=== PATIENT | male | born 1955 | race Caucasian/White ===

== ENCOUNTER → 2019-07-02 07:04 | Outpatient (CLI) | payer MEDICARE, SELFPAY ==
--- NOTE | 2019-07-02 07:07 | CA_ITS ---
APPROVED REPORT Exam: Pharmacologic Technologist: Bobbi Lyles, Ht: 5 ft 6 in Wt: 192 lbs BSA: 1.97 m2 HR: 64 bpm BP: 137/71 mmHg Rhythm: NSR,FIRST DEGREE AV BLOCK Medical History Medical History: HTN, Hyperlipidemia, CAD s/p CABG Medications: Lisinopril,,,,, Asa,,,,, Carvedilol,,,,, Flonase,,,,, Pravachol,,,,, KCL,,,,, Centrum Silver,,,,, LanoPRAZOLE,,,,, Allergies: GENTAMYACIN Cardiac Risk Factors: HTN, Hyperlipidemia, FHX of CAD, Smoking, Previous Cardiac Procedures: CABG Stress Test Details Test: LEXISCAN HR Resting HR: 65 bpm Max Heart Rate (APMHR): 158 bpm Max HR Achieved: 81 bpm Target HR (85% APMHR): 134 bpm % of APMHR: 51 Recovery HR: 70 bpm BP Resting BP: 137.0/71.0 mmHg Max BP: 154.0/80.0 mmHg Recovery BP: 151.0/80.0 mmHg ECG Resting ECG: NSR,FIRST DEGREE AV BLOCK Clinical Exercise duration: 04:04 min Highest Stage Achieved: Exercise capacity: 1.0 METs Stress ECG Conclusion DURING LEXISCAN INFUSION PATIENT HAD SOA BUT NO CHEST PAIN. NO ARRHYTHMIAS/ECTOPY. NO SIGNIFICANT ST-CHANGES. UNREMARKABLE LEXISCAN STRESS. MYOVIEW IMAGES REPORTED SEPARATELY. Test Summary REST . . . . . . . Sitting REST 03:46 . . 65 . 137/ 71 . . Stage 1 01:00 . . 76 . . . . Stage 2 01:00 . . 75 . 128/ 70 . . Stage 3 01:00 . . 74 . 137/ 74 . . Stage 4 01:00 . . 73 . 148/ 86 . . Stage 4 01:04 . . 72 . 148/ 86 . Stop exercise at 04:04 RECOVERY 01:00 . . 70 . 151/ 80 . . RECOVERY 02:00 . . 67 . 151/ 80 . . RECOVERY 03:00 . . 64 . 154/ 80 . . RECOVERY 03:27 . . 71 . 138/ 76 . . Electronically signed by : Hansel Vu, 07/09/2019 12:08:55
--- NOTE | 2019-07-02 07:07 | NM_ITS ---
APPROVED REPORT Exam: Nuclear Stress Test Indication: chest pain..cad..short of breath..fatigue Patient Location: Outpatient Stress Tech: Steffany Lyles IN Tech:Kiley ArriazaMABEL RT(R)(N) Ht: 5 ft 6 in Wt: 192 lbs HR: 64 bpm BP: 137/71 mmHg BSA: 1.97 m2 BMI: 30.9 History: chest pain..cad..short of breath..fatigue Procedure: Patient received a 0.4 mg of intravenous Lexiscan, resting heart rate 64 bpm, resting blood pressure 137/71 mmHg, with Lexiscan maximum heart rate achived was 70 bpm which is % of the maximum predicted heart rate and blood pressure was 151/80 mmHg. With Lexiscan, patient denied any complaint of chest pain. Cardiac Stress and Resting SPECT Images: Cardiac Stress and Resting SPECT images were obtained using technetium 99m Myoview 31.6 mCi stress and 10.61 mCi at rest. EF 57% Small area of redistribution at apex Conclusion: Normal EF Ischemic change at apex Electronically signed by : Timoteo Baird MD 07/03/2019 15:46:39
--- NOTE | 2019-07-02 10:05 | HMH.ITSHM ---
Current Home Medications as stated by this patient Darwin Gonzalez or goodwill representative. [] lisinopril carvedilol asp flonase centrum lansoprazole potassium chloride prarachol
== END ==
PROVIDERS: Visit Provider Physician Assistant
DX: R07.2 Precordial pain (principal); E78.5 Hyperlipidemia, unspecified; I11.9 Hypertensive heart disease without heart failure; I25.10 Atherosclerotic heart disease of native coronary artery without angina pectoris; K21.9 Gastro-esophageal reflux disease without esophagitis; R06.00 Dyspnea, unspecified; R07.9 Chest pain, unspecified; Z95.1 Presence of aortocoronary bypass graft
CPT/HCPCS: 78452; 93017; 93306; A9502; J2785

== ENCOUNTER 2020-03-15 19:56 | Emergency (ER) | payer MEDICARE, SELFPAY ==
[2020-03-15 20:05] VITALS: BP 158/66; PULSE 74; RESP 16; TEMP 36.8; O2SAT 96; BMI 26.6
--- NOTE | 2020-03-15 20:16 | CT_ITS ---
PROCEDURE: CT ABDOMEN PELVIS W CON CLINICAL INDICATION: RLQ pain Right lower quadrant pain COMPARISON: No exams were available for comparison TECHNIQUE: IV Contrast: 75ML Isovue 370 Oral Contrast 10ml Gastroview Axial images obtained with sagittal and coronal reformats. All CT scans at the facility use one or more dose reduction, viz: automated exposure control, ma/kV adjustment per patient size (including targeted exams where dose is matched to indication, i.e. head), or iterative reconstruction technique. FINDINGS: LOWER THORAX: On the most superior image there is a faint ground-glass opacity in the left lower lobe measuring 4 mm. This is incompletely imaged there are post median sternotomy changes ABDOMEN & PELVIS: The liver, spleen, adrenal glands, and kidneys have an unremarkable appearance. There is a small fat density in the junction of the body and tail the pancreas measuring 5 mm and may be due to a lipoma. There is an additional 4 mm fatty density in the head of the pancreas also which may be due to small lipoma. Unremarkable appendix. There is colonic diverticulosis but no evidence of diverticulitis. No pelvic mass or abnormal fluid collection. 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 IMPRESSION: 1. No acute finding. 2. Colonic diverticulosis without diverticulitis. 3. No evidence of appendicitis. 4. 2 small fatty areas in the pancreas which may be due to small lipomas. Follow-up may confirm stability. 5. Advanced avascular necrosis of the left hip Dictated by: Timoteo Baird MD 03/16/2020 05:50 Timoteo Baird MD in [place] 03/16/2020 05:50
--- NOTE | 2020-03-15 20:21 | PC.NURSE ---
Pt completed oral contrast Radiology did not answer
--- NOTE | 2020-03-15 20:34 | HMH.EDNVD ---
ED Disposition Clinical Impression: Abdominal pain in male, Avascular necrosis Disposition: Home, Self-Care Condition on Discharge: Good Instructions: DI for Acute Abdomen Additional Instructions: see pcp for follow up Referrals: Anthony Loyd MD [Primary Care Provider] - - Critical Care Critical Care Time: No Attestation: On 03/15/20, the high probability of a clinically significant, sudden or life threatening deterioration of the following system(s) required my full and direct attention, intervention and personal management. The time I documented below is in addition to time spent performing reported procedures but includes the following listed in this critical care notation. Medical Decision Making - Medical Records Medical records reviewed: Yes: I reviewed the patient's medical records. - [place] Inquiry Pt receiving controlled substance: No Vital Signs: 03/15/20 20:05 Temperature 98.3 F Temperature Source Oral Pulse Rate [Right] 74 Respiratory Rate 16 Blood Pressure [Right Arm] 158/66 H Blood Pressure Mean [Right Arm] 96 Blood Pressure Source [Right Arm] Automatic Cuff Blood Pressure Position [Right Arm] Sitting 02 Sat by Pulse Oximetry 96 Oxygen Delivery Method Room Air - Lab Data Lab results reviewed: Yes: I reviewed the patient's lab results. Lab Results 03/15/20 20:45: WBC 10.9 H, RBC 4.84, Hgb 15.4, Hct 45.2, MCV 93.3, MCH 31.8 H, MCHC 34.1, RDW 14.6, Plt Count 236, MPV 8.2, Neut % (Auto) 63.6, Lymph % (Auto) 22.6, Carlton % (Auto) 5.7, Eos % (Auto) 7.7, Baso % (Auto) 0.3, Neut # (Auto) 6.9, Lymph # (Auto) 2.5, Carlton # (Auto) 0.6, Eos # (Auto) 0.8 H, Baso # (Auto) 0.0, ESR 2 03/15/20 20:45: Sodium 138, Potassium 4.4, Chloride 104, Carbon Dioxide 25, Anion Gap 13.4, BUN 8 L, Creatinine 0.90, Estimated Creat Clear 80, Estimated GFR 85, Est GFR ( Amer) 103, Glucose 113 H, Calcium 9.0, Total Bilirubin 0.3, AST 30, ALT 30, Alkaline Phosphatase 63, C-Reactive Protein 0.7, Total Protein 7.3, Albumin 4.4, Globulin 2.9, Albumin/Globulin Ratio 1.5, Amylase 79, Lipase 171 03/15/20 22:30: Urine Color Yellow, Urine Appearance Clear, Urine pH 6.5, Ur Specific [place] <= 1.005, Urine Protein Negative, Urine Glucose (UA) Negative, Urine Ketones Negative, Urine Blood Negative, Urine Nitrate Negative, Urine Bilirubin Negative, Urine Urobilinogen 0.2, Ur Leukocyte Esterase Negative Result diagrams: 03/15/20 20:45 03/15/20 20:45 Orders (Tests/Meds): ED MEDICATIONS Generic Name Dose Route Start Last Admin Trade Name Freq PRN Reason Stop Dose Admin Sodium Chloride 1,000 mls @ 999 mls/hr 03/15/20 20:30 03/15/20 20:48 Sod Chlor 0.9% 1000ml Bag IV 03/15/20 21:30 999 mls/hr .Q1H1M MARCO Administration Discontinued Medications Generic Name Dose Route Start Last Admin Trade Name Freq PRN Reason Stop Dose Admin Diatrizoate Meglum/Diatrizoate Sod 30 ml 03/15/20 20:20 03/15/20 20:21 Diatrizoate Angy 66% & Diatrizoate Na 10% 30ml Udc PO 03/15/20 20:21 30 ml ONCE ONE Administration Iopamidol 75 ml 03/15/20 22:16 03/15/20 22:17 Iopamidol-370 (76%);100ml Bottle IV 03/15/20 22:17 75 ml ONCE ONE Administration Sodium Chloride 10 ml 03/15/20 22:16 03/15/20 22:17 Sodium Chloride 0.9% 10ml Syr (Rad Only) IV 03/15/20 22:17 10 ml ONCE ONE Administration ORDERS Category Date Time Status CT abdomen pelvis w con Stat Cat Scan 03/15/20 20:16 Taken UA [Urinalysis and Microscopic] Stat Lab 03/15/20 22:30 Results - CT Data CT Scan: Abdomen, Pelvis Time Received: 22:[address] Reviewed: Yes: I have viewed the radiologist's interpretation Preliminary Findings: Abnormal (see report ) Nausea/Vomiting/Diarrhea HPI - General Chief complaint: Abdominal Pain Stated complaint: Abd Pain Time Seen by Provider: 03/15/20 20:10 Mode of Arrival: Ambulatory Source of Information: Patient, Spouse, Medical Record Limitations: No Limitations Description of Symptoms (Recal
[2020-03-15 20:53] LABS: Basophils % 0.3 % (0.1-2.0); Eosinophils # 0.8 K/mm3 (0.0-0.4); Eosinophils % 7.7 % (0.1-12.0); Hematocrit 45.2 % (42.0-52.0); Hemoglobin 15.4 g/dL (14.1-18.0); Lymphocytes # 2.5 K/mm3 (0.7-4.5); Lymphocytes % 22.6 % (10-50); Mean Corpuscular HGB Conc 34.1 g/dL (31.8-35.4); Mean Corpuscular Hemoglobin 31.8 pg (27.0-31.2); Mean Corpuscular Volume 93.3 fl (80-94); Mean Platelet Volume 8.2 fl (7.4-10.4); Monocytes # 0.6 K/mm3 (0.1-1.0); Monocytes % 5.7 % (1.7-9.3); Neutrophils # 6.9 K/mm3 (1.8-7.8); Neutrophils % 63.6 % (37.0-80.0); Platelet Count 236 K/mm3 (142-424); Red Blood Count 4.84 M/mm3 (4.60-6.20); Red Cell Distribution Width 14.6 % (11.5-17.5); White Blood Count 10.9 K/mm3 (4.8-10.8)
[2020-03-15 20:57] LABS: Chloride 104 mmol/L (98-107); Sodium 138 mmol/L (136-145)
[2020-03-15 20:58] LABS: Potassium 4.4 mmoL/L (3.5-5.1)
[2020-03-15 21:00] LABS: Alanine Aminotransferase 30 U/L (12-78); Alkaline Phosphatase 63 U/L (38-126); Amylase 79 U/L (30-110); Anion Gap 13.4 mEq/L (5-15); Aspartate Amino Transferase 30 U/L (17-59); Bilirubin,Total 0.3 mg/dl (0.2-1.3); Blood Urea Nitrogen 8 mg/dl (9-20); Carbon Dioxide 25 mmol/L (22.0-30.0); Creatinine Clearance Estimated 80 mL/min (50-200); Estimated Glomerular Filt Rate 85 ml/min (>60); GFR (African American) 103 ML/MIN (>60)
[2020-03-15 21:01] LABS: Albumin Level 4.4 g/dl (3.5-5.0); Albumin/Globulin Ratio 1.5 (1.1-1.8); Globulin 2.9 g/dL (1.3-3.2); Glucose 113 mg/dl (74-100); Lipase 171 U/L (23-300); Total Protein,Serum 7.3 g/dl (6.3-8.2)
[2020-03-15 21:06] LABS: C-Reactive Protein 0.7 mg/L (0-4)
[2020-03-15 22:08] LABS: Erythrocyte Sedimentation Rate 2 mm/hr (0-20)
[2020-03-15 22:46] LABS: Microscopic, Urine URINE MICROSCOPIC (MICROSCOPIC)
[2020-03-15 22:49] LABS: Appearance,Urine CLEAR (Clear); Bilirubin,Urine Negative (Negative); Blood, Urine Negative (Negative); Color,Urine YELLOW (Yellow); Glucose,Urine (UA) Negative (Negative); Ketones,Urine Negative (Negative); Leukocyte Esterase,Urine Negative (Negative); Nitrate,Urine Negative (Negative); PH,Urine 6.5 (5.0-8.5); Protein,Urine Negative (Negative); Specific Gravity, Urine <= 1.005 (1.005-1.030); Urobilinogen,Urine 0.2 EU/dl (0.2)
[2020-03-15 23:03] VITALS: BP 121/61; PULSE 78; RESP 16; TEMP 36.6
[2020-03-15 23:03] LABS: WBC,Urine Occasional #/hpf (0-3)
[2020-03-15 23:04] LABS: Squamous Epithelial Cell,Urine Occasional #/hpf (0-5)
== END 2020-03-15 23:12 | disposition home or self-care (01) ==
PROVIDERS: Emergency Provider Emergency Medicine; PCP Emergency Medicine
DX: R10.31 Right lower quadrant pain (principal); M87.00 Idiopathic aseptic necrosis of unspecified bone; I10 Essential (primary) hypertension; I25.10 Atherosclerotic heart disease of native coronary artery without angina pectoris; K21.9 Gastro-esophageal reflux disease without esophagitis; E78.5 Hyperlipidemia, unspecified; F17.210 Nicotine dependence, cigarettes, uncomplicated; Z79.899 Other long term (current) drug therapy
CPT/HCPCS: 74177; 80053; 81001; 82150; 83690; 85025; 85651; 86140; 96365; 96375; 99283; Q9967

== ENCOUNTER → 2020-04-12 12:30 | Outpatient (CLI) | payer MEDICARE, SELFPAY ==
--- NOTE | 2020-04-12 12:35 | XR_ITS ---
PROCEDURE: XR HIP LT 2-3V W/PELVIS CLINICAL INDICATION: left hip pain COMPARISON: No exams were available for comparison FINDINGS: There is avascular necrosis of the left femoral head with collapse the left femoral cortex superiorly with associated osteoarthritic changes. No acute fracture or dislocation is evident. IMPRESSION: Severe avascular necrosis of the left hip with associated secondary osteoarthritic changes. Dictated by: Timoteo Baird MD 04/12/2020 14:56 Timoteo Baird MD in [place] 04/12/2020 14:56
== END ==
PROVIDERS: PCP Emergency Medicine; Visit Provider Orthopaedic Surgery
DX: M25.552 Pain in left hip (principal)
CPT/HCPCS: 73502

== ENCOUNTER → 2020-05-07 11:31 | Outpatient (CLI) | payer MEDICARE, SELFPAY ==
[2020-05-07 13:19] LABS: Coronavirus 19 IgG Antibody Negative (Negative); Coronavirus 19 IgM Antibody Negative (Negative)
== END ==
PROVIDERS: Visit Provider Internal Medicine Gastroenterology
DX: Z01.812 Encounter for preprocedural laboratory examination (principal); Z11.52 Encounter for screening for COVID-19; Z12.11 Encounter for screening for malignant neoplasm of colon; R10.31 Right lower quadrant pain
CPT/HCPCS: 36415; 86328

== ENCOUNTER 2020-05-09 10:19 | Day surgery (SDC) | payer MEDICARE, SELFPAY ==
[2020-05-03 11:38] VITALS: BMI 30.9
[2020-05-09 10:53] VITALS: BP 156/89; PULSE 75; RESP 18; TEMP 36.2; O2SAT 98
--- NOTE | 2020-05-09 11:34 | P.PN_ITS ---
[facility] Anesthesia Checklist - Patient Identification Patient Identification: Arm Band - Structural Data Admitted From: Home Planned Operative Procedure/s: colonoscopy Consent for Planned Operative Procedure(s) Verified: Yes Verified Documents: Surgical Consent, History and Physical - NPO Status Verified Time NPO: 00:00 - Additional verifications Anesthesia Reactions: No - Airway Assessment C-Spine Mobility Assessed: Yes (mp2) TMJ Mobility Assessed: Yes Dentition: Dentures-good fit - Neurological Assessment Level of Consciousness: Awake, Alert - Anesthesia Plan Anesthesia Risk discussed: Yes Anesthesia Plan: Verified ASA Class: III Anesthesia Type: MAC [facility] History I have reviewed the patient's past medical history: Yes Medical History: Reports:: Coronary Artery Disease, Gastroesophageal Reflux Disease(GERD), Hyperlipidemia, Hypertension Denies:: Cancer, Diabetes Mellitus Type 1, Diabetes Mellitus Type 2, Internal Pacemaker, MRSA, Seizures *Have you ever received a pneumonia vaccine?: Yes *Have you received a flu vaccine this season?: Yes Anesthesia experience/problems:: nac Other Surgeries: Yes: CABG, Cardiac Catheterization, Cardiac Surgery, Colonoscopy, Coronary Stent. No: Pacemaker Amputation: No Fractures: No - *Social History Last grade of school completed: High school graduate Smoking Status: Former smoker Tobacco Type: cigarettes # Packs/Day (cigarettes): 1 Smoking End Date: 06/2019 Alcohol Intake: current Alcohol Intake Frequency:: a few times a week Substance Use Type: marijuana *Occupational Status:: retired Housing: house Household Members: significant other *Travel in the last 8 weeks: None Family Hx:: Coronary Artery Disease
[2020-05-09 11:53] VITALS: BP 92/53; PULSE 66; RESP 16; TEMP 36.3; O2SAT 94
--- NOTE | 2020-05-09 11:54 | P.PCN_ITS ---
[facility] Procedure Note Procedure Note:: Colonoscopy Procedure Report: Colonoscopy Endoscopist: Demetris Salguero II, MD Referring physician: Anthony Loyd MD Date of Procedure: May 09, 2020 Equipment: Olympus 180 variable stiffness pediatric colonoscope Sedation: MAC sedation Indication: Mr. Gonzalez is a 64-year-old gentleman who reports right lower quadrant abdominal pain and discomfort. He has had some straining and hard stools that have improved with stool softeners. The patient also has moderate gassiness. He reports no significant bloating. He reports no rectal bleeding, weight loss or family history of colon cancer. He has had 3 prior colonoscopies and his last was 4 years ago in [facility]. The patient did have a recent CT scan of the abdomen and pelvis that was reportedly normal. Procedure: Prior to the procedure, a history and physical exam was performed, and patient's medications and allergies were reviewed. The risks, benefits and alternatives of the sedation and procedure were discussed with the patient. All questions were answered and informed consent was obtained. The patient was brought to the procedure room. Patient identification and proposed procedure were verified by the physician and the nurse. The patient was placed in a left lateral decubitus position and the scope was passed under direct vision. Throughout the procedure, the patient's blood pressure, pulse, and oxygen saturations were monitored continuously. The colonoscopy was accomplished without difficulty. The patient tolerated the procedure well. Findings: On digital rectal examination there was normal rectal tone. There were no external hemorrhoids. The colonoscope was introduced through the anal canal to the rectum and advanced to the cecum. The ileocecal valve and appendiceal orifice were identified. The scope was advanced a short distance into the ileum which appeared grossly normal. The scope was then withdrawn into the colon. The cecum, ascending and transverse colon and mucosa were grossly normal. There were scattered diverticuli throughout the descending and sigmoid colon (LEFT colon). The rectum itself was normal. Upon retroflexion within the rectum there were grade 1-2 internal hemorrhoids. The preparation was excellent throughout with [place] Preparation Score of 9. The cecal time was 10 minutes. Impression: 1. Left-sided diverticulosis 2. Grade 1-2 Plan: I would strongly encourage dietary measures and a fiber bowel regimen on a long- term daily maintenance basis. I do feel that he has some functional abdominal pain/hepatic flexure syndrome.
[2020-05-09 12:03] VITALS: BP 98/56; PULSE 72; RESP 16; O2SAT 95
[2020-05-09 12:13] VITALS: BP 95/56; PULSE 75; RESP 16; O2SAT 94
[2020-05-09 12:23] VITALS: BP 100/60; PULSE 63; RESP 16; O2SAT 95
[2020-05-09 12:53] VITALS: BP 132/77; PULSE 66; RESP 16; O2SAT 95
== END 2020-05-09 12:53 | disposition home or self-care (01) ==
LOC: OUTP 10:21
PROVIDERS: PCP Emergency Medicine; Visit Provider Internal Medicine Gastroenterology
PROC: 0DJD8ZZ Inspection of Lower Intestinal Tract, Via Natural or Artificial Opening Endoscopic (ICD-10-PCS; CPT 45378; principal; 2020-05-09 11:30)
DX: K57.30 Diverticulosis of large intestine without perforation or abscess without bleeding (principal); K64.0 First degree hemorrhoids; I25.10 Atherosclerotic heart disease of native coronary artery without angina pectoris; J44.9 Chronic obstructive pulmonary disease, unspecified; I11.9 Hypertensive heart disease without heart failure; K21.9 Gastro-esophageal reflux disease without esophagitis; E78.5 Hyperlipidemia, unspecified; F12.90 Cannabis use, unspecified, uncomplicated; Z72.0 Tobacco use; Z72.89 Other problems related to lifestyle; Z95.1 Presence of aortocoronary bypass graft; Z88.1 Allergy status to other antibiotic agents
CPT/HCPCS: 45378

== ENCOUNTER → 2020-06-30 13:05 | Outpatient (CLI) | payer MEDICARE, SELFPAY | PROVIDERS: PCP Emergency Medicine; Visit Provider Urology | DX: I25.10 Atherosclerotic heart disease of native coronary artery without angina pectoris (principal) | CPT/HCPCS: 93306 ==

== ENCOUNTER → 2020-08-09 12:01 | Outpatient (CLI) | payer MEDICARE, SELFPAY ==
[2020-08-09 12:03] LABS: Microscopic, Urine URINE MICROSCOPIC (MICROSCOPIC)
[2020-08-09 12:28] LABS: Appearance,Urine CLEAR (Clear); Bilirubin,Urine Negative (Negative); Blood, Urine Negative (Negative); Color,Urine YELLOW (Yellow); Glucose,Urine (UA) Negative (Negative); Ketones,Urine Negative (Negative); Leukocyte Esterase,Urine Negative (Negative); Nitrate,Urine Negative (Negative); Protein,Urine Negative (Negative); Urobilinogen,Urine 0.2 EU/dl (0.2)
[2020-08-09 12:34] LABS: Basophils % 0.4 % (0.1-2.0); Eosinophils # 0.8 K/mm3 (0.0-0.4); Eosinophils % 8.3 % (0.1-12.0); Hematocrit 44.4 % (42.0-52.0); Hemoglobin 14.4 g/dL (14.1-18.0); Lymphocytes # 2.6 K/mm3 (0.7-4.5); Lymphocytes % 28.7 % (10-50); Mean Corpuscular HGB Conc 32.4 g/dL (31.8-35.4); Mean Corpuscular Hemoglobin 30.3 pg (27.0-31.2); Mean Corpuscular Volume 93.7 fl (80-94); Monocytes # 0.6 K/mm3 (0.1-1.0); Monocytes % 6.1 % (1.7-9.3); Neutrophils # 5.2 K/mm3 (1.8-7.8); Neutrophils % 56.6 % (37.0-80.0); Platelet Count 234 K/mm3 (142-424); Red Blood Count 4.74 M/mm3 (4.60-6.20); Red Cell Distribution Width 15.3 % (11.5-17.5); White Blood Count 9.2 K/mm3 (4.8-10.8)
[2020-08-09 13:09] LABS: Alanine Aminotransferase 28 U/L (12-78); Albumin Level 4.4 g/dl (3.5-5.0); Albumin/Globulin Ratio 1.6 (1.1-1.8); Alkaline Phosphatase 63 U/L (38-126); Anion Gap 12.7 mEq/L (5-15); Aspartate Amino Transferase 29 U/L (17-59); Bilirubin,Total 0.4 mg/dl (0.2-1.3); Blood Urea Nitrogen 15 mg/dl (9-20); Calcium 9.5 mg/dl (8.4-10.2); Carbon Dioxide 24 mmol/L (22.0-30.0); Chloride 108 mmol/L (98-107); Estimated Glomerular Filt Rate 85 ml/min (>60); GFR (African American) 103 ML/MIN (>60); Globulin 2.8 g/dL (1.3-3.2); Glucose 104 mg/dl (74-100); Potassium 4.7 mmoL/L (3.5-5.1); Sodium 140 mmol/L (136-145); Total Protein,Serum 7.2 g/dl (6.3-8.2)
== END ==
PROVIDERS: Visit Provider Orthopaedic Surgery
DX: R10.9 Unspecified abdominal pain (principal); Z01.818 Encounter for other preprocedural examination; I10 Essential (primary) hypertension; M87.00 Idiopathic aseptic necrosis of unspecified bone
CPT/HCPCS: 36415; 80053; 81001; 85025; 86850

== ENCOUNTER → 2020-08-11 06:37 | Outpatient (CLI) | payer MEDICARE, SELFPAY ==
--- NOTE | 2020-08-11 06:48 | CT_ITS ---
PROCEDURE: CT HIP LT WO CON CLINICAL HISTORY: Avascular Necrosis Preop planning COMPARISON: CT CT ABDOMEN PELVIS W CON from 03/15/2020 CR XR HIP LT 2-3V W/PELVIS from 04/12/2020 TECHNIQUE: Axial images obtained with sagittal and coronal reformats. All CT scans at the facility use one or more dose reduction, viz: automated exposure control, ma/kV adjustment per patient size (including targeted exams where dose is matched to indication, i.e. head), or iterative reconstruction technique. FINDINGS: There is fragmentation of the left femoral head with subchondral sclerosis. A geographic zone demarcation is noted in the mid aspect of the left femoral head with mild impaction of the fragments. There are severe osteoarthritic changes of the left hip. Subchondral cystic areas are present in the acetabulum and femoral head. Left hip joint effusion is noted. There is minimal capsular calcification posteriorly. IMPRESSION: Advanced avascular necrosis of the left femoral head with fragmentation and impaction of the fragments. This is associated with severe osteoarthritic changes of the left hip and a moderate-sized hip joint effusion. Dictated by: Timoteo Baird MD 08/12/2020 15:05 Timoteo Baird MD in [place] 08/12/2020 15:05
--- NOTE | 2020-08-11 06:56 | XR_ITS ---
PROCEDURE: XR CHEST 2V CLINICAL HISTORY: Heart disease, former smoker COMPARISON: CR XR CHEST 2V from 06/22/2019 FINDINGS: Prior median sternotomy. Normal heart size. The lungs are clear without infiltrates, suspicious nodules, or pleural effusions. No acute bony abnormalities. IMPRESSION: No acute findings. Dictated by: Timoteo Baird MD 08/11/2020 07:21 Timoteo Baird MD in [place] 08/11/2020 07:21
== END ==
PROVIDERS: PCP Emergency Medicine; Visit Provider Orthopaedic Surgery
DX: M25.552 Pain in left hip (principal); I10 Essential (primary) hypertension; Z87.891 Personal history of nicotine dependence
CPT/HCPCS: 71046; 73700

== ENCOUNTER → 2020-08-13 13:07 | Outpatient (CLI) | payer MEDICARE, SELFPAY | PROVIDERS: PCP Emergency Medicine; Visit Provider Orthopaedic Surgery | DX: M87.00 Idiopathic aseptic necrosis of unspecified bone (principal); Z01.818 Encounter for other preprocedural examination; Z11.52 Encounter for screening for COVID-19 | CPT/HCPCS: U0003 ==

== ENCOUNTER 2020-08-15 10:31 | Observation (INO) | payer MEDICARE, SELFPAY ==
[2020-08-09 15:00] VITALS: BMI 31.1
[2020-08-15] VITALS (23 sets, daily range): BP systolic 91–160; BP diastolic 41–83; PULSE 60–90; RESP 16–22; TEMP 36.4–42.7; O2SAT 96–100; BMI 31.2
--- NOTE | 2020-08-15 10:43 | HMH.ANESCL ---
[facility] Anesthesia Checklist - Patient Identification Patient Identification: Arm Band - Structural Data Admitted From: Home Planned Operative Procedure/s: Left Total Hip Arthroplasty Consent for Planned Operative Procedure(s) Verified: Yes Verified Documents: Surgical Consent, History and Physical - NPO Status Verified Time NPO: 00:00 - Additional verifications Anesthesia Reactions: No Hx Blood Transfusions: No Blood Transfusion Reaction: No - Airway Assessment C-Spine Mobility Assessed: Yes (mp2) TMJ Mobility Assessed: Yes Dentition: Good Dentition (upper dentures. lower dentition intact) - Neurological Assessment Level of Consciousness: Awake, Alert - Anesthesia Plan Anesthesia Risk discussed: Yes Anesthesia Plan: Verified ASA Class: III Anesthesia Type: MAC w/Spinal [facility] History I have reviewed the patient's past medical history: Yes Medical History: Reports:: Chronic Obstructive Pulmonary Disease (COPD), Coronary Artery Disease, Gastroesophageal Reflux Disease(GERD), Hepatitis (Hx Hep C 2006), Hyperlipidemia, Hypertension Denies:: Cancer, Diabetes Mellitus Type 1, Diabetes Mellitus Type 2, Internal Pacemaker, MRSA, Seizures *Have you ever received a pneumonia vaccine?: Yes *Have you received a flu vaccine this season?: No Other Medical History: Denies: Blood Transfusion Reaction Anesthesia experience/problems:: nac Other Surgeries: Yes: CABG, Cardiac Catheterization, Cardiac Surgery, Colonoscopy, Coronary Stent. No: Pacemaker Amputation: No Fractures: No - *Social History Last grade of school completed: High school graduate Smoking Status: Former smoker Tobacco Type: cigarettes # Packs/Day (cigarettes): 1 Smoking End Date: 04/2020 Alcohol Intake: current Alcohol Intake Frequency:: 0-2 drinks per day Substance Use Type: marijuana *Occupational Status:: retired Housing: house Household Members: significant other *Travel in the last 8 weeks: None Family Hx:: Coronary Artery Disease
--- NOTE | 2020-08-15 13:16 | SUR.OPER ---
1230-family updated at this time
--- NOTE | 2020-08-15 13:41 | SUR.OPER ---
1335-surgeon irrigated/soaked wound with betadine mixed in normal saline for 3 minutes 1341- family updated at this time
--- NOTE | 2020-08-15 14:15 | HMH.PHAINT ---
MEDICATION RECONCILIATION COMPLETED ON PATIENT USING EXTERNAL FILL HISTORY FROM PHARMACY. -TANIKA COLBY, MALICKD
--- NOTE | 2020-08-15 14:35 | XR_ITS ---
PROCEDURE: XR HIP LT 2-3V W/PELVIS CLINICAL INDICATION: s/p left total hip arthroplasty COMPARISON: CR XR HIP LT 2-3V W/PELVIS from 04/12/2020 FINDINGS: Status post total left hip arthroplasty. There is good alignment with no evidence of orthopedic complication. Postsurgical gas is present. IMPRESSION: Good alignment status post total left hip arthroplasty Dictated by: Timoteo Baird MD 08/15/2020 15:40 Timoteo Baird MD in [place] 08/15/2020 15:40
--- NOTE | 2020-08-15 14:37 | P.PN_ITS ---
[facility] Anesthesia Record Part I Intake, IV Amount: 1,200 Estimated blood loss (mL): 200 Urine output (mL): 800 Blood Pressure: 91/58 SaO2: 96 Pulse Rate: 63 Respiratory Rate: 16 Temperature: 97.5 F Patient is:: Drowsy, Stable Stable to PACU at:: 14:30
--- NOTE | 2020-08-15 14:51 | PC.NURSE ---
144-radiology at bedside
--- NOTE | 2020-08-15 15:31 | PC.NURSE ---
1501-detailed report called to YANELY Raymond 1506-pt transported to 2nd floor room 200 via hospital bed per YANELY Thompson and ST Roni with isela le sup, vss, pt stable upon discharge from pacu
--- NOTE | 2020-08-15 15:31 | HMH.OPNOTE ---
Date of procedure: 08/15/20 Pre-op Diagnosis:: 1. Avascular necrosis left femoral head 2. Degenerative arthritis, left hip Post-op Diagnosis:: Same Procedure performed:: Uncemented total hip arthroplasty, left Surgeon:: Virgilio Neal MD Director Of Neurology(s):: Kiley Bearden STRATEGIC PARTNER DEVELOPMENT MANAGER:: Bruce Meza Anesthesia: spinal Estimated blood loss (mL): 200 Clinical Note:: Patient is a 64-year-old male with severe avascular necrosis of the femoral head with secondary degenerative arthritis of the LEFT hip unresponsive to conservative management. He is having severe left hip pain and significant disability and has not responded well to conservative management. His mobility, ability to work, and quality of life is severely impacted. The pain is also affecting his lifestyle, activities of daily living and significantly impacting his sleep. Also he is at a high risk of falls from the arthritis. Therefore a total hip arthroplasty is indicated to relieve pain and to reduce the disability and risk of falls. Please refer to my office note for full details. Operative findings:: Preoperative examination and x-ray findings were consistent with the above diagnosis. Intraoperatively, softening on collapse of the femoral head with marked degenerative changes of the hip joint are noted. The femoral head was grossly deformed with softening and destruction of the articular cartilage; osteophytes were noted on both the acetabular and the femoral side. The capsule/soft tissues are contracted and tight. The capsule was thickened and range of motion was decreased. The bone quality is good. Operative note:: On the day of the procedure the patient was met in the preoperative area and the patient was positively identified. A physical examination was performed and documented. The operative site was appropriately marked and initialed by me. I again reviewed the diagnosis, natural history and management options in detail including both nonsurgical and surgical. We discussed the proposed surgery, risks and benefits and alternatives in detail. The complications discussed include but are not limited to infection, bleeding, injury to nerves, blood vessels and tendons, DVT and PE, fracture, limb length inequality, dislocation, implant malpositioning, implant failure, squeaking, loosening, acetabular wear, osteolysis, periprosthetic femur fracture, heterotopic ossification, abductor weakness and limp, incomplete relief of pain, incomplete recovery of function, chronic pain, likely need for further surgery in future including revision, anesthetic complications including heart attack, stroke and even . We also discussed the postoperative recovery and rehabilitation. Patient verbalized a good understanding and wished to proceed with the proposed surgery. Patient understood the risks, agreed to proceed with surgery, signed the consent form and no guarantees or assurances were given or implied. The patient was brought to the operating room and a spinal anesthesia was administered by the general matcher. The patient was then positioned in the RIGHT lateral decubitus position with the LEFT hip facing up. We used [employer] hip positioner for this. All the bony prominences were appropriately padded. The LEFT hip was then prepped with isopropyl alcohol followed by chlorhexidine and draped in the usual sterile fashion. The entire operative team wore isolation suits and the Operating Room traffic was controlled. The skin incision was marked for a posterior approach to the hip joint. The perineum and the operative site were sealed off with Ioban drape. A preprocedure timeout was performed as per hospital protocol identifying the patient, correct surgery and correct site. Administration of prophylactic antibiotics (IV Ancef and vancomycin) was confirmed with the general matcher. Before completion of the procedure 1 more gram of IV Ancef was administered as the operating time was over 2 hours. We have also administered IV tranex
--- NOTE | 2020-08-15 16:21 | P.PN_ITS ---
[facility] Anesthesia Record Part II Discharge Time: 15:00 Destination: Medical Surgical Department PACU nurse assessment reviewed?: Yes Patient Condition:: Good Anesthesia Complications:: None Swallowing reflex intact?: Yes Cyanosis?: No Blood Pressure: 118/70 Pulse Rate: 61 Temperature: 97.7 F Mental Status: Alert & Oriented Pain level:: 0 Nausea and/or vomitting:: None Intake, IV Amount: 0
--- NOTE | 2020-08-15 16:45 | HMH.ORTHHP ---
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 He is admitted to hospital following an uncomplicated primary left total hip arthroplasty today. He has been having worsening pain in his left hip for several years and the condition has gradually gotten worse. He states the problem started after he fell 6 years ago dislocating his left hip. He states he was treated non operatively with physical therapy. He states that over the last few years, his pain has gradually gotten worse. He localizes the pain to left groin and posterior aspect of the left hip. He also reports radiation of the pain into the left thigh. He says he has constant pain and rates that a 7 out of 10 at rest and 10 out of 10 at its worse. He states standing, sitting and walking aggravates his pain. He has tried over the counter arthritis medication, NSAIDs, heat and rest with no relief. He says his walking distance is severely limited secondary to the hip pain. He also reports significant difficulty with activities of daily living and reports sleep disturbance on a nightly basis. He also reports that the left hip gives out and he is at risk of falls. No history of any right hip pain. He has history of chronic back pain without radicular symptoms. No history of any distal tingling or numbness. No history of any systemic symptoms like fevers, chills or rigors. 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 His medical history includes hypertension, hyperlipidemia, GERD, coronary artery disease, COPD and hypertensive heart disease. He reports that he stopped smoking couple of months ago and is using nicotine patch. Clinical exam and imaging is consistent with advanced avascular necrosis of the left femoral head with collapse and secondary degenerative arthritis of the hip joint. Hip movements are markedly limited and painful. A left total hip arthroplasty is indicated to reduce the risk of falls, improve the pain, mobility and quality of life. The surgical and nonsurgical alternatives were discussed in detail with the patient as well as the risks and benefits of the surgery. Please refer to my office note for full details. [facility] History I have reviewed the patient's past medical history: Yes Medical History: Reports:: Chronic Obstructive Pulmonary Disease (COPD), Coronary Artery Disease, Gastroesophageal Reflux Disease(GERD), Hepatitis (Hx Hep C 2006), Hyperlipidemia, Hypertension Denies:: Cancer, Diabetes Mellitus Type 1, Diabetes Mellitus Type 2, Internal Pacemaker, MRSA, Seizures *Have you ever received a pneumonia vaccine?: Yes *Have you received a flu vaccine this season?: No Other Medical History: Denies: Blood Transfusion Reaction Anesthesia experience/problems:: nac Other Surgeries: Yes: CABG, Cardiac Catheterization, Cardiac Surgery, Colonoscopy, Coronary Stent. No: Pacemaker Amputation: No Fractures: No - *Social History Last grade of school completed: High school graduate Smoking Status: Former smoker Tobacco Type: cigarettes # Packs/Day (cigarettes): 1 Smoking End Date: 04/2020 Alcohol Intake: current Alcohol Intake Frequency:: 0-2 drinks per day Substance Use Type: marijuana *Occupational Status:: retired Housing: house Household Members: significant other *Travel in the last 8 weeks: None Family Hx:: Coronary Artery Disease Review of Systems - Review of Systems Review of systems:: pertinent systems reviewed and negative unless documented below - Constitutional Denies body ache(s), Denies chills, Denies fever(s) - Eyes Denies change in vision - ENT Denies abnormal hearing - *Cardiovascular Denies chest pain, Denies shortness of breath - *Respiratory Denies chest congestion, Denies cough - *Gastrointestinal Denies abdo
[2020-08-15 17:07] LABS: Microscopic,Cath URINE MICROSCOPIC (MICROSCOPIC)
[2020-08-15 17:22] LABS: Appearance,Urine/Cath CLEAR (Clear); Bilirubin,Cath Negative (Negative); Blood, Urine/Cath Negative (Negative); Color,Urine/Cath YELLOW (Yellow); Glucose,Urine/Cath (UA) Negative (Negative); Ketones,Urine/Cath TRACE (Negative); Leukocyte Esterase,Cath Negative (Negative); Nitrate,Cath Negative (Negative); Protein,Urine/Cath Negative (Negative); Urobilinogen,Cath 0.2 EU/dl (0.2)
--- NOTE | 2020-08-15 18:38 | HMH.ACPN2 ---
Internal Medicine - PN: Subj *Date: 08/15/20 *Time: 18:38 Interval history: Patient is a 64-year-old white male, status post left total hip earlier today. We are asked to follow him medically. He has a history of coronary artery disease, status post 5 vessel bypass in 2013. He has done well following the surgery. He is actively followed by the cardiology service, Dr. Vu. He was cleared preoperatively via GXT. Patient is awake, alert and clear. He is having some pain in the left hip and discomfort at the site of the catheter insertion. Draining clear yellow urine. Distal extremities are well perfused, calves are nontender. His heart has a regular S1-S2 his lungs are clear. Exam Vital signs and Labs for Last 24 Hours: Temp Pulse Resp BP Pulse Ox 97.7 F 61 18 118/70 99 08/15/20 16:22 08/15/20 16:22 08/15/20 15:00 08/15/20 16:22 08/15/20 15:31 Laboratory Results - last 24 hr 08/15/20 10:15: Blood Type A Positive, Antibody Screen Negative 08/15/20 14:44: Urine Color Yellow, Urine Appearance Clear, Urine pH 6.0, Ur Specific [place] 1.010, Urine Protein Negative, Urine Glucose (UA) Negative, Urine Ketones Trace, Urine Blood Negative, Urine Nitrate Negative, Urine Bilirubin Negative, Urine Urobilinogen 0.2, Ur Leukocyte Esterase Negative I & O for Last 24 hours: Intake & Output 08/12/20 08/13/20 08/14/20 08/15/20 23:59 23:59 23:59 23:59 Intake Total 1560 / 1560 Output Total 400 / 400 Balance 1160 / 1160 Weight 193 lb 7 oz - Constitutional no acute distress - *Routine HEENT Exam Head: Present: normocephalic Eye: Present: EOMI, PERRL ENT: Present: mucous membranes moist - *Routine Neck Exam Present: supple. Absent: lymphadenopathy - *Routine Respiratory Exam Present: CTA bilaterally - *Routine Cardiovascular Exam Present: RRR - *Routine Abdominal Exam Present: soft, normoactive bowel sounds. Absent: tenderness - *Routine Extremities Exam Present: tenderness. Absent: cyanosis, clubbing, edema, full ROM, calf tenderness - *Routine Skin Exam Present: warm. Absent: rash - *Routine Neurological Exam Present: alert, oriented X3, vision grossly intact, hearing grossly intact. Absent: moving all extremities, facial asymmetry Assessment and Plan (1) Osteoarthritis of left hip Status: Acute Category: Medical Code(s): M16.12 - Unilateral primary osteoarthritis, left hip (2) S/P total hip arthroplasty Status: Acute Category: Surgical Code(s): Z96.649 - Presence of unspecified artificial hip joint (3) Avascular necrosis Status: Acute Category: Medical Code(s): M87.00 - Idiopathic aseptic necrosis of unspecified bone (4) CAD (coronary artery disease) Status: Chronic Qualifiers: Coronary Disease-Associated Artery/Lesion type: unspecified vessel or lesion type [place] vs. transplanted heart: [place] heart Associated angina: with unstable angina Qualified Code(s): I25.110 - Atherosclerotic heart disease of [place] coronary artery with unstable angina pectoris Category: Medical Code(s): I25.10 - Atherosclerotic heart disease of [place] coronary artery without angina pectoris (5) Gastroesophageal reflux disease Status: Chronic Qualifiers: Esophagitis presence: esophagitis presence not specified Qualified Code(s): K21.9 - Gastro-esophageal reflux disease without esophagitis Category: Medical Code(s): K21.9 - Gastro-esophageal reflux disease without esophagitis (6) H/O five vessel coronary artery bypass Status: Chronic Category: Surgical Code(s): Z95.1 - Presence of aortocoronary bypass graft (7) HHD (hypertensive heart disease) Status: Chronic Qualifiers: Heart failure presence: without heart failure Qualified Code(s): I11.9 - Hypertensive heart disease without heart failure Category: Medical Code(s): I11.9 - Hypertensive heart disease without heart failure (8) HLD (hyperlipidemia) Status
[2020-08-16] VITALS (11 sets, daily range): BP systolic 111–136; BP diastolic 43–71; PULSE 76–91; RESP 16–20; TEMP 36.6–36.9; O2SAT 96–100; BMI 30.9
--- NOTE | 2020-08-16 04:06 | PC.NURSE ---
pt alert and oriented. iv patent and infusing per order. dressing to left hip is C/D/I. ice pack applied. abductor pillow in place. scuds on. pt has reported pain throughout the night but has decreased on pain scale since beginning of shift. prn meds given with relief. mojica in place and draining clear yellow urine. call light in reach. vss. will continue to monitor pt condition.
[2020-08-16 06:28] LABS: Basophils % 0.3 % (0.1-2.0); Eosinophils # 0.2 K/mm3 (0.0-0.4); Eosinophils % 2.2 % (0.1-12.0); Hematocrit 36.7 % (42.0-52.0); Lymphocytes # 1.7 K/mm3 (0.7-4.5); Lymphocytes % 19.7 % (10-50); Mean Corpuscular HGB Conc 32.7 g/dL (31.8-35.4); Mean Corpuscular Hemoglobin 30.6 pg (27.0-31.2); Mean Corpuscular Volume 93.4 fl (80-94); Mean Platelet Volume 8.7 fl (7.4-10.4); Monocytes # 0.7 K/mm3 (0.1-1.0); Monocytes % 8.7 % (1.7-9.3); Neutrophils # 5.8 K/mm3 (1.8-7.8); Neutrophils % 69.2 % (37.0-80.0); Platelet Count 193 K/mm3 (142-424); Red Blood Count 3.93 M/mm3 (4.60-6.20); Red Cell Distribution Width 14.9 % (11.5-17.5); White Blood Count 8.4 K/mm3 (4.8-10.8)
[2020-08-16 06:31] LABS: Chloride 107 mmol/L (98-107); Potassium 4.1 mmoL/L (3.5-5.1); Sodium 135 mmol/L (136-145)
[2020-08-16 06:34] LABS: Blood Urea Nitrogen 11 mg/dl (9-20); Creatinine Clearance Estimated 93 mL/min (50-200); Estimated Glomerular Filt Rate 98 ml/min (>60); GFR (African American) 118 ML/MIN (>60)
[2020-08-16 06:35] LABS: Anion Gap 9.1 mEq/L (5-15); Carbon Dioxide 23 mmol/L (22.0-30.0)
[2020-08-16 06:41] LABS: Calcium 8.5 mg/dl (8.4-10.2); Glucose 109 mg/dl (74-100)
--- NOTE | 2020-08-16 07:19 | HMH.PHAVTE ---
[facility] Pharmacy VTE Monitoring - Patient Demographics Admission date: 08/15/20 Report Date: 08/16/20 Time: 07:19 Allergies/Adverse Reactions: Patient Allergies gentamicin Allergy (Mild, Verified 08/09/20 15:04) Height: 1.68 m Weight: 87.345 kg Patient Problems: Current Active Problems Avascular necrosis (Acute) Osteoarthritis of left hip (Acute) S/P total hip arthroplasty (Acute) HLD (hyperlipidemia) (Chronic) HHD (hypertensive heart disease) (Chronic) Gastroesophageal reflux disease (Chronic) H/O five vessel coronary artery bypass (Chronic) CAD (coronary artery disease) (Chronic) - VTE Risk Labs: VTE Related Lab Results Hgb 12.0 g/dL (14.1-18.0) L 08/16/20 06:23 Hct 36.7 % (42.0-52.0) L 08/16/20 06:23 Plt Count 193 K/mm3 (142-424) 08/16/20 06:23 BUN 11 mg/dl (9-20) 08/16/20 06:23 Creatinine 0.80 mg/dl (0.66-1.25) 08/16/20 06:23 Estimated Creat Clear 93 mL/min (50-200) 08/16/20 06:23 Was VTE Risk Assessment Performed: Yes VTE Score: 4 VTE Risk Level: Low Risk - Prophylaxis VTE Prophylaxis Ordered?: Yes Types of VTE Prophylaxis: TEDS Knee High, Pharmacological Location of Applied Device: Bilateral Lower Extremeties Pharmacologic Type: Other (XARELTO)
--- NOTE | 2020-08-16 09:07 | HMH.OTEV ---
OT Inpatient Evaluation Rehab OT IP Evaluation Start: 08/15/20 15:24 Freq: ONCE Status: Complete Protocol: Document 08/16/20 09:02 RUTHY (Rec: 08/16/20 09:07 [facility] [id number]) Rehab OT IP Assessment Subjective History Pt oriented x 3 on arrival. Pt agreeable to engage in therapy evaluation. Pt is s/p total hip arthroplasty to left hip on 08/15/20. Pt had avascular necrosis of L femoral head with degenerative arthritis. Pt has a past medical history of HTN, hyperlipidemia, GERD, CAD, COPD, and hypertensive heart disease. Pt reports prior to surgery he lived at home with his girlfriend. Pt claimed he was completely independent with all ADLs and IADLs. Subjective I could do what I needed, my hip just hurt. Objective Patient Orientation Person,Place,Birthday Upper Extremity Gross ROM WFL Bed Mobility bed mobility-scooting,bed mobility - supine/sit,bed mobility - rolling Assist Level Minimal x 1 (25% assist) Transfer Training Sit/Stand Transfer Assist Level Contact Guard/Hand Hold Chair Transfer Ability Contact Guard/Hand Hold Chair Transfer Technique Sit to/from Ambulatory Chair Transfer Assistive Devices Rolling Walker Rehab OT IP prob,goals,plan Problems Date of Evaluation: 08/16/20 OT IP Problems Bed Mobility,Transfers,Gait, Balance,Self care,Safety Rehab Potential Rehab Potential Good Equipment Needs Assistive Devices Rolling / Wheeled Walker Plan OT intervention Plan Bed Mobility,Transfers,Gait, Balance,Self care,Safety, Therapeutic Exercise OT Plan Frequency BID Duration LOS Discharge Goals Bed Mobility Ability Standby Assistance Sit to Stand Chair Transfer Ability Supervision/Stand by Chair Transfer Ability Supervision/Stand by Chair Transfer Technique Sit to/from Ambulatory Chair Transfer Assistive Devices Rolling Walker Self care skills fully toilet trained,uses utensils to feed self Feeding Ability Independent Lower Body Dressing Ability Ass
--- NOTE | 2020-08-16 09:30 | HMH.PTEV ---
Physical Therapy Evaluation Rehab PT IP Evaluation Start: 08/15/20 15:23 Freq: ONCE Status: Active Protocol: Document 08/16/20 08:40 PHORNIKKIE (Rec: 08/16/20 09:30 PHORNE [id number]) Subjective/History History History 64 yowm adm to [facility] with L hip OA and now S/P L LOGAN. He reports he lives with SO and is independent with all mobility at baseline. Subjective Subjective Pt reports increased pain in the L LE and My bottom hurts from laying in this bed. Rehab PT IP Eval Objective Appearance Patient Behavior Appropriate Patient Orientation Person,Place,Time Difficulty following instructions none Speech Pattern Clear Ambulation Patient Able to Ambulate Yes Ambulation Observation IP General Gait Pattern Observation Antalgic Gait,Decrease Stride Lngth (L) Ambulation Distance (feet) 40 Ambulation Assistive Device Rolling Walker Ambulation Ability Contact Guard/Hand Hold Balance Ability to Arise Able, uses arms to help Sitting Balance Steady, safe Standing Balance Steady, wide stance Dynamic Sitting Balance Ability Good Dynamic Standing Balance Ability Good Transfers Bed Transfer Ability Contact Guard/Hand Hold Chair Transfer Ability Contact Guard/Hand Hold Sit to Stand Bed Transfer Ability Contact Guard/Hand Hold Sit to Stand Chair Transfer Ability Contact Guard/Hand Hold ROM All Extremities PT ROM Status WFL MMT All Extremities PT MMT WFL Abnormal MMT Grade L LE grossly 3/5 throughout Rehab PT IP prob,goals,plan Problems Date of Evaluation: 08/16/20 PT IP Problems Bed Mobility,Transfers,Gait Rehab Potential Rehab Potential Good Equipment Needs Assistive Devices Rolling / Wheeled Walker Plan PT Intervention Plan Bed Mobility,Transfers,Gait, Therapeutic Exercise PT Plan Frequency BID Duration LOS Discharge Goals Bed Transfer Ability Supervision/Stand by Sit to Stand Chair Transfer Ability Supervision/Stand by Ambulation Assistive Device Rolling Walker Ambulation Distance (feet) 75 Discharge Plan PT Discharge Plan Pt is appropriate to return home once medically stable. G -code Required No Eval Complexity Eval Charge Codes 33524 - Moderate Complexity PHYSICIAN CERTIFICATION: I certify t
--- NOTE | 2020-08-16 10:00 | SW/DCPLANNER ---
Addendum entered by Maria Isabel Reeves 08/17/20 10:08: SET UP HOME HEALTH SERVICES WITH [facility] IN [place] WHOM SERVICES THE AREA THAT PATIENT RESIDES IN...PATIENT STATED HE FEELS IT SHOULDN'T TAKE LONG FOR THERAPY BECAUSE HE FEELS HE IS MOTIVATED TO GET BETTER ON HIS OWN... DISCHARGE TODAY WITH SIGNIFICANT OTHER... Original Note: SPOKE WITH PATIENT THIS MORNING REGARDING HIS DISCHARGE PLANNING: PATIENT PRESENTED INTO THE HOSPITAL AND HAD A TOTAL HIP REPLACEMENT UNABLE TO DO CONSERVATIVE MANAGEMENT.... HE IS DOING WELL AND STATED HE IS NOT INTERESTED IN SKILLED REHAB PLACEMENT, HIS BIGGEST CONCERNS ARE HIS PAIN... HE HAS REQUESTED A ROLLING WALKER AND I HAVE ORDERED THIS FOR HIM.. HE ALSO STATED HE WOULD USE HOME HEALTH FOR PT SERVICES, THIS WILL BE SET UP AT TIME OF DISCHARGE...
--- NOTE | 2020-08-16 10:03 | PC.NURSE ---
Pt would benefit having a rolling walker at home due to impaired mobility from left hip surgery.
--- NOTE | 2020-08-16 10:52 | HMH.ACPN2 ---
Internal Medicine - PN: Subj *Date: 08/16/20 *Time: 10:52 Interval history: Postop day 1 left total hip. Patient is complaining of perioperative pain, pain from the [place]. He denies chest pain or shortness of breath. His hemoglobin today is 12. Exam Vital signs and Labs for Last 24 Hours: Temp Pulse Resp BP Pulse Ox 97.9 F 89 20 136/70 97 08/16/20 08:00 08/16/20 08:00 08/16/20 08:00 08/16/20 08:00 08/16/20 08:00 Laboratory Results - last 24 hr 08/15/20 10:15: Blood Type A Positive, Antibody Screen Negative 08/15/20 14:44: Urine Color Yellow, Urine Appearance Clear, Urine pH 6.0, Ur Specific [place] 1.010, Urine Protein Negative, Urine Glucose (UA) Negative, Urine Ketones Trace, Urine Blood Negative, Urine Nitrate Negative, Urine Bilirubin Negative, Urine Urobilinogen 0.2, Ur Leukocyte Esterase Negative 08/16/20 06:23: WBC 8.4, RBC 3.93 L, Hgb 12.0 L, Hct 36.7 L, MCV 93.4, MCH 30.6, MCHC 32.7, RDW 14.9, Plt Count 193, MPV 8.7, Neut % (Auto) 69.2, Lymph % (Auto) 19.7, [place] % (Auto) 8.7, Eos % (Auto) 2.2, Baso % (Auto) 0.3, Neut # (Auto) 5.8, Lymph # (Auto) 1.7, [place] # (Auto) 0.7, Eos # (Auto) 0.2, Baso # (Auto) 0.0 08/16/20 06:23: Sodium 135 L, Potassium 4.1, Chloride 107, Carbon Dioxide 23, Anion Gap 9.1, BUN 11, Creatinine 0.80, Estimated Creat Clear 93, Estimated GFR 98, Est GFR ( Amer) 118, Glucose 109 H, Calcium 8.5 I & O for Last 24 hours: Intake & Output 08/13/20 08/14/20 08/15/20 08/16/20 23:59 23:59 23:59 23:59 Intake Total 1560 / 1560 961 / 961 Output Total 400 / 400 500 / 500 Balance 1160 / 1160 461 / 461 Weight 193 lb 7 oz 192 lb 9 oz - Constitutional no acute distress - *Routine HEENT Exam Head: Present: normocephalic Eye: Present: EOMI, PERRL ENT: Present: mucous membranes moist - *Routine Neck Exam Present: supple. Absent: lymphadenopathy - *Routine Respiratory Exam Present: CTA bilaterally - *Routine Cardiovascular Exam Present: RRR - *Routine Abdominal Exam Present: soft, normoactive bowel sounds. Absent: tenderness - *Routine Extremities Exam Present: tenderness. Absent: calf tenderness - *Routine Skin Exam Present: warm. Absent: rash - *Routine Neurological Exam Present: alert, oriented X3 Assessment and Plan (1) Osteoarthritis of left hip Status: Acute Category: Medical Code(s): M16.12 - Unilateral primary osteoarthritis, left hip (2) S/P total hip arthroplasty Status: Acute Category: Surgical Code(s): Z96.649 - Presence of unspecified artificial hip joint (3) Avascular necrosis Status: Acute Category: Medical Code(s): M87.00 - Idiopathic aseptic necrosis of unspecified bone (4) CAD (coronary artery disease) Status: Chronic Qualifiers: Coronary Disease-Associated Artery/Lesion type: unspecified vessel or lesion type [place] vs. transplanted heart: [place] heart Associated angina: with unstable angina Qualified Code(s): I25.110 - Atherosclerotic heart disease of [place] coronary artery with unstable angina pectoris Category: Medical Code(s): I25.10 - Atherosclerotic heart disease of [place] coronary artery without angina pectoris (5) Gastroesophageal reflux disease Status: Chronic Qualifiers: Esophagitis presence: esophagitis presence not specified Qualified Code(s): K21.9 - Gastro-esophageal reflux disease without esophagitis Category: Medical Code(s): K21.9 - Gastro-esophageal reflux disease without esophagitis (6) H/O five vessel coronary artery bypass Status: Chronic Category: Surgical Code(s): Z95.1 - Presence of aortocoronary bypass graft (7) HHD (hypertensive heart disease) Status: Chronic Qualifiers: Heart failure presence: without heart failure Qualified Code(s): I11.9 - Hypertensive heart disease without heart failure Category: Medical Code(s): I11.9 - Hypertensive heart disease without heart failure (8) HLD (hyperlipidemia) Status: Chronic
--- NOTE | 2020-08-16 13:21 | HMH.ORTHPN ---
Subjective Date: 08/16/20 Time: 12:00 Principal diagnosis: S/p total hip arthroplasty, left Interval history: Patient is status post LEFT total hip arthroplasty post op day #1. Patient is sitting out in the chair; says he is doing well and reports no problems. He reports some left hip pain and says it's well-controlled with medication. No history of any nausea or vomiting. No history of any cough, chest pain, shortness of breath or palpitations. Patient says he is eating and drinking well. No history of any distal tingling or numbness. PN: Obj Ex Vital signs: Temp Pulse Resp BP Pulse Ox 97.9 F 89 20 136/70 97 08/16/20 08:00 08/16/20 08:00 08/16/20 08:00 08/16/20 08:00 08/16/20 08:00 Narrative: Laboratory Results - last 24 hr 08/15/20 14:44: Urine Color Yellow, Urine Appearance Clear, Urine pH 6.0, Ur Specific [place] 1.010, Urine Protein Negative, Urine Glucose (UA) Negative, Urine Ketones Trace, Urine Blood Negative, Urine Nitrate Negative, Urine Bilirubin Negative, Urine Urobilinogen 0.2, Ur Leukocyte Esterase Negative 08/16/20 06:23: WBC 8.4, RBC 3.93 L, Hgb 12.0 L, Hct 36.7 L, MCV 93.4, MCH 30.6, MCHC 32.7, RDW 14.9, Plt Count 193, MPV 8.7, Neut % (Auto) 69.2, Lymph % (Auto) 19.7, Story % (Auto) 8.7, Eos % (Auto) 2.2, Baso % (Auto) 0.3, Neut # (Auto) 5.8, Lymph # (Auto) 1.7, Story # (Auto) 0.7, Eos # (Auto) 0.2, Baso # (Auto) 0.0 08/16/20 06:23: Sodium 135 L, Potassium 4.1, Chloride 107, Carbon Dioxide 23, Anion Gap 9.1, BUN 11, Creatinine 0.80, Estimated Creat Clear 93, Estimated GFR 98, Est GFR ( Amer) 118, Glucose 109 H, Calcium 8.5 Intake & Output 08/14/20 08/15/20 08/16/2021/21 11:59 11:59 11:59 11:59 Intake Total 2521 / 2521 Output Total 900 / 900 Balance 1621 / 1621 Weight 192 lb 9 oz Exam General appearance: alert, active, awake, no acute distress Cardiovascular: regular rate & rhythm, normal peripheral pulses Respiratory: No respiratory distress noted, speaks in full sentences ABD: soft and non tender Neuro: alert, awake, oriented x 3 Psych: normal mood and affect On examination of the lower extremities the limb lengths are equal. Thigh and calf are soft and nontender. On examination of the LEFT hip the dressings are clean, dry and intact. Distal pulses are 2+. Distal sensation is intact to light touch throughout. No motor deficits noted distally. - Urinary Catheter Management Coude Cath placed during this visit: no Progress Note: A&P (1) Osteoarthritis of left hip Status: Acute (2) S/P total hip arthroplasty Status: Acute (3) Avascular necrosis Status: Acute (4) CAD (coronary artery disease) Status: Chronic (5) Gastroesophageal reflux disease Status: Chronic (6) H/O five vessel coronary artery bypass Status: Chronic (7) HHD (hypertensive heart disease) Status: Chronic (8) HLD (hyperlipidemia) Status: Chronic Assessment and Plan for All Diagnoses:: I have reviewed the clinical findings and progress with the patient. Patient is doing very well and reports no problems. Patient is mobilizing well weightbearing as tolerated on the LEFT side with the walker and to continue the same. Continue DVT prophylaxis. Continue abduction pillow when in bed and continue standard precautions for the posterior approach hip replacement. Discontinue IV fluids. Case management looking into discharge planning-likely discharge home tomorrow with home health. Recommend DVT prophylaxis for 6 weeks postop. Continue medical management as per Dr. Asencio.
--- NOTE | 2020-08-16 16:21 | PC.NURSE ---
Pt has c/o left hip pain multiple times this shift. Pt states relief from PO pain medication vs IV pain medication. Pt has ambulated today w/ the help of staff and a standard walker. Rolling walker was brought to pt's room this shift from [facility]. Lung sounds CTA. Active bowel sounds in all 4 quads, no BM reported this shift. Pt is urinating clear, dark yellow urine per urinal. No other acute changes or complaints at this time.
[2020-08-17 01:07] VITALS: RESP 18
[2020-08-17 03:40] VITALS: BP 101/51; PULSE 75; RESP 17; TEMP 36.6; O2SAT 98
[2020-08-17 05:00] VITALS: BMI 30.9
[2020-08-17 05:53] VITALS: RESP 18
--- NOTE | 2020-08-17 06:34 | PC.NURSE ---
pt reports pain intermittently throughout shift. ice pack was applied and prn meds given with relief. pt received no iv pain medication. ambulated with walker. currently sitting up to chair. abductor pillow used while in bed. no acute changes. vss. will continue to monitor
[2020-08-17 07:32] LABS: Chloride 104 mmol/L (98-107); Potassium 3.8 mmoL/L (3.5-5.1); Sodium 136 mmol/L (136-145)
[2020-08-17 07:34] VITALS: BP 105/61; PULSE 85; RESP 18; TEMP 37; O2SAT 97
[2020-08-17 07:35] LABS: Anion Gap 13.8 mEq/L (5-15); Blood Urea Nitrogen 11 mg/dl (9-20); Calcium 8.9 mg/dl (8.4-10.2); Carbon Dioxide 22 mmol/L (22.0-30.0); Creatinine Clearance Estimated 93 mL/min (50-200); Estimated Glomerular Filt Rate 98 ml/min (>60); GFR (African American) 118 ML/MIN (>60); Glucose 114 mg/dl (74-100)
[2020-08-17 07:36] LABS: Basophils % 0.1 % (0.1-2.0); Eosinophils # 0.1 K/mm3 (0.0-0.4); Eosinophils % 0.9 % (0.1-12.0); Hematocrit 34.1 % (42.0-52.0); Hemoglobin 11.3 g/dL (14.1-18.0); Lymphocytes # 1.8 K/mm3 (0.7-4.5); Lymphocytes % 19.3 % (10-50); Mean Corpuscular HGB Conc 33.3 g/dL (31.8-35.4); Mean Corpuscular Volume 93.1 fl (80-94); Mean Platelet Volume 8.8 fl (7.4-10.4); Monocytes # 0.8 K/mm3 (0.1-1.0); Monocytes % 8.5 % (1.7-9.3); Neutrophils # 6.5 K/mm3 (1.8-7.8); Neutrophils % 71.3 % (37.0-80.0); Platelet Count 178 K/mm3 (142-424); Red Blood Count 3.66 M/mm3 (4.60-6.20); Red Cell Distribution Width 14.8 % (11.5-17.5); White Blood Count 9.2 K/mm3 (4.8-10.8)
[2020-08-17 08:00] VITALS: O2SAT 97
--- NOTE | 2020-08-17 08:55 | HMH.ACPN2 ---
Internal Medicine - PN: Subj *Date: 08/17/20 *Time: 08:55 Interval history: pt feels much better today - has been up - carol diet and stable labs and vital signs Exam Vital signs and Labs for Last 24 Hours: Temp Pulse Resp BP Pulse Ox 98.6 F 85 18 105/61 L 97 08/17/20 07:34 08/17/20 07:34 08/17/20 07:34 08/17/20 07:34 08/17/20 07:34 Laboratory Results - last 24 hr 08/17/20 07:07: WBC 9.2, RBC 3.66 L, Hgb 11.3 L, Hct 34.1 L, MCV 93.1, MCH 31.0, MCHC 33.3, RDW 14.8, Plt Count 178, MPV 8.8, Neut % (Auto) 71.3, Lymph % (Auto) 19.3, [place] % (Auto) 8.5, Eos % (Auto) 0.9, Baso % (Auto) 0.1, Neut # (Auto) 6.5, Lymph # (Auto) 1.8, [place] # (Auto) 0.8, Eos # (Auto) 0.1, Baso # (Auto) 0.0 08/17/20 07:07: Sodium 136, Potassium 3.8, Chloride 104, Carbon Dioxide 22, Anion Gap 13.8, BUN 11, Creatinine 0.80, Estimated Creat Clear 93, Estimated GFR 98, Est GFR ( Amer) 118, Glucose 114 H, Calcium 8.9 I & O for Last 24 hours: Intake & Output 08/14/20 08/15/20 08/16/20 08/17/20 11:59 11:59 11:59 11:59 Intake Total 2521 / 2521 1070 / 1070 Output Total 900 / 900 Balance 1621 / 1621 1070 / 1070 Weight 192 lb 9 oz 192 lb 8 oz - Constitutional no acute distress - *Routine HEENT Exam Head: Present: normocephalic Eye: Present: EOMI, PERRL ENT: Present: mucous membranes dry - *Routine Neck Exam Present: supple - *Routine Respiratory Exam Present: CTA bilaterally - *Routine Cardiovascular Exam Present: RRR - *Routine Abdominal Exam Present: soft - *Routine Extremities Exam Comments: has bracing present - *Routine Skin Exam Present: intact - *Routine Neurological Exam Present: alert, oriented X3, CN II-XII intact - Routine Psychiatric Exam Present: normal affect Assessment and Plan (1) Osteoarthritis of left hip Status: Acute Category: Medical Code(s): M16.12 - Unilateral primary osteoarthritis, left hip (2) S/P total hip arthroplasty Status: Acute Category: Surgical Code(s): Z96.649 - Presence of unspecified artificial hip joint (3) Avascular necrosis Status: Acute Category: Medical Code(s): M87.00 - Idiopathic aseptic necrosis of unspecified bone (4) CAD (coronary artery disease) Status: Chronic Qualifiers: Coronary Disease-Associated Artery/Lesion type: unspecified vessel or lesion type [place] vs. transplanted heart: [place] heart Associated angina: with unstable angina Qualified Code(s): I25.110 - Atherosclerotic heart disease of [place] coronary artery with unstable angina pectoris Category: Medical Code(s): I25.10 - Atherosclerotic heart disease of [place] coronary artery without angina pectoris (5) Gastroesophageal reflux disease Status: Chronic Qualifiers: Esophagitis presence: esophagitis presence not specified Qualified Code(s): K21.9 - Gastro-esophageal reflux disease without esophagitis Category: Medical Code(s): K21.9 - Gastro-esophageal reflux disease without esophagitis (6) H/O five vessel coronary artery bypass Status: Chronic Category: Surgical Code(s): Z95.1 - Presence of aortocoronary bypass graft (7) HHD (hypertensive heart disease) Status: Chronic Qualifiers: Heart failure presence: without heart failure Qualified Code(s): I11.9 - Hypertensive heart disease without heart failure Category: Medical Code(s): I11.9 - Hypertensive heart disease without heart failure (8) HLD (hyperlipidemia) Status: Chronic Qualifiers: Hyperlipidemia type: mixed hyperlipidemia Qualified Code(s): E78.2 - Mixed hyperlipidemia Category: Medical Code(s): E78.5 - Hyperlipidemia, unspecified
[2020-08-17 11:38] VITALS: BP 106/51; PULSE 73; RESP 18; TEMP 36.4; O2SAT 100
--- NOTE | 2020-08-17 12:15 | HMH.DCSUM ---
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 He was admitted to hospital following an uncomplicated primary left total hip arthroplasty on 08/15/2020. He has been having worsening pain in his left hip for several years and the condition has gradually gotten worse. He states he fell down 6 years ago dislocating his left hip. He states he was treated non operatively with physical therapy. He states that over the last few years, his pain has gradually gotten worse. He localizes the pain to left groin and posterior aspect of the left hip. He also reports radiation of the pain into the left thigh. He says he has constant pain and rates it a 7 out of 10 at rest and 10 out of 10 at its worse. He states standing, sitting and walking aggravates his pain. He has tried over the counter arthritis medication, NSAIDs, heat and rest with no relief. He says his walking distance is severely limited secondary to the hip pain. He also reports significant difficulty with activities of daily living and reports sleep disturbance on a nightly basis. He also reports that the left hip gives out and he is at risk of falls. No history of any right hip pain. He has history of chronic back pain without radicular symptoms. No history of any distal tingling or numbness. No history of any systemic symptoms like fevers, chills or rigors. 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 His medical history includes hypertension, hyperlipidemia, GERD, coronary artery disease, COPD and hypertensive heart disease. He reports that he stopped smoking couple of months ago and is using nicotine patch. Clinical examination and x-ray findings are consistent with avascular necrosis of the femoral head with secondary degenerative changes of the left hip. Hospital Course Hospital Course: Following uncomplicated primary total hip arthroplasty, patient was admitted to the inpatient service and has progressed well. The postoperative check x-ray was satisfactory with good alignment and fixation of the components. Patient was advised to ambulate weightbearing as tolerated on the LEFT side. Patient managed this very well using the walker. His pain is well controlled with oral analgesics. The surgical incision is clean and dry without any active discharge or signs of infection. Distal neurovascular status is intact. No clinical evidence of DVT. Patient is eating and drinking well without any problems. Patient is medically stable at the time of discharge and was medically cleared for discharge by Dr. Loyd. Patient was also cleared for discharge by physical therapy. The dressings were changed on the second postoperative day and the wound is healthy and healing well. No signs of any erythema, induration or discharge. Patient was started on Xarelto 10 mg daily for DVT prophylaxis after surgery. On the day of discharge, the wound is clean and dry. The patient's vital signs have been stable throughout and patient is afebrile at the time of discharge. He is being discharged home with home health/physical therapy for postoperative rehab. Condition at discharge: improved and stable. Treatments and Procedures: Total hip arthroplasty, left hip; date of surgery 08/15/2020. Objective Vital signs: Temp Pulse Resp BP Pulse Ox 97.6 F 73 18 106/51 L 100 08/17/20 11:38 08/17/20 11:38 08/17/20 11:38 08/17/20 11:38 08/17/20 11:38 no acute distress - *Routine HEENT Exam Head: Present: normocephalic Eye: Present: EOMI, PERRL ENT: Present: mucous membranes moist - *Routine Neck Exam Present: supple - *Routine Respiratory Exam Present: CTA bilaterally - *Routine Cardiovascular Exam Present: RRR - *Routine Abdominal Exam Present: soft, normoactive bowel sounds. Absent
== END 2020-08-17 14:01 | disposition home health service (06) ==
LOC: 2ND 10:31
PROVIDERS: Admitting Provider Orthopaedic Surgery; PCP Emergency Medicine; Visit Provider Orthopaedic Surgery
PROC: (CPT 27130; principal; 2020-08-15 11:00)
DX: M16.12 Unilateral primary osteoarthritis, left hip (principal); M87.852 Other osteonecrosis, left femur; I10 Essential (primary) hypertension; I25.10 Atherosclerotic heart disease of native coronary artery without angina pectoris; J44.9 Chronic obstructive pulmonary disease, unspecified; Z95.5 Presence of coronary angioplasty implant and graft; K21.9 Gastro-esophageal reflux disease without esophagitis; Z88.1 Allergy status to other antibiotic agents; Z79.82 Long term (current) use of aspirin; Z79.899 Other long term (current) drug therapy; M89.752 Major osseous defect, left pelvic region and thigh
CPT/HCPCS: 27130; 36415; 73502; 80048; 81001; 85025; 86850; 88304; 88311; 96374; 97116; 97162; 97166; 97530; C1713; C1776; G0378; J2405; J3370

== ENCOUNTER → 2020-09-07 13:18 | Outpatient (CLI) | payer MEDICARE, SELFPAY ==
--- NOTE | 2020-09-07 13:23 | XR_ITS ---
PROCEDURE: XR HIP LT 2-3V W/PELVIS CLINICAL INDICATION: s/p LT LOGAN COMPARISON: CR XR HIP LT 2-3V W/PELVIS from 08/15/2020 FINDINGS: Total left hip arthroplasty is noted. No evidence of periprosthetic fractures. No periprosthetic lucency to suggest loosening or infection. Bone density is normal. No significant soft tissue abnormality. IMPRESSION: Total left hip arthroplasty. No interval change. Dictated by: Melanie Neal 09/07/2020 15:56 Melanie Neal in [facility] 09/07/2020 15:56
== END ==
PROVIDERS: PCP Emergency Medicine; Visit Provider Orthopaedic Surgery
DX: Z96.642 Presence of left artificial hip joint (principal); M87.9 Osteonecrosis, unspecified
CPT/HCPCS: 73502

== ENCOUNTER → 2020-11-09 14:21 | Outpatient (CLI) | payer MEDICARE, SELFPAY ==
--- NOTE | 2020-11-09 14:25 | XR_ITS ---
PROCEDURE: XR HIP LT 2-3V W/PELVIS CLINICAL INDICATION: sp LT LOGAN, sx 08/15/20 COMPARISON: No exams were available for comparison FINDINGS: There has been a prior total left hip replacement. There is good alignment of the prosthesis without obvious orthopedic complications with no significant change from 09/07/2020. IMPRESSION: Good alignment status post total left hip replacement Dictated by: Timoteo Baird MD 11/09/2020 14:59 Timoteo Baird MD in [facility] 11/09/2020 14:59
== END ==
PROVIDERS: PCP Emergency Medicine; Visit Provider Orthopaedic Surgery
DX: Z09 Encounter for follow-up examination after completed treatment for conditions other than malignant neoplasm (principal); Z96.642 Presence of left artificial hip joint
CPT/HCPCS: 73502

== ENCOUNTER → 2020-12-27 08:33 | Outpatient (CLI) | payer MEDICARE, SELFPAY ==
--- NOTE | 2020-12-27 08:36 | US_ITS ---
PROCEDURE: US ABDOMEN LIMITED CLINICAL INDICATION: CONSTIPATION,BLOATING,HEPATIC FLEXURE SYNDROME,HEPATITIS C COMPARISON: No exams were available for comparison FINDINGS: PANCREAS: Unremarkable. No obvious mass or abnormal fluid collection. No ductal dilatation LIVER: No focal liver lesions demonstrated. Homogeneous echogenicity. No intrahepatic biliary ductal dilatation evident. There is appropriate direction of blood flow within a non dilated portal vein RIGHT KIDNEY: Unremarkable. Normal size and echogenicity. No hydronephrosis GALLBLADDER: No gallstones, gallbladder wall thickening, pericholecystic fluid, or biliary dilatation. IMPRESSION: Unremarkable limited abdominal ultrasound as detailed above Dictated by: Timoteo Baird MD 12/27/2020 17:27 Timoteo Baird MD in [facility] 12/27/2020 17:27
[2020-12-27 09:59] LABS: Basophils # 0.1 K/mm3 (0-0.2); Basophils % 0.8 % (0.1-2.0); Eosinophils # 0.2 K/mm3 (0.0-0.4); Eosinophils % 3.4 % (0.1-12.0); Hematocrit 46.4 % (42.0-52.0); Lymphocytes # 1.6 K/mm3 (0.7-4.5); Lymphocytes % 22.9 % (10-50); Mean Corpuscular HGB Conc 32.3 g/dL (31.8-35.4); Mean Corpuscular Hemoglobin 29.4 pg (27.0-31.2); Mean Corpuscular Volume 91.1 fl (80-94); Mean Platelet Volume 8.9 fl (7.4-10.4); Monocytes # 0.6 K/mm3 (0.1-1.0); Monocytes % 8.5 % (1.7-9.3); Neutrophils # 4.6 K/mm3 (1.8-7.8); Neutrophils % 64.4 % (37.0-80.0); Platelet Count 224 K/mm3 (142-424); Red Blood Count 5.09 M/mm3 (4.60-6.20); Red Cell Distribution Width 14.9 % (11.5-17.5); White Blood Count 7.1 K/mm3 (4.8-10.8)
[2020-12-27 11:08] LABS: Alanine Aminotransferase 26 U/L (12-78); Albumin Level 4.3 g/dl (3.5-5.0); Albumin/Globulin Ratio 1.5 (1.1-1.8); Alkaline Phosphatase 57 U/L (38-126); Anion Gap 15.8 mEq/L (5-15); Aspartate Amino Transferase 26 U/L (17-59); Bilirubin,Total 0.4 mg/dl (0.2-1.3); Blood Urea Nitrogen 15 mg/dl (9-20); Calcium 9.2 mg/dl (8.4-10.2); Carbon Dioxide 23 mmol/L (22.0-30.0); Chloride 105 mmol/L (98-107); Estimated Glomerular Filt Rate 85 ml/min (>60); GFR (African American) 103 ML/MIN (>60); Globulin 2.8 g/dL (1.3-3.2); Glucose 102 mg/dl (74-100); Potassium 4.8 mmoL/L (3.5-5.1); Sodium 139 mmol/L (136-145); Total Protein,Serum 7.1 g/dl (6.3-8.2)
[2020-12-28 13:26] LABS: Hep B Core Ab, Total Negative (Negative); Hepatitis B Surface Antigen Negative (Negative)
[2020-12-29 19:50] LABS: HCV Genotype Charge YES; Hepatitis C Genotype 1a (.)
[2020-12-30 01:08] LABS: ALT (SGPT) P5P 28 IU/L (0-55); Alpha 2-Macroglobulins, Qn 330 mg/dL (110-276); Apolipoprotein A-1 137 mg/dL (101-178); Bilirubin, Total 0.2 mg/dL (0.0-1.2); Fibrosis Score 0.45 (0.00-0.21); Fibrosis Stage F1-F2 (.); GGT 45 IU/L (0-65); Haptoglobin 111 mg/dL (32-363); Necroinflammat Activity Grade A0-No activity (.); Necroinflammat Activity Score 0.16 (0.00-0.17)
== END ==
PROVIDERS: PCP Emergency Medicine; Visit Provider Nurse Practitioner Family
DX: B18.2 Chronic viral hepatitis C (principal); F10.10 Alcohol abuse, uncomplicated; K59.89 Other specified functional intestinal disorders; K59.00 Constipation, unspecified; R14.0 Abdominal distension (gaseous)
CPT/HCPCS: 36415; 76705; 80053; 81596; 85025; 86704; 87340; 87522; 87902

== ENCOUNTER 2020-12-30 16:35 | Emergency (ER) | payer MEDICARE, SELFPAY ==
[2020-12-30 16:36] VITALS: BP 129/73; PULSE 107; RESP 18; TEMP 38.5; O2SAT 98; BMI 29.2
--- NOTE | 2020-12-30 17:09 | CT_ITS ---
PROCEDURE INFORMATION: Exam: CT Abdomen And Pelvis Without Contrast Exam date and time: 12/30/2020 5:09 PM Age: 65 years old Clinical indication: Abdominal pain; Flank; Right lower quadrant (rlq); Additional info: Kidney stone eval, RT / left flank pain TECHNIQUE: Imaging protocol: Computed tomography of the abdomen and pelvis without contrast. Radiation optimization: All CT scans at this facility use at least one of these dose optimization techniques: automated exposure control; mA and/or kV adjustment per patient size (includes targeted exams where dose is matched to clinical indication); or iterative reconstruction. COMPARISON: CT ABDOMEN PELVIS W CON 03/15/2020 10:01 PM FINDINGS: Limitations: Absence of IV contrast decreases soft tissue differentiation and sensitivity for detecting soft tissue and vascular pathology. Lungs: There is a 1.1 x 1.3 cm pleural based nodule in the right lower lobe with internal foci of cavitation and irregular margins on series 3, image 7. There are 3 mm nodules in the right upper and lower lobes images 1 and 14, respectively. There is a 7 mm nodule in the left lower lobe on series three, image 4. Liver: The unenhanced liver is unremarkable. Gallbladder and bile ducts: No ductal dilation. No radiopaque gallstones. Pancreas: Unchanged 0.7 cm fat containing lesion in the pancreas likely represents a small lipoma. No pancreatic ductal dilatation. Spleen: The spleen is mildly enlarged measuring 12.6 cm. An accessory spleen is present. Adrenal glands: No adrenal nodule. Kidneys and ureters: No hydronephrosis or calculi. Stomach and bowel: There are scattered colonic diverticula. Appendix: The appendix is normal. Intraperitoneal space: No free air or fluid. No focal fluid collection. Vasculature: The abdominal aorta is normal in caliber with mild atherosclerosis. Lymph nodes: There are enlarged and prominent lymph nodes in the brandt hepatis. Urinary bladder: Unremarkable as visualized. Reproductive: Unremarkable as visualized. Bones/joints: No acute fracture. Note is made of a left hip replacement and sternal closure devices. There are degenerative changes of the spine. Soft tissues: Unremarkable. IMPRESSION: 1. No acute inflammatory process in the abdomen or pelvis. 2. Nodules scattered throughout the lung bases measuring up to 1.3 cm in the right lower lobe with irregular margins and foci of internal cavitation. These nodules could be secondary to an infectious or inflammatory process however neoplasm cannot be excluded.For patients at low risk (minimal or absent history of smoking and of other known risk factors), recommend CT Chest at 3-6 months, then consider CT Chest at 18-24 months. For patients at high risk (history of smoking or of other known risk factors), recommend CT Chest at 3-6 months, then CT Chest at 18-24 months. (Reference: Cindy) REFERENCES: Cindy Saeed, et al. Guidelines for Management of Incidental Pulmonary Nodules Detected on CT Images: From the Fleischner Society 2017. Radiology. 2017;284(1):228-243.
[2020-12-30 17:14] LABS: Appearance,Urine CLEAR (Clear); Bilirubin,Urine Negative (Negative); Blood, Urine Negative (Negative); Color,Urine YELLOW (Yellow); Glucose,Urine (UA) Negative (Negative); Ketones,Urine Negative (Negative); Leukocyte Esterase,Urine Negative (Negative); Microscopic, Urine URINE MICROSCOPIC (MICROSCOPIC); Nitrate,Urine Negative (Negative); Protein,Urine TRACE (Negative); Specific Gravity, Urine 1.025 (1.005-1.030)
[2020-12-30 17:15] LABS: Basophils % 0.3 % (0.1-2.0); Eosinophils % 0.1 % (0.1-12.0); Hematocrit 44.5 % (42.0-52.0); Hemoglobin 14.8 g/dL (14.1-18.0); Lymphocytes # 0.5 K/mm3 (0.7-4.5); Lymphocytes % 8.2 % (10-50); Mean Corpuscular HGB Conc 33.3 g/dL (31.8-35.4); Mean Corpuscular Hemoglobin 30.2 pg (27.0-31.2); Mean Corpuscular Volume 90.6 fl (80-94); Mean Platelet Volume 9.1 fl (7.4-10.4); Monocytes # 0.3 K/mm3 (0.1-1.0); Monocytes % 4.9 % (1.7-9.3); Neutrophils # 5.2 K/mm3 (1.8-7.8); Neutrophils % 86.5 % (37.0-80.0); Platelet Count 128 K/mm3 (142-424); Red Blood Count 4.92 M/mm3 (4.60-6.20); Red Cell Distribution Width 14.7 % (11.5-17.5)
[2020-12-30 17:18] LABS: MANUAL DIFFERENTIAL MANUAL DIFFERENTIAL (MANUAL DIFF)
[2020-12-30 17:21] LABS: Lactic Acid 1.2 mmol/L (0.7-2.1)
[2020-12-30 17:22] LABS: Alanine Aminotransferase 32 U/L (12-78); Albumin Level 3.9 g/dl (3.5-5.0); Albumin/Globulin Ratio 1.3 (1.1-1.8); Alkaline Phosphatase 69 U/L (38-126); Anion Gap 13.4 mEq/L (5-15); Aspartate Amino Transferase 34 U/L (17-59); Bilirubin,Total 0.4 mg/dl (0.2-1.3); Blood Urea Nitrogen 13 mg/dl (9-20); Calcium 8.5 mg/dl (8.4-10.2); Carbon Dioxide 23 mmol/L (22.0-30.0); Chloride 102 mmol/L (98-107); Creatinine Clearance Estimated 87 mL/min (50-200); Estimated Glomerular Filt Rate 97 ml/min (>60); GFR (African American) 118 ML/MIN (>60); Globulin 3.1 g/dL (1.3-3.2); Glucose 132 mg/dl (74-100); Potassium 4.4 mmoL/L (3.5-5.1); Sodium 134 mmol/L (136-145)
[2020-12-30 17:32] LABS: WBC,Urine Occasional #/hpf (0-3)
[2020-12-30 17:33] LABS: Squamous Epithelial Cell,Urine Occasional #/hpf (0-5)
[2020-12-30 18:02] LABS: Lymphocytes % 5 % (10-50); Monocytes % 4 % (2-9); Neutrophils % 90 % (42-76); Platelet Estimate Slight Decrease; Total Cells Counted 100
[2020-12-30 19:37] LABS: Adenovirus,PCR Not Detected (NotDetected); Bordetella Pertussis Not Detected (NotDetected); Chlamydophila Pneumoniae, PCR Not Detected (NotDetected); Coronavirus 229E Not Detected (NotDetected); Coronavirus NL63 Not Detected (NotDetected); Coronavirus OC43 Not Detected (NotDetected); Coronovirus HKU1,PCR Not Detected (NotDetected); Human Metapneumovirus Not Detected (NotDetected); Influenza A, PCR Not Detected (NotDetected); Influenza AH1, 2009 Not Detected (NotDetected); Influenza AH1, PCR Not Detected (NotDetected); Influenza AH3,PCR Not Detected (NotDetected); Influenza B, PCR Not Detected (NotDetected); Mycoplasma Pneumoniae, PCR Not Detected (NotDetected); Parainfluenza 1, PCR Not Detected (NotDetected); Parainfluenza 2, PCR Not Detected (NotDetected); Parainfluenza 3, PCR Not Detected (NotDetected); Parainfluenza 4, PCR Not Detected (NotDetected); Respiratory Syncytial Virus Not Detected (NotDetected); Rhinovirus/Enterovirus Not Detected (NotDetected)
[2020-12-30 19:53] LABS: Coronavirus 19, PCR Not Detected (NotDetected); Influenza A, PCR Not Detected (NotDetected); Influenza B, PCR Not Detected (NotDetected)
--- NOTE | 2020-12-30 19:56 | HMH.EDGENADL ---
ED Disposition Clinical Impression: Lung nodules, Pneumonia Disposition: Home, Self-Care Condition on Discharge: Good Prescriptions: Azithromycin 250 mg PO DAILY #6 tab Transmission Status: Pending to [facility] Doxycycline Hyclate [Doxycycline 50mg Capsule] 100 mg PO BID #20 cap Transmission Status: Pending to [facility] Referrals: Anthony Loyd MD [Primary Care Provider] - - Critical Care Critical Care Time: No Attestation: On 12/30/20, the high probability of a clinically significant, sudden or life threatening deterioration of the following system(s) required my full and direct attention, intervention and personal management. The time I documented below is in addition to time spent performing reported procedures but includes the following listed in this critical care notation. Medical Decision Making - Medical Records Medical records reviewed: Yes: I reviewed the patient's medical records. - [place] Inquiry Pt receiving controlled substance: No Vital Signs: 12/30/20 16:36 Temperature 101.3 F H Temperature Source Oral Pulse Rate [Right Radial] 107 H Respiratory Rate 18 Blood Pressure [Right Arm] 129/73 Blood Pressure Mean [Right Arm] 91 Blood Pressure Source [Right Arm] Automatic Cuff Blood Pressure Position [Right Arm] Sitting 02 Sat by Pulse Oximetry 98 Oxygen Delivery Method Room Air - Lab Data Lab Results 12/30/20 17:00: Urine Color Yellow, Urine Appearance Clear, Urine pH 6.0, Ur Specific [place] 1.025, Urine Protein Trace, Urine Glucose (UA) Negative, Urine Ketones Negative, Urine Blood Negative, Urine Nitrate Negative, Urine Bilirubin Negative, Urine Urobilinogen 1.0, Ur Leukocyte Esterase Negative, Urine RBC None, Urine WBC Occasional, Ur Squamous Epith Cells Occasional, Urine Bacteria None 12/30/20 17:00: WBC 6.0, RBC 4.92, Hgb 14.8, Hct 44.5, MCV 90.6, MCH 30.2, MCHC 33.3, RDW 14.7, Plt Count 128 L D, MPV 9.1, Neut % (Auto) 86.5 H, Lymph % (Auto) 8.2 L, [place] % (Auto) 4.9, Eos % (Auto) 0.1, Baso % (Auto) 0.3, Neut # (Auto) 5.2, Lymph # (Auto) 0.5 L, [place] # (Auto) 0.3, Eos # (Auto) 0.0, Baso # (Auto) 0.0, Total Counted 100, Neutrophils % (Manual) 90 H, Lymphocytes % (Manual) 5 L, Monocytes % (Manual) 4, Basophils % (Manual) 1.0, Platelet Estimate Slight decrease 12/30/20 17:00: Sodium 134 L, Potassium 4.4, Chloride 102, Carbon Dioxide 23, Anion Gap 13.4, BUN 13, Creatinine 0.80, Estimated Creat Clear 87, Estimated GFR 97, Est GFR ( Amer) 118, Glucose 132 H, Calcium 8.5, Total Bilirubin 0.4, AST 34, ALT 32, Alkaline Phosphatase 69, Total Protein 7.0, Albumin 3.9, Globulin 3.1, Albumin/Globulin Ratio 1.3 12/30/20 17:00: Lactate 1.2 Result diagrams: 12/30/20 17:00 12/30/20 17:00 Orders (Tests/Meds): ED MEDICATIONS Generic Name Dose Route Start Last Admin Trade Name Freq PRN Reason Stop Dose Admin Sodium Chloride 1,000 mls @ 999 mls/hr 12/30/20 17:15 12/30/20 17:12 Sod Chlor 0.9% 1000ml Bag IV 12/30/20 18:15 999 mls/hr .Q1H1M MARCO Administration Oxycodone HCl 5 mg 12/30/20 19:06 12/30/20 19:44 Oxycodone 5mg Immediate Release Tablet PO 01/29/21 19:05 5 mg Q4HP PRN Administration Severe Pain Discontinued Medications Generic Name Dose Route Start Last Admin Trade Name Freq PRN Reason Stop Dose Admin Ketorolac Tromethamine 30 mg 12/30/20 17:04 12/30/20 17:12 Ketorolac 30mg/Ml Vial IV 12/30/20 17:05 30 mg ONCE ONE Administration ORDERS Category Date Time Status Rapid PCR Covid and Flu A/B Stat Lab 12/30/20 19:30 Received Respiratory Virus Panel, PCR [Upper Respiratory Panel, Lab 12/30/20 19:30 Received PCR] Stat Blood Culture Stat Micro 12/30/20 17:00 Received Blood Culture Stat Micro 12/30/20 19:43 Received Medical Decision Narrative: Patient is a 65-year-old male presents the ED today for further evaluation of bilateral posterior flank pain myalgias. Patient is well-appearing on initial e
[2020-12-30 20:08] VITALS: BP 120/71; PULSE 91; RESP 18; TEMP 37.2; O2SAT 98
[2020-12-30 20:51] LABS: Procalcitonin 0.398 ng/mL (0.0-2.0)
[2020-12-30 20:58] LABS: Erythrocyte Sedimentation Rate 21 mm/hr (0-20)
== END 2020-12-30 20:11 | disposition home or self-care (01) ==
PROVIDERS: Emergency Provider Student in an Organized Health Care Education/Training Program; PCP Emergency Medicine
DX: J18.9 Pneumonia, unspecified organism (principal); R91.8 Other nonspecific abnormal finding of lung field; I10 Essential (primary) hypertension; E78.5 Hyperlipidemia, unspecified; I25.10 Atherosclerotic heart disease of native coronary artery without angina pectoris; K21.9 Gastro-esophageal reflux disease without esophagitis; J44.9 Chronic obstructive pulmonary disease, unspecified; F17.210 Nicotine dependence, cigarettes, uncomplicated; Z79.899 Other long term (current) drug therapy; Z20.822 Contact with and (suspected) exposure to COVID-19
CPT/HCPCS: 74176; 80053; 81001; 83605; 84145; 85007; 85025; 85651; 86140; 87040; 87486; 87581; 87633; 87798; 96365; 96375; 99284; U0003

== ENCOUNTER → 2021-02-21 13:58 | Outpatient (CLI) | payer MEDICARE, SELFPAY ==
--- NOTE | 2021-02-21 14:02 | XR_ITS ---
PROCEDURE INFORMATION: Exam: XR Left Hip Exam date and time: 02/21/2021 2:02 PM Age: 65 years old Clinical indication: Hip pain; Left hip; Prior surgery; Patient HX: Followup; Additional info: S/P lt arleen TECHNIQUE: Imaging protocol: XR Left hip. Views: 2 or 3 views hip with pelvis when performed. COMPARISON: CT ABDOMEN PELVIS WO CON 12/30/2020 5:34 PM FINDINGS: Bones/joints: Again noted is the hip prosthesis. The prosthetic components and osseous structures are in anatomic alignment. No evidence of loosening or infection of the hardware. Otherwise, unremarkable. The [place] right hip joint is intact. No fractures or dislocations. Soft tissues: Normal. No swelling or abnormal density. IMPRESSION: 1. Left hip prosthesis without evidence complication. 2. Otherwise, unremarkable bony pelvis.
== END ==
PROVIDERS: PCP Emergency Medicine; Visit Provider Orthopaedic Surgery
DX: Z09 Encounter for follow-up examination after completed treatment for conditions other than malignant neoplasm (principal); M25.552 Pain in left hip; Z96.642 Presence of left artificial hip joint
CPT/HCPCS: 73502

== ENCOUNTER → 2021-05-24 13:53 | Outpatient (CLI) | payer MEDICARE, SELFPAY ==
[2021-05-24 15:38] LABS: Chloride 106 mmol/L (98-107); Potassium 5.1 mmoL/L (3.5-5.1); Sodium 142 mmol/L (136-145)
[2021-05-24 15:40] LABS: Blood Urea Nitrogen 12 mg/dl (9-20)
[2021-05-24 15:41] LABS: Alanine Aminotransferase 27 U/L (12-78); Albumin Level 4.9 g/dl (3.5-5.0); Albumin/Globulin Ratio 1.8 (1.1-1.8); Alkaline Phosphatase 52 U/L (38-126); Anion Gap 14.1 mEq/L (5-15); Aspartate Amino Transferase 29 U/L (17-59); Bilirubin,Total 0.5 mg/dl (0.2-1.3); Calcium 9.7 mg/dl (8.4-10.2); Carbon Dioxide 27 mmol/L (22.0-30.0); Estimated Glomerular Filt Rate 85 ml/min (>60); GFR (African American) 103 ML/MIN (>60); Globulin 2.8 g/dL (1.3-3.2); Glucose 100 mg/dl (74-100); Total Protein,Serum 7.7 g/dl (6.3-8.2)
[2021-05-24 16:46] LABS: Basophils # 0.1 K/mm3 (0-0.2); Basophils % 0.6 % (0.1-2.0); Eosinophils # 0.3 K/mm3 (0.0-0.4); Eosinophils % 2.8 % (0.1-12.0); Hemoglobin 15.2 g/dL (14.1-18.0); Lymphocytes # 2.7 K/mm3 (0.7-4.5); Lymphocytes % 27.7 % (10-50); Mean Corpuscular Hemoglobin 31.6 pg (27.0-31.2); Mean Corpuscular Volume 95.6 fl (80-94); Monocytes # 0.5 K/mm3 (0.1-1.0); Monocytes % 5.1 % (1.7-9.3); Neutrophils # 6.2 K/mm3 (1.8-7.8); Neutrophils % 63.8 % (37.0-80.0); Platelet Count 257 K/mm3 (142-424); Red Blood Count 4.81 M/mm3 (4.60-6.20); Red Cell Distribution Width 14.1 % (11.5-17.5); White Blood Count 9.8 K/mm3 (4.8-10.8)
== END ==
PROVIDERS: PCP Emergency Medicine; Visit Provider Nurse Practitioner Family
DX: B18.2 Chronic viral hepatitis C (principal); F10.11 Alcohol abuse, in remission; Z79.899 Other long term (current) drug therapy
CPT/HCPCS: 36415; 80053; 85025; 87522

== ENCOUNTER → 2021-06-16 12:16 | Outpatient (CLI) | payer MEDICARE, SELFPAY ==
[2021-06-16 13:01] LABS: Basophils % 0.3 % (0.1-2.0); Eosinophils # 0.5 K/mm3 (0.0-0.4); Eosinophils % 4.6 % (0.1-12.0); Hematocrit 42.1 % (42.0-52.0); Hemoglobin 14.2 g/dL (14.1-18.0); Lymphocytes # 2.9 K/mm3 (0.7-4.5); Lymphocytes % 29.8 % (10-50); Mean Corpuscular HGB Conc 33.6 g/dL (31.8-35.4); Mean Corpuscular Hemoglobin 31.1 pg (27.0-31.2); Mean Corpuscular Volume 92.5 fl (80-94); Mean Platelet Volume 7.7 fl (7.4-10.4); Monocytes # 0.6 K/mm3 (0.1-1.0); Monocytes % 6.2 % (1.7-9.3); Neutrophils # 5.8 K/mm3 (1.8-7.8); Neutrophils % 59.1 % (37.0-80.0); Platelet Count 242 K/mm3 (142-424); Red Blood Count 4.56 M/mm3 (4.60-6.20); Red Cell Distribution Width 13.5 % (11.5-17.5); White Blood Count 9.7 K/mm3 (4.8-10.8)
[2021-06-16 13:25] LABS: Chloride 106 mmol/L (98-107)
[2021-06-16 13:26] LABS: Potassium 5.2 mmoL/L (3.5-5.1); Sodium 136 mmol/L (136-145)
[2021-06-16 13:28] LABS: Alanine Aminotransferase 17 U/L (12-78); Aspartate Amino Transferase 23 U/L (17-59); Blood Urea Nitrogen 15 mg/dl (9-20); Estimated Glomerular Filt Rate 67 ml/min (>60); GFR (African American) 82 ML/MIN (>60)
[2021-06-16 13:29] LABS: Albumin Level 4.6 g/dl (3.5-5.0); Albumin/Globulin Ratio 2.1 (1.1-1.8); Alkaline Phosphatase 47 U/L (38-126); Anion Gap 9.2 mEq/L (5-15); Bilirubin,Total 0.4 mg/dl (0.2-1.3); Calcium 8.5 mg/dl (8.4-10.2); Carbon Dioxide 26 mmol/L (22.0-30.0); Globulin 2.2 g/dL (1.3-3.2); Glucose 105 mg/dl (74-100); Total Protein,Serum 6.8 g/dl (6.3-8.2)
== END ==
PROVIDERS: Visit Provider Nurse Practitioner Family
DX: B18.2 Chronic viral hepatitis C (principal); F10.11 Alcohol abuse, in remission; Z79.899 Other long term (current) drug therapy
CPT/HCPCS: 36415; 80053; 85025; 87522

== ENCOUNTER → 2021-07-21 11:37 | Outpatient (CLI) | payer MEDICARE, SELFPAY ==
[2021-07-21 12:24] LABS: Basophils % 0.5 % (0.1-2.0); Eosinophils # 0.5 K/mm3 (0.0-0.4); Eosinophils % 5.5 % (0.1-12.0); Hematocrit 43.4 % (42.0-52.0); Hemoglobin 13.8 g/dL (14.1-18.0); Lymphocytes # 2.2 K/mm3 (0.7-4.5); Lymphocytes % 25.3 % (10-50); Mean Corpuscular HGB Conc 31.7 g/dL (31.8-35.4); Mean Corpuscular Volume 97.6 fl (80-94); Mean Platelet Volume 8.7 fl (7.4-10.4); Monocytes # 0.5 K/mm3 (0.1-1.0); Monocytes % 5.5 % (1.7-9.3); Neutrophils # 5.4 K/mm3 (1.8-7.8); Neutrophils % 63.1 % (37.0-80.0); Platelet Count 221 K/mm3 (142-424); Red Blood Count 4.44 M/mm3 (4.60-6.20); White Blood Count 8.5 K/mm3 (4.8-10.8)
[2021-07-21 14:48] LABS: Chloride 107 mmol/L (98-107); Potassium 4.7 mmoL/L (3.5-5.1); Sodium 140 mmol/L (136-145)
[2021-07-21 14:51] LABS: Alanine Aminotransferase 18 U/L (12-78); Albumin Level 4.1 g/dl (3.5-5.0); Albumin/Globulin Ratio 1.8 (1.1-1.8); Alkaline Phosphatase 55 U/L (38-126); Anion Gap 12.7 mEq/L (5-15); Aspartate Amino Transferase 21 U/L (17-59); Bilirubin,Total 0.4 mg/dl (0.2-1.3); Blood Urea Nitrogen 12 mg/dl (9-20); Calcium 8.4 mg/dl (8.4-10.2); Carbon Dioxide 25 mmol/L (22.0-30.0); Estimated Glomerular Filt Rate 97 ml/min (>60); GFR (African American) 118 ML/MIN (>60); Globulin 2.3 g/dL (1.3-3.2); Glucose 103 mg/dl (74-100); Total Protein,Serum 6.4 g/dl (6.3-8.2)
== END ==
PROVIDERS: PCP Emergency Medicine; Visit Provider Nurse Practitioner Family
DX: B18.2 Chronic viral hepatitis C (principal)
CPT/HCPCS: 36415; 80053; 85025; 87522

== ENCOUNTER → 2021-08-22 13:42 | Outpatient (CLI) | payer MEDICARE, SELFPAY ==
--- NOTE | 2021-08-22 13:45 | XR_ITS ---
FINAL REPORT CLINICAL HISTORY: s/p lt LOGAN on 08/15/2020 COMPARISON: February 21, 2021 FINDINGS: 2 views of the left hip and an AP pelvis were obtained. There is no acute fracture or dislocation. The patient is status post total left hip arthroplasty. There are no soft tissue abnormalities. IMPRESSION: Stable postoperative changes. Reviewed, Interpreted and Dictated by Teddy Marx MD Transcribed by Sb Hinds Authenticated by Teddy Marx MD on 08/22/2021 03:16:29 PM [facility]
== END ==
PROVIDERS: PCP Emergency Medicine; Visit Provider Orthopaedic Surgery
DX: M25.552 Pain in left hip (principal); Z96.642 Presence of left artificial hip joint
CPT/HCPCS: 73502

== ENCOUNTER → 2021-10-27 10:30 | Outpatient (CLI) | payer MEDICARE, SELFPAY ==
[2021-10-27 11:19] LABS: Basophils # 0.1 K/mm3 (0-0.2); Basophils % 0.8 % (0.1-2.0); Eosinophils # 0.4 K/mm3 (0.0-0.4); Eosinophils % 4.1 % (0.1-12.0); Hematocrit 40.6 % (42.0-52.0); Hemoglobin 12.9 g/dL (14.1-18.0); Lymphocytes % 23.4 % (10-50); Mean Corpuscular HGB Conc 31.8 g/dL (31.8-35.4); Mean Corpuscular Hemoglobin 30.8 pg (27.0-31.2); Mean Corpuscular Volume 96.9 fl (80-94); Monocytes # 0.5 K/mm3 (0.1-1.0); Monocytes % 5.9 % (1.7-9.3); Neutrophils # 5.6 K/mm3 (1.8-7.8); Neutrophils % 65.8 % (37.0-80.0); Platelet Count 240 K/mm3 (142-424); White Blood Count 8.4 K/mm3 (4.8-10.8)
[2021-10-27 12:18] LABS: Chloride 107 mmol/L (98-107)
[2021-10-27 12:19] LABS: Sodium 138 mmol/L (136-145)
[2021-10-27 12:20] LABS: Potassium 4.7 mmoL/L (3.5-5.1)
[2021-10-27 12:21] LABS: Alanine Aminotransferase 15 U/L (12-78); Aspartate Amino Transferase 22 U/L (17-59); Blood Urea Nitrogen 13 mg/dl (9-20); Estimated Glomerular Filt Rate 97 ml/min (>60); GFR (African American) 118 ML/MIN (>60)
[2021-10-27 12:22] LABS: Albumin Level 4.1 g/dl (3.5-5.0); Albumin/Globulin Ratio 1.7 (1.1-1.8); Alkaline Phosphatase 58 U/L (38-126); Anion Gap 9.7 mEq/L (5-15); Bilirubin,Total 0.3 mg/dl (0.2-1.3); Calcium 9.1 mg/dl (8.4-10.2); Carbon Dioxide 26 mmol/L (22.0-30.0); Globulin 2.4 g/dL (1.3-3.2); Glucose 129 mg/dl (74-100); Total Protein,Serum 6.5 g/dl (6.3-8.2)
== END ==
PROVIDERS: PCP Emergency Medicine; Visit Provider Nurse Practitioner Family
DX: B18.2 Chronic viral hepatitis C (principal); F10.11 Alcohol abuse, in remission; Z79.899 Other long term (current) drug therapy
CPT/HCPCS: 36415; 80053; 85025; 87522

== ENCOUNTER 2022-01-16 09:51 | Emergency (ER) | payer MEDICARE, SELFPAY ==
[2022-01-16] VITALS (8 sets, daily range): BP systolic 143–207; BP diastolic 72–94; PULSE 55–71; RESP 16–18; TEMP 36.6–36.9; O2SAT 98–99; BMI 26.3
--- NOTE | 2022-01-16 09:49 | ECG_ITS ---
APPROVED REPORT Exam: Resting ECG HR:65 bpm ECG Measurements Heart Rate 65 AXES MT 183 P 78 QRSd 112 QRS 37 QT 405 T 66 QTc 416 Conclusion SINUS RHYTHM INCOMPLETE RIGHT BUNDLE BRANCH BLOCK [90+ ms QRS DURATION, TERMINAL R IN V1/V2, 40+ ms S IN I/aVL/V4/V5/V6] BORDERLINE ECG UNCONFIRMED REPORT Electronically signed by : Pawan Peña MD 01/16/2022 21:07:26
--- NOTE | 2022-01-16 09:57 | XR_ITS ---
FINAL REPORT CLINICAL HISTORY: CP w tightness x 2-3 days COMPARISON: August 11, 2020 FINDINGS: The heart size is normal. The mediastinum is normal. There is a rounded density in the right lung base measuring 3.5 x 3.1 cm was not present on the prior exam. There are no pleural effusions. There is no pneumothorax. There is no osseous abnormality. IMPRESSION: New rounded density in the right lung base. Recommend infused chest CT for further evaluation. Reviewed, Interpreted and Dictated by Teddy Marx MD Transcribed by Sb Hinds Authenticated and [facility]
--- NOTE | 2022-01-16 10:03 | PC.NURSE ---
Miguel @ BS for CXR
[2022-01-16 10:14] LABS: Basophils # 0.1 K/mm3 (0-0.2); Basophils % 0.4 % (0.1-2.0); Eosinophils # 0.4 K/mm3 (0.0-0.4); Eosinophils % 2.8 % (0.1-12.0); Hematocrit 42.4 % (42.0-52.0); Hemoglobin 13.5 g/dL (14.1-18.0); Lymphocytes # 1.9 K/mm3 (0.7-4.5); Lymphocytes % 14.4 % (10-50); Mean Corpuscular HGB Conc 31.8 g/dL (31.8-35.4); Mean Corpuscular Hemoglobin 29.6 pg (27.0-31.2); Mean Corpuscular Volume 93.3 fl (80-94); Mean Platelet Volume 8.2 fl (7.4-10.4); Monocytes # 0.7 K/mm3 (0.1-1.0); Monocytes % 5.6 % (1.7-9.3); Neutrophils % 76.8 % (37.0-80.0); Platelet Count 282 K/mm3 (142-424); Red Blood Count 4.55 M/mm3 (4.60-6.20); Red Cell Distribution Width 14.4 % (11.5-17.5)
[2022-01-16 10:16] LABS: Chloride 106 mmol/L (98-107); Potassium 4.7 mmoL/L (3.5-5.1); Sodium 141 mmol/L (136-145)
[2022-01-16 10:19] LABS: Anion Gap 14.7 mEq/L (5-15); Blood Urea Nitrogen 15 mg/dl (9-20); Calcium 8.7 mg/dl (8.4-10.2); Carbon Dioxide 25 mmol/L (22.0-30.0); Creatinine Clearance Estimated 79 mL/min (50-200); Estimated Glomerular Filt Rate 113 ml/min (>60); GFR (African American) 137 ML/MIN (>60); Glucose 112 mg/dl (74-100)
[2022-01-16 10:38] LABS: Troponin I < 0.01 ng/ml (0.00-0.034)
--- NOTE | 2022-01-16 11:10 | HMH.EDGENADL ---
Discharge Plan Disposition Patient Disposition: Home, Self-Care Condition: Good Prescriptions Prescriptions: New amoxicillin-pot clavulanate [Augmentin] 500-125 mg tablet 1 tab PO Q8H Qty: 30 0RF No Action rosuvastatin [Crestor] 40 mg tablet 40 mg PO DAILY Qty: 30 2RF ranolazine [Ranexa] 500 mg tablet extended release 12 hr 500 mg PO BID Qty: 60 2RF omeprazole 40 mg capsule,delayed release(DR/EC) 40 mg PO DAILY tamsulosin 0.4 mg capsule See Rx Instructions .ROUTE .COMPLEX Qty: 90 3RF Dose Instruction: TAKE 1 CAPSULE BY MOUTH AT BEDTIME FOR URINARY FLOW Rx Instructions: TAKE 1 CAPSULE BY MOUTH AT BEDTIME FOR URINARY FLOW carvedilol 12.5 mg tablet 12.5 mg PO BID Qty: 180 3RF lisinopril 10 mg tablet 10 mg PO BID Qty: 180 3RF valsartan 160 mg tablet 160 mg PO DAILY Qty: 30 2RF aspirin 81 MG tablet,chewable 81 mg PO DAILY Hold Instructions: Resume on 09/27/20. Hold aspirin while taking Xarelto for DVT prophylaxis [id number] acid-lutein 1 EACH tablet,chewable 1 each PO DAILY Referrals Follow up/Referrals: Anthony Loyd MD [Primary Care Provider] - See instructions Hansel Pollock MD [Staff Physician] - See instructions Aurleio Luna MD [Physician] - See instructions Activity Restrictions/Add. Instructions Additional Instructions/Restrictions: Follow-up with cardiology for outpatient echocardiogram and stress test as previously scheduled. See Dr. Luna in his office here tomorrow morning at 10 AM. Take Augmentin as prescribed. Additional instructions for CHEST PAIN: See your physician as soon as possible for further evaluation. Return immediately if worsening chest pain, vomiting, shortness of breath, fever, coughing of blood. Clinical Impressions Clinical Impression: Atypical chest pain, Cavitating mass in right lower lung lobe Discharge ED Provider: Josh Brock Adult HPI General Chief complaint: Chest Pain Stated complaint: Chest Pain Time Seen by Provider: 01/16/22 11:10 Mode of Arrival: Ambulatory Source of Information: Patient Limitations: No Limitations Description of Symptoms (Recalled from ER Triage Doc. by RN): to ed per pvt car with c/o intermittent episodes of chest pain x 2 days. c/o sob with episodes. pt states he is scheduled for a cath saturday by dr pollock. History of Present Illness HPI narrative: States that for the past 4 days he has been having intermittent episodes of chest pain. Describes a sensation in his left anterior chest that feels like somebody is grabbing him. It lasts about 5 seconds. This morning also associated with shortness of breath. States that last night and this morning his blood pressure was also elevated, up to 156 systolic this morning. States that he has coronary artery disease, had 5 vessel bypass surgery in 2013 and subsequently had another surgery to place titanium plates on his sternum because of broken sternal wires. He says he is scheduled for a stress test and an echocardiogram this Saturday with Dr. Pollock. He states his current pain does not feel anything like he has had from his heart in the past. States he has been losing weight for the past 2 years, has lost about 50 pounds. States that he was formerly a smoker up to 5 packs of cigarettes per day at one time. Related Data Home Medications Medication Instructions Recorded Confirmed aspirin 81 mg chewable tablet 81 mg PO DAILY HEART HEALTH 06/22/19 01/11/22 multivit with min-folic 1 each PO DAILY Supplement 06/22/19 01/11/22 acid-lutein 400 mcg-250 mcg chewable tablet omeprazole 40 mg capsule,delayed 40 mg PO DAILY 01/11/22 01/11/22 release Previous Rx's Medication Instructions Recorded tamsulosin 0.4 mg capsule See Rx Instructions .Route 12/11/21 .COMPLEX #90 caps carvedilol 12.5 mg tablet 12.5 mg PO BID #180 tabs 01/04/22 lisinopril 10 mg tablet 10 mg PO BID #180
--- NOTE | 2022-01-16 11:23 | CT_ITS ---
FINAL REPORT TECHNIQUE: Thin section axial CT images were obtained from the lung apices to the upper abdomen. IV contrast was administered. MIP 3-D reformats were obtained. This study was performed with techniques to keep radiation doses as low as reasonably achievable (ALARA). Individualized dose reduction techniques using automated exposure control or adjustment of mA and/or kV according to the patient's size were employed. CLINICAL HISTORY: F/U mass in Rt lung, c/o CP w SOA. Former smoker FINDINGS: The heart size is normal. There is no adenopathy. There is no filling defect to suggest PE. There is no aortic dissection. There is no pericardial effusion. There is a cavitary mass in the periphery of the right lower lobe corresponding to the abnormality on plain films. The mass measures 3.4 x 3.2 cm and has irregular margins. No other mass is identified. No pleural effusion. Limited images of the upper abdomen demonstrate no acute abnormality. IMPRESSION: 3.4 cm cavitary mass in the right lower lobe. This could represent necrotic neoplasm or localized abscess. Favor this to be related to neoplasm. This should be amenable to needle sampling. Reviewed, Interpreted and Dictated by Teddy Marx MD Transcribed by Sb Hinds Authenticated and [facility]
--- NOTE | 2022-01-16 11:46 | PC.NURSE ---
Called for Cardiology for consult on patient.
--- NOTE | 2022-01-16 12:10 | PC.NURSE ---
Cardiology in room
--- NOTE | 2022-01-16 12:17 | EXP.CARD.CON ---
History of Present Illness History of Present Illness Consult date: 01/16/22 Requesting physician: Josh Brock Consult reason: chest pain Chief complaint: chest pain Additional Medical History:: Significant past medical hx HTN stable angina CAD medical managment cath 2019 s/o 5 vessel cabg HTN History of present illness: Patient is poor historian: 66 year old white male presented to ED with complaint of left sided chest pressure intermittently. Patient is currently awaiting outpatient stress and echo testing this saturday. Patient reports he thinks pain is related to bad lungs. Denies pain currently. Initial trop negative. EKG negative for ischemic changes. BP elevated 167/86, patient reports running this high at home. Also states has been out of sublingual nitro which he uses occasionally for exertional chest pain. [facility] Social History Smoking Status: Former smoker alcohol intake: former substance use type: other current occupational status: retired Travel in the last 8 weeks: Inside the [place] household members: spouse housing: house current occupational exposures/hazards: No caffeine: Yes Review of Systems Constitutional Constitutional: Denies headache(s) and Denies weakness ENT Ears, Nose, Mouth, and Throat: Denies headache(s) *Cardiovascular Cardiovascular: Reports chest pain *Musculoskeletal Musculoskeletal: Denies numbness *Neurologic Neurologic: Denies headache(s), Denies numbness and Denies weakness Exam Data for Last 24 hours Vital signs and Labs for Last 24 Hours: Temp Pulse Resp BP Pulse Ox 98.4 F 61 18 167/86 H 99 01/16/22 09:51 01/16/22 12:00 01/16/22 12:00 01/16/22 12:00 01/16/22 12:00 Laboratory Results - last 24 hr 01/16/22 10:00: WBC 13.0 H, RBC 4.55 L, Hgb 13.5 L, Hct 42.4, MCV 93.3, MCH 29.6, MCHC 31.8, RDW 14.4, Plt Count 282, MPV 8.2, Neut % (Auto) 76.8, Lymph % (Auto) 14.4, [place] % (Auto) 5.6, Eos % (Auto) 2.8, Baso % (Auto) 0.4, Neut # (Auto) 10.0 H, Lymph # (Auto) 1.9, [place] # (Auto) 0.7, Eos # (Auto) 0.4, Baso # (Auto) 0.1 01/16/22 10:00: Sodium 141, Potassium 4.7, Chloride 106, Carbon Dioxide 25, Anion Gap 14.7, BUN 15, Creatinine 0.70, Estimated Creat Clear 79, Estimated GFR 113, Est GFR ( Amer) 137, Glucose 112 H, Calcium 8.7, Troponin I < 0.01 I & O for Last 24 hours: Intake & Output 01/13/22 01/14/22 01/15/22 01/16/22 23:59 23:59 23:59 23:59 Weight 168 lb Constitutional Constitutional: no acute distress *Routine Respiratory Exam Respiratory: Present CTA bilaterally and symmetric chest movement *Routine Cardiovascular Exam Cardiovascular: Present RRR, Normal S1 and Normal S2 *Routine Abdominal Exam Abdominal: Present soft and normoactive bowel sounds; Absent tenderness *Routine Extremities Exam Extremities: Present full ROM and normal capillary refill; Absent edema *Routine Skin Exam Skin: Present intact, dry and warm Detailed Neck Exam: Thyroids Thyroid: Absent bruit Meds Home Medications and Allergies New Prescriptions to Start Prescriptions: Allergies Allergy/AdvReac Type Severity Reaction Status Date / Time gentamicin Allergy Mild Verified 01/11/22 13:05 Assessment and Plan Assessment and plan all Dx Assessment and Plan All Dx:: Stable angina ccs 3 - Please have scheduled outpatient stress test and echo - Please start ranexa 500mg BID and crestor 40mg QD - Continue BB, aspirin HTN -not well controlled -change lisinopril to valsartan 160mg QD. CV stable for dc home: please have patient start renexa 500mg BID, crestor 40mg QD and change lisinopril to valsartan. Patient needs to have scheduled outpatient echo and stress test this saturday. I sent new rx to [facility] in [facility] emergency department.
[2022-01-16 13:23] LABS: Troponin I < 0.01 ng/ml (0.00-0.034)
== END 2022-01-16 15:14 | disposition home or self-care (01) ==
PROVIDERS: Emergency Provider Emergency Medicine; PCP Emergency Medicine
DX: A15.0 Tuberculosis of lung (principal); Z79.82 Long term (current) use of aspirin; Z79.899 Other long term (current) drug therapy; Z88.1 Allergy status to other antibiotic agents
CPT/HCPCS: 71045; 71275; 80048; 84484; 85025; 93005; 99285; Q9967

== ENCOUNTER → 2022-01-19 11:38 | Outpatient (CLI) | payer MEDICARE, SELFPAY ==
--- NOTE | 2022-01-19 11:38 | NM_ITS ---
APPROVED REPORT Exam: Nuclear Stress Test Indication: CAD, CABG, HTN, HYPERLIPIDEMIA, FM HX, ANGINA, SYNCOPE Patient Location: Outpatient Stress Tech: Luzma GARCIA Tech:MABEL Cortez RT (R)(N)(M) Ht: 5 ft 6 in Wt: 168 lbs HR: 75 bpm BP: 167/76 mmHg BSA: 1.86 m2 TID: 0.83 BMI: 27.1 History: CAD, CABG, HTN, HYPERLIPIDEMIA, FM HX, ANGINA, SYNCOPE Procedure: Patient received a 0.4 mg of intravenous Lexiscan, resting heart rate 75 bpm, resting blood pressure 167/76 mmHg, with Lexiscan maximum heart rate achived was 90 bpm which is Less than 85 % of the maximum predicted heart rate and blood pressure was 219/99 mmHg. With Lexiscan, patient denied any complaint of chest pain. Electrocardiogram Resting electrocardiogram shows sinus rhythm, with Lexiscan there is less than 1.[address] segment depression noted from the baseline EKG. The EKG portion of the Lexiscan is nondiagnostic. Cardiac Stress and Resting SPECT Images: Cardiac Stress and Resting SPECT images were obtained using technetium 99m Myoview 31.5 mCi stress and 10.57 mCi at rest. Gated SPECT analysis of segmental wall motion and calculation of the ejection fraction also done. Prone images were also obtained. Cardiac stress and rest SPECT images show uniform myocardial activity without segmental perfusion abnormality, computer derived ejection fraction is 65% with no regional wall motion abnormality, right ventricle is normal size and contractility. Conclusion: 1. The EKG portion of the Lexiscan is nondiagnostic. 2. No scintigraphic evidence of reversible ischemia seen, computer derived ejection fraction is 65% with no regional wall motion abnormality, right ventricle is normal size and contractility. 3. Normal Lexiscan Myoview study. Electronically signed by : August Miller MD 01/19/2022 15:34:07
--- NOTE | 2022-01-19 13:00 | CA_ITS ---
APPROVED REPORT EXAM: Comprehensive 2D, Doppler, and color-flow Echocardiogram Adult Education Manager: Radha Torres RT(R) Ht: 5 ft 6 in Wt: 168lbs BSA: 1.86 BP: 167/86 mmHg Indications: CP, HTN, CABG 2D Dimensions LVOT 2.09 cm (M/F) 1.5-2.5 LA Volume 36.20 mL LA Volume Index 19.56 mL/m2 (M/F) 16-34 M-Mode Dimensions RVDd 3.14 cm (0.9-2.6) LA Diam 4.22 cm (1.9-4.0) LVDd 4.80 cm (3.5-5.7) Ao Diam 3.83 cm (2.0-3.7) LVDs 3.82 cm (3.5-5.7) IVSd 0.81 cm (0.6-1.1) PWd 0.93 cm (0.6-1.1) EF (Teich) 41.70% FS 20.40% EDV (Teich) 107.50 mL ESV (Teich) 62.70 mL LV Diastology E Decel Time 177.00 (160-240 msec) E/A Ratio 0.8 MED E' 7.60 (< 7 cm/sec) E'/MED E' Ratio 9.42 (>14) LAT E' 12.20 (<10 cm/sec) E/LAT E' Ratio 5.87 (>14) Mitral Valve MV E Max Warren. 72.00 (40-130 cm/s) MV A Velocity 95.00 (40-130 cm/s) E/A Ratio 0.75 MV Decel. Time 177.00 (160-240 ms) MV PHT 52.00 ms Left Ventricle Left atrium is mildly enlarged, left ventricle is normal size mild concentric left ventricular hypertrophy, estimated ejection fraction 55% with no regional wall motion abnormality, grade 1 diastolic dysfunction seen without tissue Doppler evidence of raise left atrial pressure. Right Ventricle Right atrium and right ventricle are mildly enlarged with normal contractility. Aortic Valve Aortic valve is thickened and calcified without Doppler evidence of aortic stenosis, there is mild aortic insufficiency. Mitral Valve Mitral valve is grossly normal, there is mild mitral regurgitation. Tricuspid Valve Tricuspid valve grossly normal, there is mild tricuspid regurgitation, tricuspid regurgitation jet velocity is inadequate for calculation of the right ventricular systolic pressure. Pulmonic Valve Pulmonic valve is poorly visualized. Great Vessels Aortic root is normal size. Inferior vena cava is poorly visualized. Pericardium No significant pericardial effusion noted. Conclusion 1. Mild biatrial enlargement, normal left ventricular size, estimated ejection fraction 55% with no regional wall motion abnormality, grade 1 diastolic dysfunction seen without tissue Doppler evidence of raise left atrial pressure. 2. Mildly enlarged right ventricle with normal contractility. 3. Mild aortic, mild mitral and tricuspid regurgitation. 4. No significant pericardial effusion noted. 5. Inferior vena cava is poorly visualized. Electronically signed by : August Miller MD 01/19/2022 14:51:55
--- NOTE | 2022-01-19 13:46 | CA_ITS ---
APPROVED REPORT Exam: Pharmacologic Technologist: Damaris Garcia, Ht: 5 ft 6 in Wt: 168 lbs BSA: 1.86 m2 HR: 75 bpm BP: 167/76 mmHg Medical History Medications: Lisinopril,,,,, Omeprazole,,,,, Aspirin,,,,, Carvedilol,,,,, Crestor,,,,, TAMSULOSIN,,,,, Valsartan,,,,, Ranexa,,,,, Augmentin,,,,, Stress Test Details Test: LEXISCAN HR Resting HR: 86 bpm Max Heart Rate (APMHR): 155.271722 bpm Max HR Achieved: 104 bpm Target HR (85% APMHR): 131.815680 bpm % of APMHR: 67.10 Recovery HR: 82 bpm BP Resting BP: 167.0/76.0 mmHg Max BP: 219.0/99.0 mmHg Recovery BP: 195.0/90.0 mmHg ECG Clinical Exercise duration: 04:00 min Highest Stage Achieved: Exercise capacity: 1.0 METs Stress ECG Conclusion Symptoms: SOA No CP ST-T Changes: <1.5mm ST Changes Test Summary REST . . . . . . . Resting REST 16:00 . . 86 . 167/ 76 . . Stage 1 01:00 . . 103 . . . . Stage 2 01:00 . . 96 . . . . Stage 3 01:00 . . 90 . 219/ 99 . . Stage 4 01:00 . . 81 . 197/ 91 . Stop exercise at 04:00 RECOVERY 01:00 . . 82 . 195/ 90 . . RECOVERY 01:05 . . 83 . 195/ 90 . . Electronically signed by : August Miller MD 01/19/2022 15:31:50
== END ==
PROVIDERS: PCP Emergency Medicine; Visit Provider Nurse Practitioner
DX: E78.2 Mixed hyperlipidemia (principal); I11.9 Hypertensive heart disease without heart failure; I25.110 Atherosclerotic heart disease of native coronary artery with unstable angina pectoris; I95.9 Hypotension, unspecified; R42 Dizziness and giddiness; Z95.1 Presence of aortocoronary bypass graft
CPT/HCPCS: 78452; 93017; 93306; A9502; J2785

== ENCOUNTER → 2022-01-23 14:00 | Outpatient (CLI) | payer MEDICARE, SELFPAY ==
[2022-01-23 14:37] LABS: Basophils % 0.3 % (0.1-2.0); Eosinophils # 0.3 K/mm3 (0.0-0.4); Eosinophils % 1.7 % (0.1-12.0); Hematocrit 41.3 % (42.0-52.0); Hemoglobin 13.3 g/dL (14.1-18.0); Lymphocytes # 1.8 K/mm3 (0.7-4.5); Lymphocytes % 11.5 % (10-50); Mean Corpuscular HGB Conc 32.2 g/dL (31.8-35.4); Mean Corpuscular Hemoglobin 29.7 pg (27.0-31.2); Mean Corpuscular Volume 92.3 fl (80-94); Mean Platelet Volume 8.4 fl (7.4-10.4); Monocytes # 0.7 K/mm3 (0.1-1.0); Monocytes % 4.3 % (1.7-9.3); Neutrophils # 12.9 K/mm3 (1.8-7.8); Neutrophils % 82.2 % (37.0-80.0); Platelet Count 279 K/mm3 (142-424); Red Blood Count 4.48 M/mm3 (4.60-6.20); Red Cell Distribution Width 14.4 % (11.5-17.5); White Blood Count 15.7 K/mm3 (4.8-10.8)
[2022-01-23 14:39] LABS: MANUAL DIFFERENTIAL MANUAL DIFFERENTIAL (MANUAL DIFF)
[2022-01-23 14:46] LABS: INR 1.01 (0.9-1.1); Prothrombin Time 10.9 seconds (10.1-12.5)
[2022-01-23 14:58] LABS: Blood Urea Nitrogen 15 mg/dl (9-20); Estimated Glomerular Filt Rate 97 ml/min (>60); GFR (African American) 117 ML/MIN (>60)
[2022-01-23 15:04] LABS: C-Reactive Protein 14.3 mg/L (0-4)
[2022-01-23 15:13] LABS: Eosinophils % 1 % (0-3); Lymphocytes % 15 % (10-50); Monocytes % 6 % (2-9); Neutrophils % 78 % (42-76); Platelet Estimate Normal; RBC Morphology Normal; Total Cells Counted 100
[2022-01-27 20:09] LABS: Fungitell(Beta D-Glucan) Serum <31 pg/mL (<80)
[2022-01-28 17:27] LABS: Aspergillus flavus Negative (Neg:<1:1); Aspergillus fumigatus Negative (Neg:<1:1); Aspergillus niger Negative (Neg:<1:1); Blastomyces Antibody Negative (Neg:<1:1)
== END ==
PROVIDERS: PCP Emergency Medicine; Visit Provider Internal Medicine Pulmonary Disease
DX: R07.2 Precordial pain (principal); R06.09 Other forms of dyspnea; J84.10 Pulmonary fibrosis, unspecified; J98.4 Other disorders of lung; Z87.891 Personal history of nicotine dependence
CPT/HCPCS: 36415; 82565; 84520; 85007; 85025; 85610; 86140; 86606; 86612; 87449

== ENCOUNTER → 2022-01-24 08:24 | Outpatient (CLI) | payer MEDICARE, SELFPAY ==
[2022-01-24] VITALS (10 sets, daily range): BP systolic 92–131; BP diastolic 46–88; PULSE 52–68; RESP 16–18; TEMP 36.3–36.7; O2SAT 96–100
--- NOTE | 2022-01-24 08:29 | CT_ITS ---
FINAL REPORT CLINICAL HISTORY: . RIGHT LUNG BIOPSY FINDINGS: CT GUIDEDLUNG BIOPSY. HISTORY: Right lung mass. ATTENDING PHYSICIAN: Dr. Gandhi PHYSICIAN FINANCIAL DIRECTOR: Gulshan Steele PA-C PROCEDURE: After informed consent was obtained and a timeout was performed, the patient was prepped and draped in usual sterile fashion over the right lateral chest. Utilizing local anesthesia and sterile technique with a coaxial system, access to lesion was obtained. A total of 5 separate 20-gauge core biopsies were obtained. In addition, FNA was performed for cultures. Post biopsy films demonstrate no evidence of acute complication. Procedural sedation was provided by the anesthesia department. The patient tolerated the procedure well and left the department in good condition. IMPRESSION: Status post CT guided biopsy of a lung nodule without immediate complication. Films reviewed , interpreted and dictated by Dr. Gandhi. Transcribed by Gulshan Steele PA-C. Reviewed, Interpreted and Dictated by Keaton Gandhi MD Transcribed by TJ Bean Authenticated and [facility]
--- NOTE | 2022-01-24 09:56 | XR_ITS ---
FINAL REPORT CLINICAL HISTORY: POST RIGHT LUNG BIOPSY COMPARISON: January 16, 2022 FINDINGS: Two views of the chest were obtained. The heart size is normal. The mediastinum is normal. Right lower lobe opacity with vague density surrounding the known lesion consistent with post biopsy change. There is no pneumothorax. The bony thorax is intact. IMPRESSION: Post biopsy change without pneumothorax. Reviewed, Interpreted and Dictated by Keaton Gandhi MD Transcribed by Sb Hinds Authenticated and [facility]
--- NOTE | 2022-01-24 10:14 | P.PN_ITS ---
PFSH PFSH Medical History Avascular necrosis CAD (coronary artery disease) Cavitating mass in right lower lung lobe Dyspnea on exertion Gastroesophageal reflux disease HHD (hypertensive heart disease) HLD (hyperlipidemia) Hypertension Hypertension Hypotension Lung nodules Osteoarthritis of left hip Stopped smoking with greater than 30 pack year history Surgical History H/O five vessel coronary artery bypass History of coronary artery bypass graft History of hip replacement History of open heart surgery S/P total hip arthroplasty Family History Father Arteriosclerosis of bypass graft of coronary artery Mother Arteriosclerosis of bypass graft of coronary artery Social History (Updated 01/24/22 @ 08:40 by Maria Isabel Aguilar RN) Smoking Status: Former smoker alcohol intake: former substance use type: other current occupational status: retired Travel in the last 8 weeks: None household members: spouse housing: house current occupational exposures/hazards: No caffeine: Yes [facility] Anesthesia Checklist Patient Identification Patient Identification: Arm Band Structural Data Admitted From: Home Planned Operative Procedure/s: CT Guided Right Lung Biopsy Consent for Planned Operative Procedure(s) Verified: Yes Verified Documents: Surgical Consent and History and Physical NPO Status Verified Time NPO: 00:00 Additional verifications Anesthesia Reactions: No Hx Blood Transfusions: No Blood Transfusion Reaction: No Airway Assessment C-Spine Mobility Assessed: Yes TMJ Mobility Assessed: Yes Dentition: Poor Dentition Neurological Assessment Level of Consciousness: Awake and Alert Anesthesia Plan Anesthesia Risk discussed: Yes Anesthesia Plan: Verified ASA Class: III Anesthesia Type: MAC
--- NOTE | 2022-01-24 12:00 | XR_ITS ---
FINAL REPORT CLINICAL HISTORY: POST RIGHT LUNG BIOPSY COMPARISON: 01/24/2022 FINDINGS: TWO-VIEW CHEST The heart size is normal. The mediastinum is normal. There is a questionable tiny right apical pneumothorax measuring 2% or less. Right basilar lung lesion corresponds to known recently biopsied lesion. Left lung is clear. IMPRESSION: Questionable tiny right apical pneumothorax. Follow-up chest radiographs is recommended if patient develops respiratory related symptoms. Reviewed, Interpreted and Dictated by Keaton Gandhi MD Transcribed by Brigette Bernard Authenticated and [facility]
== END | disposition home or self-care (01) ==
PROVIDERS: PCP Emergency Medicine; Visit Provider Internal Medicine Pulmonary Disease
DX: J98.4 Other disorders of lung (principal); R91.1 Solitary pulmonary nodule
CPT/HCPCS: 10009; 32408; 71046; 77012; 87070; 87075; 87102; 87116; 87205; 87206; 88305; 88333; 88342; 88360

== ENCOUNTER → 2022-02-12 07:56 | Outpatient (CLI) | payer MEDICARE, SELFPAY ==
--- NOTE | 2022-02-12 07:56 | CA_ITS ---
FINAL REPORT TECHNIQUE: Grayscale, color Doppler and duplex Doppler ultrasound of the kidneys, aorta and renal arteries was performed. Multiple velocities were measured. CLINICAL HISTORY: HTN FINDINGS: Aorta velocity: 69.3 cm/sec Right kidney: 9.9 cm. No evidence of hydronephrosis or mass. Right intrarenal RI: 0.67 Right renal artery velocity: 226 cm/sec. Right RAR (Renal artery-Aortic Ratio): 3.3 which is abnormally elevated and consistent with greater than 60% stenosis. Left Kidney: 10.1 cm. No evidence of hydronephrosis or mass. Left intrarenal RI: 0.7 Left renal artery velocity: 148 cm/sec. Left RAR (Renal Artery-Aortic Ratio): 2.14 IMPRESSION: No evidence of significant left renal artery stenosis. Greater than 60% right renal artery stenosis. Recommend correlation with CTA or catheter angiogram. CT angiogram or postcontrast MR angiogram would be more sensitive for evaluation of possible renal artery stenosis. Reviewed, Interpreted and Dictated by Rishi Booker III, MD Transcribed by Khushbu Mckenzie Authenticated and [facility]
== END ==
PROVIDERS: PCP Emergency Medicine; Visit Provider Nurse Practitioner Family
DX: I10 Essential (primary) hypertension (principal)
CPT/HCPCS: 93976

== ENCOUNTER → 2022-02-15 09:19 | Outpatient (CLI) | payer MEDICARE, SELFPAY ==
--- NOTE | 2022-02-15 09:22 | MR_ITS ---
FINAL REPORT CLINICAL HISTORY: STAGE 4 LUNG CANCER. 16ML PROHANCE GIVEN. FINDINGS: Multiplanar MR imaging of the brain was performed without and with contrast. Scattered foci of increased T2 signal are seen in the cerebral white matter that have a nonspecific appearance but likely represent mild chronic ischemic/gliotic changes. There is a chronic left periventricular infarct. There is a chronic infarct in the right inferior cerebellar hemisphere. There is no evidence of intracranial hemorrhage or mass. No abnormal ventricular dilatation is identified. There is no evidence of shift of the midline structures. No abnormal extra-axial fluid collection is seen. No area of abnormal restricted diffusion is identified. No abnormal contrast enhancement is seen. Normal major vessel vascular flow voids are seen. IMPRESSION: Chronic ischemic changes and several chronic infarcts. No evidence of intracranial metastatic disease. Reviewed, Interpreted and Dictated by Rishi Booker III, MD Transcribed by Brigette Bernard Authenticated and [facility]
== END ==
PROVIDERS: PCP Emergency Medicine; Visit Provider Internal Medicine Medical Oncology
DX: C34.31 Malignant neoplasm of lower lobe, right bronchus or lung (principal)
CPT/HCPCS: 70553; A9576

== ENCOUNTER → 2022-03-08 09:19 | Outpatient (CLI) | payer MEDICARE, SELFPAY ==
[2022-03-08 10:17] LABS: Chloride 102 mmol/L (98-107); Potassium 5.2 mmoL/L (3.5-5.1); Sodium 141 mmol/L (136-145)
[2022-03-08 10:20] LABS: Anion Gap 18.2 mEq/L (5-15); Blood Urea Nitrogen 14 mg/dl (9-20); Carbon Dioxide 26 mmol/L (22.0-30.0); Estimated Glomerular Filt Rate 85 ml/min (>60); GFR (African American) 102 ML/MIN (>60)
[2022-03-08 10:21] LABS: Calcium 10.1 mg/dl (8.4-10.2); Glucose 109 mg/dl (74-100)
[2022-03-08 12:06] LABS: Basophils # 0.1 K/mm3 (0-0.2); Basophils % 0.3 % (0.1-2.0); Eosinophils # 0.4 K/mm3 (0.0-0.4); Hematocrit 40.9 % (42.0-52.0); Hemoglobin 12.8 g/dL (14.1-18.0); Lymphocytes # 1.6 K/mm3 (0.7-4.5); Lymphocytes % 8.9 % (10-50); Mean Corpuscular HGB Conc 31.3 g/dL (31.8-35.4); Mean Corpuscular Hemoglobin 29.1 pg (27.0-31.2); Mean Platelet Volume 8.7 fl (7.4-10.4); Monocytes # 0.9 K/mm3 (0.1-1.0); Monocytes % 4.7 % (1.7-9.3); Neutrophils # 15.5 K/mm3 (1.8-7.8); Neutrophils % 84.1 % (37.0-80.0); Platelet Count 355 K/mm3 (142-424); Red Cell Distribution Width 14.1 % (11.5-17.5); White Blood Count 18.4 K/mm3 (4.8-10.8)
[2022-03-08 12:15] LABS: MANUAL DIFFERENTIAL MANUAL DIFFERENTIAL (MANUAL DIFF)
[2022-03-08 13:40] LABS: Eosinophils % 1 % (0-3); Lymphocytes % 14 % (10-50); Monocytes % 3 % (2-9); Neutrophils % 82 % (42-76); Platelet Estimate Normal; RBC Morphology Normal; Total Cells Counted 100
== END ==
PROVIDERS: PCP Emergency Medicine; Visit Provider Surgery
DX: C34.30 Malignant neoplasm of lower lobe, unspecified bronchus or lung (principal)
CPT/HCPCS: 36415; 80048; 85007; 85025

== ENCOUNTER 2022-03-13 06:03 | Day surgery (SDC) | payer MEDICARE, SELFPAY ==
[2022-03-12 10:56] VITALS: BMI 27.4
[2022-03-13] VITALS (10 sets, daily range): BP systolic 98–134; BP diastolic 59–77; PULSE 60–74; RESP 17–20; TEMP 36.1–43; O2SAT 96–99
--- NOTE | 2022-03-13 06:13 | XR_ITS ---
PROCEDURE INFORMATION: Exam: XR Chest Exam date and time: 03/13/2022 6:16 AM Age: 66 years old Clinical indication: Pre-operative exam; Cardiovascular screening and respiratory screening exam; Patient HX: Preop port placement; Additional info: Preop order TECHNIQUE: Imaging protocol: Radiologic exam of the chest. Views: 2 views. COMPARISON: CR XR CHEST 2V 01/24/2022 11:54 AM and 01/16/2022. FINDINGS: Lungs: There is a 4 cm right lower lung field mass which appears to have enlarged since the 01/18 exam. Pleural spaces: There is no pneumothorax. Heart/Mediastinum: No cardiomegaly. Status post CABG. Bones/joints: There is sternal closure hardware in place. IMPRESSION: Right lower lobe mass.
--- NOTE | 2022-03-13 07:00 | XR_ITS ---
FINAL REPORT CLINICAL HISTORY: NAVEEN CATH PLACEMENT 15 SECONDS FLUORO TIME FINDINGS: Fluoroscopic guidance was provided for the operating services. A single spot film was provided. 15 seconds of fluoroscopy time was utilized. IMPRESSION: 15 seconds of fluoroscopy time. Reviewed, Interpreted and Dictated by Teddy Marx MD Transcribed by Sb Hinds Authenticated and [facility]
--- NOTE | 2022-03-13 08:04 | P.PNANES_ITS ---
[facility] Anesthesia Record Part I Anesthesia Record I Intake, IV Amount: 300 Estimated blood loss (mL): 10 Urine output (mL): 0 Blood Pressure: 126/64 SaO2: 97 Pulse Rate: 74 Respiratory Rate: 20 Temperature: 97.1 F Patient is:: Awake Stable to PACU at:: 08:00
--- NOTE | 2022-03-13 08:04 | EXP.OP.NOTE ---
Date of procedure: 03/13/22 Pre-op Diagnosis:: Metastatic lung cancer Post-op Diagnosis:: Same Procedure performed:: Placement of single-lumen open-ended venous access device with implantable port in right subclavian vein using fluoroscopy (PowerPort) Surgeon:: Rishi French MD CORPORATE STRATEGY ANALYST:: Domingo Winters Anesthesia: GETA Estimated blood loss (mL): 10 Operative findings:: Seemingly normal venous anatomy Operative note:: Patient was taken to the operating room. He was positioned in supine position. General anesthesia was induced. Upper chest and neck were prepped and draped in the standard surgical fashion bilaterally. Patient was positioned in Trendelenburg position local anesthetic was infiltrated inferior to the right clavicle. Needle was inserted manipulating it posterior to the clavicle and the right subclavian vein was cannulated with good return of venous flow. Guidewire was inserted. Needle was removed. Fluoroscopy was used to confirm appropriate positioning of the wire. Small incision was made at the wire insertion site. Subcutaneous tissues were dilated with the dilator and breakaway sheath. Dilator and guidewire were removed. Single-lumen open-ended catheter was inserted through the breakaway sheath. Sheath was then removed. Once again fluoroscopy was used to confirm appropriate position of the catheter and it was manipulated such that the tip was near the atriocaval junction. Skin was marked with skin marker for planned subcutaneous tunneling and pocket. Local anesthetic was infiltrated. Incision was made for subcutaneous pocket. Electrocautery was used to create inferior subcutaneous pocket. Catheter was then tunneled subcutaneously to the pocket. Once again fluoroscopy was used to confirm appropriate positioning of the catheter. Catheter was then cut to the appropriate length and secured to the reservoir port. Port was secured with 2-0 PDS within the subcutaneous pocket. It aspirated and flushed without difficulty with saline. There was good hemostasis. Subdermal tissues were closed with running 2-0 Vicryl. Skin was closed with 4-0 Monocryl in a subcuticular fashion. Clean dry sterile dressings were applied. The port was then accessed with the Melgar needle infusion tubing. Once again it aspirated and flushed with out difficulty. With flushed with heparinized saline. Dressing was applied to the access IV tubing. Condition: stable Disposition: PACU Complications:: None immediately apparent.
--- NOTE | 2022-03-13 08:11 | SUR.OPER ---
0757- port remains accessed on the right side of chest. Heparin locked.
--- NOTE | 2022-03-13 08:22 | XR_ITS ---
FINAL REPORT CLINICAL HISTORY: PORT PLACEMENT FINDINGS: SINGLE-VIEW CHEST There is mild cardiomegaly. Right chest port tip terminates in the SVC. The mediastinum is normal. There is are rounded density at the right base measuring 3.8 cm concerning for a mass. There is no pneumothorax. IMPRESSION: Right chest port tip terminates at the SVC. Reviewed, Interpreted and Dictated by Teddy Marx MD Transcribed by Brigette Bernard Authenticated and [facility]
--- NOTE | 2022-03-13 08:31 | SUR.PHASEI ---
0828- radiology at bedside for chest xray 0829- detailed report called to fazal nagy in post op. 0830- pt left in stable condition with fazal nagy in post op. Pt hooked up to monitors, and bed left in lowest position with side rails up.
--- NOTE | 2022-03-17 14:46 | EXP.ANES.II ---
[facility] Anesthesia Record Part II Anesthesia Record Part II Discharge Time: 08:30 Destination: Surgical Day Care (OP Surgery) PACU nurse assessment reviewed?: Yes Patient Condition:: Good Anesthesia Complications:: None Swallowing reflex intact?: Yes Cyanosis?: No Blood Pressure: 134/70 Pulse Rate: 60 Temperature: 97.3 F Mental Status: Alert & Oriented Pain level:: 0 Nausea and/or vomitting:: None Intake, IV Amount: 0
[2022-03-17 14:47] VITALS: BP 134/70; PULSE 60; TEMP 36.3
== END 2022-03-13 09:03 | disposition home or self-care (01) ==
PROVIDERS: PCP Emergency Medicine; Visit Provider Surgery
DX: C34.91 Malignant neoplasm of unspecified part of right bronchus or lung (principal)
CPT/HCPCS: 36561 ×2; 77001; 71045; 71046; 76000; 96374; C1788; J1642

== ENCOUNTER 2022-03-15 08:40 | Outpatient (CLI) | payer MEDICARE, SELFPAY ==
[2022-03-15] VITALS (19 sets, daily range): BP systolic 130–152; BP diastolic 68–84; PULSE 59–74; RESP 18; TEMP 36–36.1; O2SAT 97–99; BMI 28.4
[2022-03-15 10:15] LABS: Thyroid Stimulating Hormone 3.39 uIU/mL (0.465-4.68)
[2022-03-16 14:48] LABS: Adrenocorticotropic Hormone 5.8 pg/mL (7.2-63.3)
== END 2022-03-15 14:50 | disposition home or self-care (01) ==
LOC: INF 08:42
PROVIDERS: PCP Emergency Medicine; Visit Provider Internal Medicine Medical Oncology
DX: C34.31 Malignant neoplasm of lower lobe, right bronchus or lung (principal); Z51.11 Encounter for antineoplastic chemotherapy; Z79.899 Other long term (current) drug therapy
CPT/HCPCS: 82024; 82533; 84443; 96413; 96415; 96417; J1642; J2469; J7060; J9045; J9267; J9271

== ENCOUNTER 2022-04-05 08:32 | Outpatient (CLI) | payer MEDICARE, SELFPAY ==
[2022-04-05] VITALS (19 sets, daily range): BP systolic 118–172; BP diastolic 53–98; PULSE 56–83; RESP 16–18; TEMP 36; O2SAT 99; BMI 28.4
[2022-04-05 08:55] LABS: Basophils % 0.3 % (0.1-2.0); Eosinophils # 0.2 K/mm3 (0.0-0.4); Eosinophils % 2.1 % (0.1-12.0); Hematocrit 33.2 % (42.0-52.0); Hemoglobin 10.6 g/dL (14.1-18.0); Lymphocytes # 1.6 K/mm3 (0.7-4.5); Lymphocytes % 14.3 % (10-50); Mean Corpuscular HGB Conc 31.9 g/dL (31.8-35.4); Mean Corpuscular Hemoglobin 29.1 pg (27.0-31.2); Mean Corpuscular Volume 91.1 fl (80-94); Mean Platelet Volume 9.9 fl (7.4-10.4); Monocytes # 0.6 K/mm3 (0.1-1.0); Monocytes % 5.6 % (1.7-9.3); Neutrophils # 8.7 K/mm3 (1.8-7.8); Neutrophils % 77.7 % (37.0-80.0); Platelet Count 232 K/mm3 (142-424); Red Blood Count 3.65 M/mm3 (4.60-6.20); Red Cell Distribution Width 15.2 % (11.5-17.5); White Blood Count 11.1 K/mm3 (4.8-10.8)
[2022-04-05 08:59] LABS: Chloride 107 mmol/L (98-107); Potassium 4.8 mmoL/L (3.5-5.1); Sodium 137 mmol/L (136-145)
[2022-04-05 09:01] LABS: Blood Urea Nitrogen 17 mg/dl (9-20); Creatinine Clearance Estimated 69 mL/min (50-200); Estimated Glomerular Filt Rate 61 ml/min (>60); GFR (African American) 74 ML/MIN (>60)
[2022-04-05 09:02] LABS: Alanine Aminotransferase 16 U/L (12-78); Albumin Level 3.8 g/dl (3.5-5.0); Albumin/Globulin Ratio 1.4 (1.1-1.8); Alkaline Phosphatase 78 U/L (38-126); Anion Gap 13.8 mEq/L (5-15); Aspartate Amino Transferase 21 U/L (17-59); Calcium 8.9 mg/dl (8.4-10.2); Carbon Dioxide 21 mmol/L (22.0-30.0); Globulin 2.7 g/dL (1.3-3.2); Glucose 90 mg/dl (74-100); Total Protein,Serum 6.5 g/dl (6.3-8.2)
[2022-04-05 09:03] LABS: Bilirubin,Total < 0.1 mg/dl (0.2-1.3)
[2022-04-05 09:47] LABS: Thyroid Stimulating Hormone 3.98 uIU/mL (0.465-4.68)
[2022-04-06 15:03] LABS: Adrenocorticotropic Hormone 21.6 pg/mL (7.2-63.3)
== END 2022-04-05 16:10 | disposition home or self-care (01) ==
LOC: INF 08:33
PROVIDERS: PCP Emergency Medicine; Visit Provider Internal Medicine Medical Oncology
DX: Z51.11 Encounter for antineoplastic chemotherapy (principal); C34.31 Malignant neoplasm of lower lobe, right bronchus or lung; Z79.899 Other long term (current) drug therapy
CPT/HCPCS: 80053; 82024; 82533; 84443; 85025; 96413; 96415; 96417; J1642; J2469; J7060; J8501; J9045; J9267; J9271

== ENCOUNTER 2022-04-26 09:11 | Outpatient (CLI) | payer MEDICARE, SELFPAY ==
[2022-04-26] VITALS (20 sets, daily range): BP systolic 123–162; BP diastolic 54–93; PULSE 69–88; RESP 16–18; TEMP 36.3; O2SAT 100; BMI 28.2
[2022-04-26 09:45] LABS: Basophils % 0.4 % (0.1-2.0); Eosinophils % 0.4 % (0.1-12.0); Hematocrit 34.8 % (42.0-52.0); Hemoglobin 11.7 g/dL (14.1-18.0); Lymphocytes # 1.7 K/mm3 (0.7-4.5); Lymphocytes % 23.5 % (10-50); Mean Corpuscular HGB Conc 33.6 g/dL (31.8-35.4); Mean Corpuscular Hemoglobin 30.5 pg (27.0-31.2); Mean Corpuscular Volume 90.6 fl (80-94); Mean Platelet Volume 8.7 fl (7.4-10.4); Monocytes # 0.5 K/mm3 (0.1-1.0); Monocytes % 6.5 % (1.7-9.3); Neutrophils % 69.2 % (37.0-80.0); Platelet Count 206 K/mm3 (142-424); Red Blood Count 3.84 M/mm3 (4.60-6.20); Red Cell Distribution Width 16.5 % (11.5-17.5); White Blood Count 7.2 K/mm3 (4.8-10.8)
[2022-04-26 09:50] LABS: Chloride 105 mmol/L (98-107); Potassium 4.5 mmoL/L (3.5-5.1); Sodium 136 mmol/L (136-145)
[2022-04-26 09:52] LABS: Alanine Aminotransferase 16 U/L (12-78); Aspartate Amino Transferase 24 U/L (17-59); Blood Urea Nitrogen 12 mg/dl (9-20); Creatinine Clearance Estimated 83 mL/min (50-200); Estimated Glomerular Filt Rate 85 ml/min (>60); GFR (African American) 102 ML/MIN (>60)
[2022-04-26 09:53] LABS: Albumin Level 4.2 g/dl (3.5-5.0); Albumin/Globulin Ratio 1.7 (1.1-1.8); Alkaline Phosphatase 62 U/L (38-126); Anion Gap 13.5 mEq/L (5-15); Bilirubin,Total 0.3 mg/dl (0.2-1.3); Calcium 8.8 mg/dl (8.4-10.2); Carbon Dioxide 22 mmol/L (22.0-30.0); Globulin 2.5 g/dL (1.3-3.2); Glucose 107 mg/dl (74-100); Total Protein,Serum 6.7 g/dl (6.3-8.2)
[2022-04-26 10:24] LABS: Thyroid Stimulating Hormone 2.26 uIU/mL (0.465-4.68)
[2022-04-27 14:08] LABS: Adrenocorticotropic Hormone 41.2 pg/mL (7.2-63.3)
== END 2022-04-26 16:05 | disposition home or self-care (01) ==
LOC: INF 09:11
PROVIDERS: PCP Emergency Medicine; Visit Provider Internal Medicine Medical Oncology
DX: Z51.11 Encounter for antineoplastic chemotherapy (principal); C34.91 Malignant neoplasm of unspecified part of right bronchus or lung; Z79.899 Other long term (current) drug therapy
CPT/HCPCS: 80053; 82024; 82533; 84443; 85025; 96413; 96415; 96417; J1642; J2469; J7060; J8501; J9045; J9267; J9271

== ENCOUNTER → 2022-05-14 08:17 | Outpatient (CLI) | payer MEDICARE, SELFPAY ==
[2022-05-14 08:09] VITALS: BMI 27.9
--- NOTE | 2022-05-14 08:22 | CT_ITS ---
FINAL REPORT TECHNIQUE: Pre-and postcontrast axial imaging of the abdomen and pelvis was obtained.This study was performed with techniques to keep radiation doses as low as reasonably achievable, (ALARA). Individualized dose reduction technique using automated exposure control or adjustment of mA and/or kV according to the patient's size were employed. CLINICAL HISTORY: LUNG CANCER. starting 4th round of chemo next week. eval mass/ any change? COMPARISON: PET-CT dated February 01, 2022 FINDINGS: There is a hypodense lesion in the medial right hepatic lobe measuring 2.7 cm that has decreased in size since the prior exam. There are no other hepatic lesions. The gallbladder is present. The spleen, adrenal glands, and pancreas are unremarkable. There is no hydronephrosis or solid renal mass. On pre-contrast imaging, no renal stones are identified. Abdominal GI tract demonstrates a large amount of stool. There is no lymphadenopathy or ascites. The pelvic organs and pelvic portions of the GI tract, including the appendix, are within normal limits. There is no lymphadenopathy or ascites. There is a lytic lesion in the lesser trochanter of the left femur. IMPRESSION: Improved hepatic metastasis. Lytic lesion in the left lesser trochanter. No acute abnormality. Reviewed, Interpreted and Dictated by Renetta Lovett MD Transcribed by Sb Hinds Authenticated and [facility]
--- NOTE | 2022-05-14 08:22 | CT_ITS ---
FINAL REPORT TECHNIQUE: Axial images through the chest were performed by computed tomography before and after the administration of IV contrast. This study was performed with techniques to keep radiation doses as low as reasonably achievable, (ALARA). Individualized dose reduction techniques using automated exposure control or adjustment of mA and/or kV according to the patient's size were employed. CLINICAL HISTORY: LUNG CANCER. starting 4th round of chemo next week. eval mass/ any change? COMPARISON: PET-CT dated February 01, 2022 FINDINGS: A right Port-A-Cath is present. There is no axillary adenopathy. There is no hilar or mediastinal adenopathy. The heart size is normal. There is no pericardial or pleural effusion. There right lower lobe mass measures 3.3 cm and was 4.1 cm. Difference may be due to slice selection. There is a left lower lobe nodule measuring 7 mm which is unchanged. There is a small nodule along the right major fissure on CT image 53 which is also stable. A subpleural left upper lobe nodule on image 42 is stable at 6 mm. Several other less than 5 mm nodules are stable. On the bone window images there are no acute findings. IMPRESSION: Right lower lobe mass and bilateral sub-centimeter pulmonary nodules, similar to recent PET-CT. Reviewed, Interpreted and Dictated by Renetta Lovett MD Transcribed by Khushbu Mckenzie Authenticated and [facility]
[2022-05-14 08:28] LABS: Chloride 105 mmol/L (98-107); Sodium 135 mmol/L (136-145)
[2022-05-14 08:29] LABS: Potassium 4.7 mmoL/L (3.5-5.1)
[2022-05-14 08:31] LABS: Alanine Aminotransferase 19 U/L (12-78); Albumin/Globulin Ratio 1.7 (1.1-1.8); Alkaline Phosphatase 52 U/L (38-126); Anion Gap 10.7 mEq/L (5-15); Aspartate Amino Transferase 19 U/L (17-59); Blood Urea Nitrogen 14 mg/dl (9-20); Carbon Dioxide 24 mmol/L (22.0-30.0); Creatinine Clearance Estimated 82 mL/min (50-200); Estimated Glomerular Filt Rate 85 ml/min (>60); GFR (African American) 102 ML/MIN (>60); Globulin 2.4 g/dL (1.3-3.2); Total Protein,Serum 6.4 g/dl (6.3-8.2)
[2022-05-14 08:32] LABS: Bilirubin,Total 0.1 mg/dl (0.2-1.3); Calcium 8.3 mg/dl (8.4-10.2); Glucose 102 mg/dl (74-100)
[2022-05-14 08:42] LABS: Basophils % 0.5 % (0.1-2.0); Eosinophils % 0.5 % (0.1-12.0); Hematocrit 31.6 % (42.0-52.0); Hemoglobin 10.6 g/dL (14.1-18.0); Lymphocytes # 1.4 K/mm3 (0.7-4.5); Lymphocytes % 31.3 % (10-50); Mean Corpuscular HGB Conc 33.6 g/dL (31.8-35.4); Mean Corpuscular Hemoglobin 30.4 pg (27.0-31.2); Mean Corpuscular Volume 90.5 fl (80-94); Mean Platelet Volume 8.3 fl (7.4-10.4); Monocytes # 0.6 K/mm3 (0.1-1.0); Monocytes % 12.4 % (1.7-9.3); Neutrophils # 2.5 K/mm3 (1.8-7.8); Neutrophils % 55.4 % (37.0-80.0); Platelet Count 149 K/mm3 (142-424); Red Blood Count 3.49 M/mm3 (4.60-6.20); Red Cell Distribution Width 18.3 % (11.5-17.5); White Blood Count 4.5 K/mm3 (4.8-10.8)
[2022-05-14 09:03] LABS: Thyroid Stimulating Hormone 2.76 uIU/mL (0.465-4.68)
[2022-05-15 16:51] LABS: Adrenocorticotropic Hormone 12.2 pg/mL (7.2-63.3)
== END ==
PROVIDERS: PCP Emergency Medicine; Visit Provider Internal Medicine Medical Oncology
DX: C34.31 Malignant neoplasm of lower lobe, right bronchus or lung (principal); Z79.899 Other long term (current) drug therapy
CPT/HCPCS: 36591; 71270; 74178; 80053; 82024; 82533; 84443; 85025; J1642; Q9967

== ENCOUNTER 2022-05-21 08:43 | Outpatient (CLI) | payer MEDICARE, SELFPAY ==
[2022-05-21] VITALS (19 sets, daily range): BP systolic 109–156; BP diastolic 58–91; PULSE 58–74; RESP 18; TEMP 36.2–36.3; O2SAT 97–99
== END 2022-05-21 15:18 | disposition home or self-care (01) ==
LOC: INF 08:43
PROVIDERS: PCP Emergency Medicine; Visit Provider Internal Medicine Medical Oncology
DX: Z51.11 Encounter for antineoplastic chemotherapy (principal); C34.31 Malignant neoplasm of lower lobe, right bronchus or lung
CPT/HCPCS: 96413; 96415; 96417; J1642; J2469; J7060; J8501; J9045; J9267; J9271

== ENCOUNTER 2022-06-14 08:26 | Outpatient (CLI) | payer MEDICARE, SELFPAY ==
[2022-06-14 08:30] VITALS: BMI 27.4
[2022-06-14 08:49] LABS: Basophils % 0.5 % (0.1-2.0); Eosinophils % 0.8 % (0.1-12.0); Hematocrit 33.1 % (42.0-52.0); Hemoglobin 11.2 g/dL (14.1-18.0); Lymphocytes # 1.5 K/mm3 (0.7-4.5); Lymphocytes % 32.2 % (10-50); Mean Corpuscular HGB Conc 33.9 g/dL (31.8-35.4); Mean Corpuscular Volume 94.2 fl (80-94); Monocytes # 0.4 K/mm3 (0.1-1.0); Monocytes % 9.2 % (1.7-9.3); Neutrophils # 2.7 K/mm3 (1.8-7.8); Neutrophils % 57.3 % (37.0-80.0); Platelet Count 146 K/mm3 (142-424); Red Blood Count 3.51 M/mm3 (4.60-6.20); Red Cell Distribution Width 19.2 % (11.5-17.5); White Blood Count 4.8 K/mm3 (4.8-10.8)
[2022-06-14 09:02] LABS: Chloride 107 mmol/L (98-107); Sodium 137 mmol/L (136-145)
[2022-06-14 09:05] LABS: Alanine Aminotransferase 26 U/L (12-78); Albumin Level 4.1 g/dl (3.5-5.0); Albumin/Globulin Ratio 1.6 (1.1-1.8); Alkaline Phosphatase 48 U/L (38-126); Aspartate Amino Transferase 24 U/L (17-59); Bilirubin,Total 0.2 mg/dl (0.2-1.3); Blood Urea Nitrogen 14 mg/dl (9-20); Carbon Dioxide 23 mmol/L (22.0-30.0); Creatinine Clearance Estimated 80 mL/min (50-200); Estimated Glomerular Filt Rate 85 ml/min (>60); GFR (African American) 102 ML/MIN (>60); Globulin 2.5 g/dL (1.3-3.2); Total Protein,Serum 6.6 g/dl (6.3-8.2)
[2022-06-14 09:06] LABS: Calcium 8.7 mg/dl (8.4-10.2); Glucose 103 mg/dl (74-100)
[2022-06-14 09:36] VITALS: BP 105/66; PULSE 72; RESP 18; TEMP 36.4; O2SAT 98
[2022-06-14 09:36] LABS: Thyroid Stimulating Hormone 1.93 uIU/mL (0.465-4.68)
[2022-06-14 10:14] VITALS: BP 115/72; PULSE 67; RESP 18; O2SAT 98
[2022-06-15 12:34] LABS: Adrenocorticotropic Hormone 36.5 pg/mL (7.2-63.3)
== END 2022-06-14 10:15 | disposition home or self-care (01) ==
LOC: INF 08:27
PROVIDERS: PCP Emergency Medicine; Visit Provider Internal Medicine Medical Oncology
DX: C34.91 Malignant neoplasm of unspecified part of right bronchus or lung (principal); Z79.899 Other long term (current) drug therapy; Z51.11 Encounter for antineoplastic chemotherapy
CPT/HCPCS: 80053; 82024; 82533; 84443; 85025; 96413; J1642; J9271

== ENCOUNTER 2022-07-05 08:08 | Outpatient (CLI) | payer MEDICARE, SELFPAY ==
[2022-07-05 08:11] VITALS: BMI 27.6
[2022-07-05 08:34] LABS: Basophils # 0.1 K/mm3 (0-0.2); Basophils % 0.7 % (0.1-2.0); Chloride 107 mmol/L (98-107); Eosinophils # 0.1 K/mm3 (0.0-0.4); Eosinophils % 1.8 % (0.1-12.0); Hematocrit 36.4 % (42.0-52.0); Hemoglobin 12.2 g/dL (14.1-18.0); Lymphocytes # 1.7 K/mm3 (0.7-4.5); Lymphocytes % 22.7 % (10-50); Mean Corpuscular HGB Conc 33.6 g/dL (31.8-35.4); Mean Corpuscular Hemoglobin 32.7 pg (27.0-31.2); Mean Corpuscular Volume 97.5 fl (80-94); Mean Platelet Volume 9.2 fl (7.4-10.4); Monocytes # 0.7 K/mm3 (0.1-1.0); Monocytes % 8.8 % (1.7-9.3); Neutrophils # 5.1 K/mm3 (1.8-7.8); Platelet Count 170 K/mm3 (142-424); Potassium 4.5 mmoL/L (3.5-5.1); Red Blood Count 3.73 M/mm3 (4.60-6.20); Red Cell Distribution Width 17.2 % (11.5-17.5); Sodium 138 mmol/L (136-145); White Blood Count 7.7 K/mm3 (4.8-10.8)
[2022-07-05 08:37] LABS: Alanine Aminotransferase 21 U/L (12-78); Albumin Level 4.2 g/dl (3.5-5.0); Albumin/Globulin Ratio 1.6 (1.1-1.8); Alkaline Phosphatase 43 U/L (38-126); Anion Gap 10.5 mEq/L (5-15); Aspartate Amino Transferase 22 U/L (17-59); Bilirubin,Total 0.2 mg/dl (0.2-1.3); Blood Urea Nitrogen 19 mg/dl (9-20); Carbon Dioxide 25 mmol/L (22.0-30.0); Creatinine Clearance Estimated 81 mL/min (50-200); Estimated Glomerular Filt Rate 85 ml/min (>60); GFR (African American) 102 ML/MIN (>60); Globulin 2.6 g/dL (1.3-3.2); Total Protein,Serum 6.8 g/dl (6.3-8.2)
[2022-07-05 08:38] LABS: Calcium 8.8 mg/dl (8.4-10.2); Glucose 105 mg/dl (74-100)
[2022-07-05 09:50] VITALS: BP 145/70; PULSE 74; RESP 18; TEMP 36.4; O2SAT 99
[2022-07-05 10:15] VITALS: BP 124/71; PULSE 60; RESP 18; O2SAT 99
[2022-07-05 10:43] VITALS: BP 119/71; PULSE 62; RESP 18; O2SAT 99
[2022-07-06 15:48] LABS: Adrenocorticotropic Hormone 27.4 pg/mL (7.2-63.3)
== END 2022-07-05 10:43 | disposition home or self-care (01) ==
LOC: INF 08:09
PROVIDERS: PCP Emergency Medicine; Visit Provider Internal Medicine Medical Oncology
DX: Z51.11 Encounter for antineoplastic chemotherapy (principal); C34.30 Malignant neoplasm of lower lobe, unspecified bronchus or lung; Z79.899 Other long term (current) drug therapy
CPT/HCPCS: 80053; 82024; 82533; 84443; 85025; 96413; J1642; J9271

== ENCOUNTER 2022-07-19 13:39 | Outpatient (CLI) | payer MEDICARE, SELFPAY ==
[2022-07-19 13:48] VITALS: BMI 27.6
[2022-07-19 14:14] LABS: Blood Urea Nitrogen 18 mg/dl (9-20); Creatinine Clearance Estimated 81 mL/min (50-200); Estimated Glomerular Filt Rate 85 ml/min (>60); GFR (African American) 102 ML/MIN (>60)
== END 2022-07-19 13:59 | disposition home or self-care (01) ==
LOC: INF 13:42
PROVIDERS: Internal Medicine Medical Oncology; PCP Emergency Medicine; Visit Provider Emergency Medicine
DX: Z45.2 Encounter for adjustment and management of vascular access device (principal); C34.90 Malignant neoplasm of unspecified part of unspecified bronchus or lung
CPT/HCPCS: 36591; 82565; 84520; J1642

== ENCOUNTER → 2022-07-20 08:18 | Outpatient (CLI) | payer MEDICARE, SELFPAY ==
--- NOTE | 2022-07-20 08:23 | CT_ITS ---
FINAL REPORT TECHNIQUE: After the administration of oral and intravenous contrast, axial images were obtained through the abdomen and pelvis by computed tomography. The study was performed with techniques to keep radiation dose as low as reasonably achievable, (ALARA). Individual dose reduction techniques using automated exposure control or adjustment of mA and/or kV according to the patient's size were employed. CLINICAL HISTORY: LUNG CANCER COMPARISON: 05/14/2022 FINDINGS: Abdomen: There is a 1.6 cm low-attenuation lesion in the medial right lobe of the liver which is decreased in size consistent with metastases. No other hepatic lesion is identified. The spleen is unremarkable. The adrenals are normal. The pancreas is unremarkable. The kidneys enhance appropriately. The aorta is normal in caliber. There is no free fluid or adenopathy. Pelvis: The appendix is unremarkable. Streak artifact is seen from left hip prosthesis. The left lesser trochanter is not included in the field of view. The urinary bladder is unremarkable. There is no free fluid or adenopathy. IMPRESSION: Improved hepatic metastases. No new lesions identified. Reviewed, Interpreted and Dictated by Teddy Marx MD Transcribed by Brigette Bernard Authenticated and [facility]
--- NOTE | 2022-07-20 08:30 | CT_ITS ---
FINAL REPORT TECHNIQUE: After the administration of intravenous contrast, axial images through the chest were performed by computed tomography.This study was performed with techniques to keep radiation doses as low as reasonably achievable, (ALARA). Individualized dose reduction techniques using automated exposure control or adjustment of mA and/or kV according to the patient''s size were employed. CLINICAL HISTORY: LUNG CANCER COMPARISON: 05/14/2022 FINDINGS: The mediastinal vasculature is adequately opacified. There is no evidence of mediastinal mass or adenopathy. There is no pericardial or pleural effusion. There is a spiculated mass in the right lower lobe measuring 3.2 x 2.4 cm, slightly larger than previous. Scattered small nodules are seen, largest in the right lower lobe measures 7 mm in greatest dimension. This is best seen on image 51 of series 4. IMPRESSION: Slight interval increase in the dominant right lower lobe lung mass. Small stable pulmonary nodules, largest in the right lower lobe are favored to represent intrapulmonary metastases. Reviewed, Interpreted and Dictated by Teddy Marx MD Transcribed by Brigette Bernard Authenticated and [facility]
== END ==
PROVIDERS: PCP Emergency Medicine; Visit Provider Internal Medicine Medical Oncology
DX: C34.31 Malignant neoplasm of lower lobe, right bronchus or lung (principal)
CPT/HCPCS: 71260; 74177; J1642; Q9967

== ENCOUNTER 2022-07-30 09:04 | Outpatient (CLI) | payer MEDICARE, SELFPAY ==
[2022-07-30 09:07] VITALS: BMI 28.2
[2022-07-30 09:37] LABS: Chloride 105 mmol/L (98-107)
[2022-07-30 09:38] LABS: Potassium 4.3 mmoL/L (3.5-5.1)
[2022-07-30 09:39] LABS: Basophils % 0.2 % (0.1-2.0); Eosinophils # 0.2 K/mm3 (0.0-0.4); Eosinophils % 1.5 % (0.1-12.0); Hematocrit 38.5 % (42.0-52.0); Hemoglobin 12.5 g/dL (14.1-18.0); Lymphocytes % 18.1 % (10-50); Mean Corpuscular HGB Conc 32.5 g/dL (31.8-35.4); Mean Corpuscular Hemoglobin 31.9 pg (27.0-31.2); Mean Corpuscular Volume 98.1 fl (80-94); Mean Platelet Volume 8.5 fl (7.4-10.4); Monocytes # 0.8 K/mm3 (0.1-1.0); Monocytes % 6.7 % (1.7-9.3); Neutrophils # 8.2 K/mm3 (1.8-7.8); Neutrophils % 73.5 % (37.0-80.0); Platelet Count 198 K/mm3 (142-424); Red Blood Count 3.92 M/mm3 (4.60-6.20); Red Cell Distribution Width 14.6 % (11.5-17.5); White Blood Count 11.1 K/mm3 (4.8-10.8)
[2022-07-30 09:40] LABS: Alanine Aminotransferase 21 U/L (12-78); Albumin Level 4.6 g/dl (3.5-5.0); Albumin/Globulin Ratio 1.5 (1.1-1.8); Alkaline Phosphatase 49 U/L (38-126); Aspartate Amino Transferase 22 U/L (17-59); Bilirubin,Total 0.4 mg/dl (0.2-1.3); Blood Urea Nitrogen 14 mg/dl (9-20); Carbon Dioxide 25 mmol/L (22.0-30.0); Creatinine Clearance Estimated 83 mL/min (50-200); Estimated Glomerular Filt Rate 85 ml/min (>60); GFR (African American) 102 ML/MIN (>60); Total Protein,Serum 7.6 g/dl (6.3-8.2)
[2022-07-30 09:41] LABS: Glucose 111 mg/dl (74-100)
[2022-07-30 10:46] LABS: Anion Gap 12.3 mEq/L (5-15); Sodium 138 mmol/L (136-145)
--- NOTE | 2022-07-30 11:05 | PC.NURSE ---
1105-chronometer assembler here talking with pt.
[2022-07-30 11:08] VITALS: BP 148/72; PULSE 69; RESP 18; TEMP 36.8; O2SAT 96
[2022-07-30 11:25] VITALS: BP 132/83; PULSE 75; RESP 18
[2022-07-30 12:00] VITALS: BP 119/78; PULSE 56; RESP 18
--- NOTE | 2022-07-30 12:35 | DIET.NUTRFU ---
RD saw patient today during infusion, he reports he has lost 4# in last 30 days. Claims his appetite is good and he is drinking 2 boost/day. They were looking for coupons- will mail 2 ensure coupons they can use. Also provided multiple handouts on increasing calorie intake. Some homemade shake recipes and caloric needs. Reviewed his daily intake- starts around 5am with breakfast of eggs and biscuit/gravy or oatmeal, lunch around 12-sandwich then dinner around 6pm full dinner with boost at 5am and 7pm. Encouraged him to add high calorie/protein snacks in at 10am and 2pm consisting of 300kcal each. He reports he drinks alot of flavored water and couple cups of coffee. No soda and no EtOH. Reviewed suggestions for snacks and handouts listed some also. Email them coupons and contact information.
[2022-07-31 15:54] LABS: Adrenocorticotropic Hormone 24.6 pg/mL (7.2-63.3)
== END 2022-07-30 12:00 | disposition home or self-care (01) ==
LOC: INF 09:05
PROVIDERS: PCP Emergency Medicine; Visit Provider Internal Medicine Medical Oncology
DX: Z51.11 Encounter for antineoplastic chemotherapy (principal); C34.31 Malignant neoplasm of lower lobe, right bronchus or lung; Z79.899 Other long term (current) drug therapy
CPT/HCPCS: 80053; 82024; 82533; 84443; 85025; 96413; J1642; J9271

== ENCOUNTER 2022-08-23 08:43 | Outpatient (CLI) | payer MEDICARE, SELFPAY ==
[2022-08-23 08:46] VITALS: BMI 27.2
[2022-08-23 09:14] LABS: Basophils % 0.2 % (0.1-2.0); Eosinophils # 0.2 K/mm3 (0.0-0.4); Eosinophils % 1.6 % (0.1-12.0); Hematocrit 39.8 % (42.0-52.0); Hemoglobin 12.8 g/dL (14.1-18.0); Lymphocytes # 1.1 K/mm3 (0.7-4.5); Lymphocytes % 10.9 % (10-50); Mean Corpuscular HGB Conc 32.2 g/dL (31.8-35.4); Mean Corpuscular Hemoglobin 31.7 pg (27.0-31.2); Mean Corpuscular Volume 98.6 fl (80-94); Mean Platelet Volume 8.6 fl (7.4-10.4); Monocytes # 0.4 K/mm3 (0.1-1.0); Monocytes % 3.9 % (1.7-9.3); Neutrophils # 8.2 K/mm3 (1.8-7.8); Neutrophils % 83.4 % (37.0-80.0); Platelet Count 162 K/mm3 (142-424); Red Blood Count 4.03 M/mm3 (4.60-6.20); Red Cell Distribution Width 13.6 % (11.5-17.5); White Blood Count 9.8 K/mm3 (4.8-10.8)
[2022-08-23 09:36] LABS: Alanine Aminotransferase 20 U/L (12-78); Albumin Level 4.2 g/dl (3.5-5.0); Albumin/Globulin Ratio 1.5 (1.1-1.8); Alkaline Phosphatase 57 U/L (38-126); Anion Gap 13.8 mEq/L (5-15); Aspartate Amino Transferase 22 U/L (17-59); Bilirubin,Total 0.4 mg/dl (0.2-1.3); Blood Urea Nitrogen 15 mg/dl (9-20); Calcium 8.9 mg/dl (8.4-10.2); Carbon Dioxide 23 mmol/L (22.0-30.0); Chloride 106 mmol/L (98-107); Creatinine Clearance Estimated 80 mL/min (50-200); Estimated Glomerular Filt Rate 97 ml/min (>60); GFR (African American) 117 ML/MIN (>60); Globulin 2.8 g/dL (1.3-3.2); Glucose 188 mg/dl (74-100); Potassium 3.8 mmoL/L (3.5-5.1); Sodium 139 mmol/L (136-145)
[2022-08-23 09:53] VITALS: BP 137/80; PULSE 76; RESP 18; TEMP 36.7; O2SAT 98
[2022-08-23 10:23] VITALS: BP 125/63; PULSE 74; RESP 18; O2SAT 98
[2022-08-23 10:35] VITALS: BP 121/69; PULSE 78; RESP 18; O2SAT 98
[2022-08-23 12:11] LABS: Thyroid Stimulating Hormone 1.94 uIU/mL (0.465-4.68)
[2022-08-24 15:06] LABS: Adrenocorticotropic Hormone 21.6 pg/mL (7.2-63.3)
== END 2022-08-23 10:35 | disposition home or self-care (01) ==
LOC: INF 08:44
PROVIDERS: PCP Emergency Medicine; Visit Provider Internal Medicine Medical Oncology
DX: Z51.11 Encounter for antineoplastic chemotherapy (principal); C34.91 Malignant neoplasm of unspecified part of right bronchus or lung; C79.9 Secondary malignant neoplasm of unspecified site; R91.8 Other nonspecific abnormal finding of lung field; Z79.899 Other long term (current) drug therapy; Z45.2 Encounter for adjustment and management of vascular access device
CPT/HCPCS: 80053; 82024; 82533; 84443; 85025; 96413; J1642; J9271

== ENCOUNTER → 2022-09-13 08:13 | Outpatient (CLI) | payer MEDICARE, SELFPAY ==
[2022-09-13 08:14] VITALS: BMI 26.3
[2022-09-13 08:34] LABS: Basophils % 0.1 % (0.1-2.0); Eosinophils # 0.1 K/mm3 (0.0-0.4); Eosinophils % 0.6 % (0.1-12.0); Hematocrit 38.6 % (42.0-52.0); Hemoglobin 12.4 g/dL (14.1-18.0); Lymphocytes # 2.5 K/mm3 (0.7-4.5); Lymphocytes % 15.4 % (10-50); Mean Corpuscular HGB Conc 32.2 g/dL (31.8-35.4); Mean Corpuscular Hemoglobin 31.4 pg (27.0-31.2); Mean Corpuscular Volume 97.5 fl (80-94); Mean Platelet Volume 8.3 fl (7.4-10.4); Monocytes # 1.1 K/mm3 (0.1-1.0); Monocytes % 6.8 % (1.7-9.3); Neutrophils # 12.6 K/mm3 (1.8-7.8); Neutrophils % 77.1 % (37.0-80.0); Platelet Count 195 K/mm3 (142-424); Red Blood Count 3.96 M/mm3 (4.60-6.20); Red Cell Distribution Width 13.8 % (11.5-17.5); White Blood Count 16.4 K/mm3 (4.8-10.8)
[2022-09-13 08:35] LABS: MANUAL DIFFERENTIAL MANUAL DIFFERENTIAL (MANUAL DIFF)
[2022-09-13 08:40] LABS: Alanine Aminotransferase 35 U/L (12-78); Albumin Level 3.9 g/dl (3.5-5.0); Albumin/Globulin Ratio 1.6 (1.1-1.8); Alkaline Phosphatase 43 U/L (38-126); Aspartate Amino Transferase 26 U/L (17-59); Blood Urea Nitrogen 19 mg/dl (9-20); Calcium 8.6 mg/dl (8.4-10.2); Carbon Dioxide 27 mmol/L (22.0-30.0); Chloride 100 mmol/L (98-107); Creatinine Clearance Estimated 77 mL/min (50-200); Estimated Glomerular Filt Rate 97 ml/min (>60); GFR (African American) 117 ML/MIN (>60); Globulin 2.4 g/dL (1.3-3.2); Glucose 130 mg/dl (74-100); Sodium 137 mmol/L (136-145); Total Protein,Serum 6.3 g/dl (6.3-8.2)
[2022-09-13 08:43] LABS: Bilirubin,Total 0.1 mg/dl (0.2-1.3); Lymphocytes % 18 % (10-50); Monocytes % 3 % (2-9); Neutrophils % 79 % (42-76); Platelet Estimate Normal; RBC Morphology Normal; Total Cells Counted 100
[2022-09-13 09:10] LABS: Thyroid Stimulating Hormone 3.22 uIU/mL (0.465-4.68)
[2022-09-14 15:04] LABS: Adrenocorticotropic Hormone 3.8 pg/mL (7.2-63.3)
== END ==
PROVIDERS: Visit Provider Internal Medicine Medical Oncology
DX: C34.90 Malignant neoplasm of unspecified part of unspecified bronchus or lung (principal); Z79.899 Other long term (current) drug therapy
CPT/HCPCS: 36591; 80053; 82024; 82533; 84443; 85007; 85025; J1642

== ENCOUNTER 2022-10-01 08:31 | Outpatient (CLI) | payer MEDICARE, SELFPAY ==
[2022-10-01 08:38] VITALS: BMI 27.6
[2022-10-01 09:05] LABS: Basophils % 0.2 % (0.1-2.0); Chloride 104 mmol/L (98-107); Eosinophils # 0.4 K/mm3 (0.0-0.4); Hematocrit 37.1 % (42.0-52.0); Lymphocytes # 1.5 K/mm3 (0.7-4.5); Lymphocytes % 17.1 % (10-50); Mean Corpuscular HGB Conc 32.4 g/dL (31.8-35.4); Mean Corpuscular Hemoglobin 30.9 pg (27.0-31.2); Mean Corpuscular Volume 95.4 fl (80-94); Mean Platelet Volume 8.7 fl (7.4-10.4); Monocytes # 0.7 K/mm3 (0.1-1.0); Monocytes % 8.3 % (1.7-9.3); Neutrophils % 69.4 % (37.0-80.0); Platelet Count 153 K/mm3 (142-424); Potassium 3.6 mmoL/L (3.5-5.1); Red Blood Count 3.88 M/mm3 (4.60-6.20); Sodium 139 mmol/L (136-145); White Blood Count 8.6 K/mm3 (4.8-10.8)
[2022-10-01 09:08] LABS: Alanine Aminotransferase 23 U/L (12-78); Albumin Level 3.8 g/dl (3.5-5.0); Albumin/Globulin Ratio 1.6 (1.1-1.8); Alkaline Phosphatase 40 U/L (38-126); Anion Gap 10.6 mEq/L (5-15); Aspartate Amino Transferase 20 U/L (17-59); Blood Urea Nitrogen 12 mg/dl (9-20); Calcium 8.8 mg/dl (8.4-10.2); Carbon Dioxide 28 mmol/L (22.0-30.0); Creatinine Clearance Estimated 81 mL/min (50-200); Estimated Glomerular Filt Rate 97 ml/min (>60); GFR (African American) 117 ML/MIN (>60); Globulin 2.4 g/dL (1.3-3.2); Glucose 96 mg/dl (74-100); Total Protein,Serum 6.2 g/dl (6.3-8.2)
[2022-10-01 09:09] LABS: Bilirubin,Total 0.1 mg/dl (0.2-1.3)
--- NOTE | 2022-10-01 09:35 | PC.WOUNDNOTE ---
0935-pt return from md appointment;collected extra labs;flushed right chest pac with ns;capped with heparin;deaccessed pt to return next week.
[2022-10-01 09:39] LABS: Thyroid Stimulating Hormone 2.63 uIU/mL (0.465-4.68)
[2022-10-01 09:57] LABS: Iron 41 ug/dL (49-181)
[2022-10-01 10:06] LABS: Total Iron Binding Capacity 277 ug/dL (261-462)
[2022-10-01 10:34] LABS: Ferritin 12.7 ng/ml (17.9-464)
[2022-10-01 11:04] LABS: Vitamin B12 494 pg/mL (239-931)
[2022-10-02 13:11] LABS: Adrenocorticotropic Hormone 12.3 pg/mL (7.2-63.3)
== END 2022-10-01 09:39 | disposition home or self-care (01) ==
PROVIDERS: PCP Emergency Medicine; Visit Provider Internal Medicine Medical Oncology
DX: C34.90 Malignant neoplasm of unspecified part of unspecified bronchus or lung (principal); Z79.899 Other long term (current) drug therapy; Z45.2 Encounter for adjustment and management of vascular access device
CPT/HCPCS: 36591; 80053; 82024; 82533; 82607; 82728; 82746; 83540; 83550; 84443; 85025; J1642

== ENCOUNTER 2022-10-09 07:58 | Outpatient (CLI) | payer MEDICARE, SELFPAY ==
--- NOTE | 2022-10-09 08:07 | CT_ITS ---
FINAL REPORT CLINICAL HISTORY: LUNG CANCER,METASTATIC CANCER COMPARISON: June 2022 FINDINGS: CT OF THE ABDOMEN AND PELVIS WITH CONTRAST Axial CT images of the abdomen and pelvis were obtained after the administration of oral and iv contrast. Coronal reformatted images were also obtained and reviewed.This study was performed with techniques to keep radiation doses as low as reasonably achievable (ALARA). Individualized dose reduction techniques using automated exposure control or adjustment of mA and/or kV according to the patient's size were employed. Abdomen: The heart is normal in size. A 16 mm medial right hepatic lobe mass is stable. There is a 13 mm low-attenuation focus in the anterior aspect of the medial segment of the left hepatic lobe of uncertain etiology that may represent focal fatty infiltration. The spleen is unremarkable. No adrenal mass is present. Again seen is a 6 mm probable lipoma in the pancreas. The kidneys are normal, without evidence of mass or hydronephrosis. The aorta is normal in caliber. There is moderate vascular calcification. There is no free fluid or adenopathy. Pelvis: The appendix is normal. The urinary bladder is unremarkable. No inflammatory process is seen. There is no evidence of mass or adenopathy. There is diverticulosis of the sigmoid colon. There is no evidence of bowel obstruction. IMPRESSION: Stable right hepatic mass. Low-attenuation focus in the anterior medial left hepatic lobe of uncertain etiology may represent focal fatty filtration. Reviewed, Interpreted and Dictated by Rishi Booker III, MD Transcribed by Sb Hinds Authenticated and . [facility]
--- NOTE | 2022-10-09 08:07 | CT_ITS ---
FINAL REPORT CLINICAL HISTORY: LUNG CANCER,METASTATIC CANCER COMPARISON: June 2022 FINDINGS: Axial CT images of the chest were obtained with contrast. Coronal reformatted images were also obtained. This study was performed with techniques to keep radiation doses as low as reasonably achievable, (ALARA). Individualized dose reduction techniques using automated exposure control or adjustment of mA and/or KV according to the patient''''s size were employed. There has been prior sternotomy. A right subclavian chest port is present. There are multiple borderline sized mediastinal lymph nodes. No axillary mass or adenopathy is identified. There is bronchial wall thickening consistent with bronchitis. A right lower lobe mass measuring 42 x 34 mm previously measured 32 x 24 mm. There is now a central low-attenuation and cavitation consistent with central necrosis. A 9 mm left lower lobe nodule previously measured 7 mm worrisome for pulmonary metastasis. There are mild changes of emphysema with mild scarring. There are several other less than 5 mm bilateral pulmonary nodules. There is mild to moderate stenosis of the proximal left subclavian artery. IMPRESSION: Worsening pulmonary metastasis. Reviewed, Interpreted and Dictated by Rishi Booker III, MD Transcribed by Sb Hinds Authenticated and [facility]
== END 2022-10-09 08:45 | disposition home or self-care (01) ==
PROVIDERS: PCP Emergency Medicine; Visit Provider Internal Medicine Medical Oncology
DX: C34.31 Malignant neoplasm of lower lobe, right bronchus or lung (principal); C79.9 Secondary malignant neoplasm of unspecified site; Z45.2 Encounter for adjustment and management of vascular access device
CPT/HCPCS: 71260; 74177; J1642; Q9967

== ENCOUNTER 2022-10-12 09:15 | Outpatient (CLI) | payer MEDICARE, SELFPAY ==
[2022-10-12 09:21] VITALS: BMI 27.2
== END 2022-10-12 10:43 | disposition home or self-care (01) ==
LOC: INF 09:16
PROVIDERS: PCP Emergency Medicine; Visit Provider Internal Medicine Medical Oncology
DX: Z45.2 Encounter for adjustment and management of vascular access device (principal); C34.31 Malignant neoplasm of lower lobe, right bronchus or lung; C79.9 Secondary malignant neoplasm of unspecified site
CPT/HCPCS: 36591; J1642

== ENCOUNTER 2022-10-18 08:16 | Outpatient (CLI) | payer MEDICARE, SELFPAY ==
[2022-10-18] VITALS (8 sets, daily range): BP systolic 97–121; BP diastolic 51–64; PULSE 58–67; RESP 18; TEMP 36.5; O2SAT 97–98; BMI 26.4
[2022-10-18 08:48] LABS: Basophils % 0.2 % (0.1-2.0); Eosinophils # 0.2 K/mm3 (0.0-0.4); Eosinophils % 2.5 % (0.1-12.0); Hematocrit 39.1 % (42.0-52.0); Hemoglobin 12.7 g/dL (14.1-18.0); Lymphocytes # 1.2 K/mm3 (0.7-4.5); Lymphocytes % 13.8 % (10-50); Mean Corpuscular HGB Conc 32.5 g/dL (31.8-35.4); Mean Corpuscular Hemoglobin 30.5 pg (27.0-31.2); Mean Corpuscular Volume 93.6 fl (80-94); Mean Platelet Volume 8.9 fl (7.4-10.4); Monocytes # 0.9 K/mm3 (0.1-1.0); Monocytes % 9.8 % (1.7-9.3); Neutrophils # 6.4 K/mm3 (1.8-7.8); Neutrophils % 73.6 % (37.0-80.0); Platelet Count 187 K/mm3 (142-424); Red Blood Count 4.18 M/mm3 (4.60-6.20); Red Cell Distribution Width 13.7 % (11.5-17.5); White Blood Count 8.7 K/mm3 (4.8-10.8)
[2022-10-18 08:56] LABS: Chloride 104 mmol/L (98-107); Sodium 139 mmol/L (136-145)
[2022-10-18 08:59] LABS: Alanine Aminotransferase 20 U/L (12-78); Albumin Level 4.1 g/dl (3.5-5.0); Albumin/Globulin Ratio 1.5 (1.1-1.8); Alkaline Phosphatase 42 U/L (38-126); Aspartate Amino Transferase 23 U/L (17-59); Blood Urea Nitrogen 10 mg/dl (9-20); Carbon Dioxide 26 mmol/L (22.0-30.0); Creatinine Clearance Estimated 77 mL/min (50-200); Estimated Glomerular Filt Rate 85 ml/min (>60); GFR (African American) 102 ML/MIN (>60); Globulin 2.8 g/dL (1.3-3.2); Total Protein,Serum 6.9 g/dl (6.3-8.2)
[2022-10-18 09:00] LABS: Calcium 8.9 mg/dl (8.4-10.2); Glucose 117 mg/dl (74-100)
[2022-10-18 09:03] LABS: Bilirubin,Total 0.1 mg/dl (0.2-1.3)
== END 2022-10-18 11:00 | disposition home or self-care (01) ==
LOC: INF 08:19
PROVIDERS: PCP Emergency Medicine; Visit Provider Internal Medicine Medical Oncology
DX: R91.8 Other nonspecific abnormal finding of lung field (principal); C34.31 Malignant neoplasm of lower lobe, right bronchus or lung; C79.9 Secondary malignant neoplasm of unspecified site; D50.9 Iron deficiency anemia, unspecified
CPT/HCPCS: 80053; 85025; 96367; 96413; J1642; J1756; J2405; J9171

== ENCOUNTER 2022-10-26 09:01 | Outpatient (CLI) | payer MEDICARE, SELFPAY ==
[2022-10-26 09:04] VITALS: BMI 25.8
[2022-10-26 09:12] VITALS: BP 115/67; PULSE 76
[2022-10-26 09:22] LABS: Basophils % 0.3 % (0.1-2.0); Eosinophils # 0.1 K/mm3 (0.0-0.4); Eosinophils % 3.8 % (0.1-12.0); Hematocrit 41.9 % (42.0-52.0); Hemoglobin 13.4 g/dL (14.1-18.0); Lymphocytes # 0.9 K/mm3 (0.7-4.5); Mean Corpuscular Volume 93.8 fl (80-94); Mean Platelet Volume 9.1 fl (7.4-10.4); Monocytes # 0.3 K/mm3 (0.1-1.0); Monocytes % 11.8 % (1.7-9.3); Neutrophils # 1.3 K/mm3 (1.8-7.8); Platelet Count 173 K/mm3 (142-424); Red Blood Count 4.46 M/mm3 (4.60-6.20); Red Cell Distribution Width 13.7 % (11.5-17.5); White Blood Count 2.6 K/mm3 (4.8-10.8)
[2022-10-26 09:30] LABS: Chloride 100 mmol/L (98-107); Sodium 134 mmol/L (136-145)
[2022-10-26 09:31] LABS: Potassium 3.8 mmoL/L (3.5-5.1)
[2022-10-26 09:33] LABS: Alanine Aminotransferase 76 U/L (12-78); Albumin Level 3.5 g/dl (3.5-5.0); Albumin/Globulin Ratio 1.4 (1.1-1.8); Alkaline Phosphatase 40 U/L (38-126); Anion Gap 9.8 mEq/L (5-15); Aspartate Amino Transferase 31 U/L (17-59); Bilirubin,Total 0.3 mg/dl (0.2-1.3); Blood Urea Nitrogen 19 mg/dl (9-20); Calcium 8.2 mg/dl (8.4-10.2); Carbon Dioxide 28 mmol/L (22.0-30.0); Creatinine Clearance Estimated 76 mL/min (50-200); Estimated Glomerular Filt Rate 97 ml/min (>60); GFR (African American) 117 ML/MIN (>60); Globulin 2.5 g/dL (1.3-3.2); Glucose 106 mg/dl (74-100)
[2022-10-26 10:15] VITALS: BP 112/71; PULSE 72; RESP 18; TEMP 36.9; O2SAT 95
[2022-10-26 10:45] VITALS: BP 121/68; PULSE 70
[2022-10-26 11:15] VITALS: BP 122/65; PULSE 69
== END 2022-10-26 11:30 | disposition home or self-care (01) ==
LOC: INF 09:02
PROVIDERS: PCP Emergency Medicine; Visit Provider Internal Medicine Medical Oncology
DX: J98.4 Other disorders of lung (principal); R91.8 Other nonspecific abnormal finding of lung field; C34.31 Malignant neoplasm of lower lobe, right bronchus or lung; C79.9 Secondary malignant neoplasm of unspecified site; D50.9 Iron deficiency anemia, unspecified; Z45.2 Encounter for adjustment and management of vascular access device
CPT/HCPCS: 80053; 85025; 96365; J1642; J1756; J2405

== ENCOUNTER 2022-11-01 09:30 | Outpatient (CLI) | payer MEDICARE, SELFPAY ==
[2022-11-01 09:54] VITALS: BP 97/63; PULSE 60; RESP 18; TEMP 36.6; O2SAT 96
[2022-11-01 10:45] VITALS: BP 101/62; PULSE 62; RESP 18; O2SAT 97
== END 2022-11-01 10:45 | disposition home or self-care (01) ==
LOC: INF 09:30
PROVIDERS: PCP Emergency Medicine; Visit Provider Internal Medicine Medical Oncology
DX: C34.31 Malignant neoplasm of lower lobe, right bronchus or lung (principal)
CPT/HCPCS: 96365; J1642; J1756

== ENCOUNTER 2022-11-08 10:35 | Outpatient (CLI) | payer MEDICARE, SELFPAY ==
[2022-11-08 10:39] VITALS: BMI 26.4
[2022-11-08 10:57] LABS: Basophils % 0.1 % (0.1-2.0); Eosinophils # 0.1 K/mm3 (0.0-0.4); Hematocrit 37.9 % (42.0-52.0); Lymphocytes # 0.9 K/mm3 (0.7-4.5); Lymphocytes % 12.1 % (10-50); Mean Corpuscular HGB Conc 31.6 g/dL (31.8-35.4); Mean Corpuscular Hemoglobin 29.6 pg (27.0-31.2); Mean Corpuscular Volume 93.6 fl (80-94); Mean Platelet Volume 9.1 fl (7.4-10.4); Monocytes # 0.5 K/mm3 (0.1-1.0); Monocytes % 6.5 % (1.7-9.3); Neutrophils # 5.9 K/mm3 (1.8-7.8); Neutrophils % 80.3 % (37.0-80.0); Platelet Count 167 K/mm3 (142-424); Red Blood Count 4.05 M/mm3 (4.60-6.20); Red Cell Distribution Width 14.8 % (11.5-17.5); White Blood Count 7.3 K/mm3 (4.8-10.8)
[2022-11-08 11:14] LABS: Alanine Aminotransferase 20 U/L (12-78); Albumin/Globulin Ratio 1.4 (1.1-1.8); Alkaline Phosphatase 48 U/L (38-126); Anion Gap 9.1 mEq/L (5-15); Aspartate Amino Transferase 20 U/L (17-59); Bilirubin,Total 0.2 mg/dl (0.2-1.3); Blood Urea Nitrogen 12 mg/dl (9-20); Calcium 9.2 mg/dl (8.4-10.2); Carbon Dioxide 25 mmol/L (22.0-30.0); Chloride 111 mmol/L (98-107); Creatinine Clearance Estimated 77 mL/min (50-200); Estimated Glomerular Filt Rate 75 ml/min (>60); GFR (African American) 91 ML/MIN (>60); Globulin 2.9 g/dL (1.3-3.2); Glucose 108 mg/dl (74-100); Potassium 4.1 mmoL/L (3.5-5.1); Sodium 141 mmol/L (136-145); Total Protein,Serum 6.9 g/dl (6.3-8.2)
[2022-11-08 11:50] VITALS: BP 141/65; PULSE 51; RESP 18; TEMP 36.4; O2SAT 98
[2022-11-08 12:11] VITALS: BP 110/60; PULSE 50; RESP 18; O2SAT 98
[2022-11-08 12:48] VITALS: BP 141/90; PULSE 56; RESP 18; O2SAT 97
[2022-11-08 13:18] VITALS: BP 128/77; PULSE 54; RESP 18; O2SAT 97
[2022-11-08 14:00] VITALS: BP 138/76; PULSE 51; RESP 18; O2SAT 98
== END 2022-11-08 14:00 | disposition home or self-care (01) ==
PROVIDERS: PCP Emergency Medicine; Visit Provider Internal Medicine Medical Oncology
DX: R91.8 Other nonspecific abnormal finding of lung field (principal); C34.31 Malignant neoplasm of lower lobe, right bronchus or lung; D50.9 Iron deficiency anemia, unspecified
CPT/HCPCS: 80053; 85025; 96367; 96413; J1642; J1756; J2405; J9171

== ENCOUNTER 2022-11-15 11:47 | Outpatient (CLI) | payer MEDICARE, SELFPAY ==
[2022-11-15 12:00] VITALS: BP 127/74; PULSE 68; RESP 18; TEMP 37.1; O2SAT 99
[2022-11-15 12:15] VITALS: BMI 26.1
[2022-11-15 12:30] VITALS: BP 144/74; PULSE 71
[2022-11-15 12:47] VITALS: BP 132/70; PULSE 69
[2022-11-15 13:19] LABS: Chloride 100 mmol/L (98-107)
[2022-11-15 13:20] VITALS: BP 141/68; PULSE 75
[2022-11-15 13:20] LABS: Potassium 4.5 mmoL/L (3.5-5.1); Sodium 132 mmol/L (136-145)
[2022-11-15 13:22] LABS: Alanine Aminotransferase 64 U/L (12-78); Alkaline Phosphatase 43 U/L (38-126); Aspartate Amino Transferase 32 U/L (17-59); Bilirubin,Total 0.5 mg/dl (0.2-1.3); Blood Urea Nitrogen 23 mg/dl (9-20); Creatinine Clearance Estimated 77 mL/min (50-200); Estimated Glomerular Filt Rate 113 ml/min (>60); GFR (African American) 137 ML/MIN (>60)
[2022-11-15 13:23] LABS: Albumin Level 3.5 g/dl (3.5-5.0); Albumin/Globulin Ratio 1.4 (1.1-1.8); Anion Gap 8.5 mEq/L (5-15); Calcium 8.7 mg/dl (8.4-10.2); Carbon Dioxide 28 mmol/L (22.0-30.0); Globulin 2.5 g/dL (1.3-3.2); Glucose 153 mg/dl (74-100)
[2022-11-15 13:50] VITALS: BP 144/75; PULSE 72; RESP 18; O2SAT 99
[2022-11-15 15:28] LABS: Hematocrit 36.4 % (42.0-52.0); Hemoglobin 12.2 g/dL (14.1-18.0); Mean Corpuscular HGB Conc 33.5 g/dL (31.8-35.4); Mean Corpuscular Hemoglobin 30.3 pg (27.0-31.2); Mean Corpuscular Volume 90.3 fl (80-94); Mean Platelet Volume 11.7 fl (7.4-10.4); Neutrophils % 72.7 % (37.0-80.0); Platelet Count 180 K/mm3 (142-424); Red Blood Count 4.03 M/mm3 (4.60-6.20); Red Cell Distribution Width 13.9 % (11.5-17.5)
[2022-11-15 15:29] LABS: Basophils % 0.5 % (0.1-2.0); Lymphocytes # 0.4 K/mm3 (0.7-4.5); Lymphocytes % 20.3 % (10-50); Monocytes # 0.1 K/mm3 (0.1-1.0); Monocytes % 4.9 % (1.7-9.3); Neutrophils # 1.4 K/mm3 (1.8-7.8)
[2022-11-15 15:32] LABS: White Blood Count 1.8 K/mm3 (4.8-10.8)
== END 2022-11-15 14:00 | disposition home or self-care (01) ==
LOC: INF 11:48
PROVIDERS: PCP Emergency Medicine; Visit Provider Internal Medicine Medical Oncology
DX: C34.31 Malignant neoplasm of lower lobe, right bronchus or lung (principal); E86.0 Dehydration
CPT/HCPCS: 80053; 85025; 96360; 96375; J1642; J1756

== ENCOUNTER 2022-11-29 09:34 | Outpatient (CLI) | payer MEDICARE, SELFPAY ==
[2022-11-29 09:38] VITALS: BMI 26.1
[2022-11-29 10:00] LABS: Basophils % 0.2 % (0.1-2.0); Eosinophils % 0.5 % (0.1-12.0); Hematocrit 39.1 % (42.0-52.0); Hemoglobin 12.7 g/dL (14.1-18.0); Lymphocytes # 1.2 K/mm3 (0.7-4.5); Lymphocytes % 19.3 % (10-50); Mean Corpuscular HGB Conc 32.4 g/dL (31.8-35.4); Mean Corpuscular Hemoglobin 29.9 pg (27.0-31.2); Mean Corpuscular Volume 92.2 fl (80-94); Mean Platelet Volume 8.7 fl (7.4-10.4); Monocytes # 0.6 K/mm3 (0.1-1.0); Neutrophils # 4.4 K/mm3 (1.8-7.8); Neutrophils % 70.1 % (37.0-80.0); Platelet Count 126 K/mm3 (142-424); Red Blood Count 4.24 M/mm3 (4.60-6.20); Red Cell Distribution Width 15.4 % (11.5-17.5); White Blood Count 6.3 K/mm3 (4.8-10.8)
[2022-11-29 10:08] LABS: Alanine Aminotransferase 23 U/L (12-78); Albumin Level 4.1 g/dl (3.5-5.0); Albumin/Globulin Ratio 1.6 (1.1-1.8); Alkaline Phosphatase 49 U/L (38-126); Anion Gap 11.1 mEq/L (5-15); Aspartate Amino Transferase 22 U/L (17-59); Bilirubin,Total 0.2 mg/dl (0.2-1.3); Blood Urea Nitrogen 13 mg/dl (9-20); Carbon Dioxide 26 mmol/L (22.0-30.0); Chloride 108 mmol/L (98-107); Creatinine Clearance Estimated 77 mL/min (50-200); Estimated Glomerular Filt Rate 97 ml/min (>60); GFR (African American) 117 ML/MIN (>60); Globulin 2.5 g/dL (1.3-3.2); Glucose 99 mg/dl (74-100); Potassium 4.1 mmoL/L (3.5-5.1); Sodium 141 mmol/L (136-145); Total Protein,Serum 6.6 g/dl (6.3-8.2)
[2022-11-29 11:02] VITALS: BP 138/69; PULSE 52; RESP 18; TEMP 36.7; O2SAT 97
[2022-11-29 11:51] VITALS: BP 131/70; PULSE 51; RESP 18; O2SAT 98
[2022-11-29 12:21] VITALS: BP 136/67; PULSE 54; RESP 18; O2SAT 98
[2022-11-29 13:10] VITALS: BP 155/77; PULSE 51; RESP 18; O2SAT 98
== END 2022-11-29 13:17 | disposition home or self-care (01) ==
LOC: INF 09:34
PROVIDERS: PCP Emergency Medicine; Visit Provider Internal Medicine Medical Oncology
DX: R91.8 Other nonspecific abnormal finding of lung field (principal); Z51.11 Encounter for antineoplastic chemotherapy; Z45.2 Encounter for adjustment and management of vascular access device; C34.31 Malignant neoplasm of lower lobe, right bronchus or lung; C79.9 Secondary malignant neoplasm of unspecified site
CPT/HCPCS: 80053; 85025; 96413; J1642; J2405; J9171

== ENCOUNTER 2022-12-04 11:01 | Outpatient (CLI) | payer MEDICARE, SELFPAY ==
[2022-12-04 11:05] VITALS: BMI 25.8
[2022-12-04 11:19] LABS: Basophils % 0.3 % (0.1-2.0); Eosinophils % 0.4 % (0.1-12.0); Hematocrit 42.9 % (42.0-52.0); Hemoglobin 13.8 g/dL (14.1-18.0); Lymphocytes # 1.5 K/mm3 (0.7-4.5); Lymphocytes % 21.1 % (10-50); Mean Corpuscular HGB Conc 32.2 g/dL (31.8-35.4); Mean Corpuscular Hemoglobin 29.8 pg (27.0-31.2); Mean Corpuscular Volume 92.3 fl (80-94); Mean Platelet Volume 9.9 fl (7.4-10.4); Monocytes # 0.4 K/mm3 (0.1-1.0); Monocytes % 5.7 % (1.7-9.3); Neutrophils # 5.2 K/mm3 (1.8-7.8); Neutrophils % 72.5 % (37.0-80.0); Platelet Count 143 K/mm3 (142-424); Red Blood Count 4.65 M/mm3 (4.60-6.20); Red Cell Distribution Width 15.4 % (11.5-17.5); White Blood Count 7.2 K/mm3 (4.8-10.8)
[2022-12-04 11:25] LABS: Alanine Aminotransferase 26 U/L (12-78); Albumin Level 4.2 g/dl (3.5-5.0); Albumin/Globulin Ratio 1.9 (1.1-1.8); Alkaline Phosphatase 41 U/L (38-126); Aspartate Amino Transferase 21 U/L (17-59); Bilirubin,Total 0.3 mg/dl (0.2-1.3); Blood Urea Nitrogen 23 mg/dl (9-20); Calcium 9.2 mg/dl (8.4-10.2); Carbon Dioxide 26 mmol/L (22.0-30.0); Chloride 104 mmol/L (98-107); Creatinine Clearance Estimated 76 mL/min (50-200); Estimated Glomerular Filt Rate 97 ml/min (>60); GFR (African American) 117 ML/MIN (>60); Globulin 2.2 g/dL (1.3-3.2); Glucose 100 mg/dl (74-100); Sodium 138 mmol/L (136-145); Total Protein,Serum 6.4 g/dl (6.3-8.2)
--- NOTE | 2022-12-04 11:52 | PC.NURSE ---
1152-notified with lab results and that pt has been having diarrhea since last chemo on 11/29 with out relief from imodium or pepto; new order for liter of ns bolus and dexamethasone 8mg iv.
[2022-12-04 12:00] VITALS: BP 130/82; PULSE 84; RESP 18; TEMP 36.7; O2SAT 95
[2022-12-04 13:05] VITALS: BP 152/70; PULSE 61; RESP 18
== END 2022-12-04 13:05 | disposition home or self-care (01) ==
LOC: INF 11:02
PROVIDERS: PCP Emergency Medicine; Visit Provider Internal Medicine Medical Oncology
DX: C34.31 Malignant neoplasm of lower lobe, right bronchus or lung (principal); C79.9 Secondary malignant neoplasm of unspecified site; R91.8 Other nonspecific abnormal finding of lung field; E86.0 Dehydration; Z45.2 Encounter for adjustment and management of vascular access device
CPT/HCPCS: 80053; 85025; 96360; 96375; J1642

== ENCOUNTER 2022-12-14 08:13 | Outpatient (CLI) | payer MEDICARE, SELFPAY ==
--- NOTE | 2022-12-14 08:19 | CT_ITS ---
FINAL REPORT CLINICAL HISTORY: LUNG CANCER COMPARISON: 10/09/2022 FINDINGS: Axial CT images of the chest were obtained with contrast. Coronal reformatted images were also obtained. This study was performed with techniques to keep radiation doses as low as reasonably achievable, (ALARA). Individualized dose reduction techniques using automated exposure control or adjustment of mA and/or KV according to the patients' size were employed. There has been prior median sternotomy. Small mediastinal nodes are stable. No axillary mass or adenopathy is identified. Right subclavian chest port is present. There is mild to moderate stenosis of the proximal left subclavian artery which is stable. Right lower lobe mass has improved now measuring 29 x 23 mm, was 42 x 34 mm. There is central low attenuation consistent with central necrosis. There is a left lower lobe nodule measuring 9 mm, was 9 mm, seen on image 52. There are multiple other less than 5 mm pulmonary nodules which are visually stable. There is no new mass or nodule. IMPRESSION: Improved primary mass in the right lower lobe consistent with improved primary neoplasm. Stable other pulmonary nodules are likely stable metastases. Reviewed, Interpreted and Dictated by Rishi Booker III, MD Transcribed by Maria Isabel Padilla Authenticated and . [facility]
--- NOTE | 2022-12-14 08:19 | CT_ITS ---
FINAL REPORT CLINICAL HISTORY: LUNG CANCER COMPARISON: 10/09/2022 FINDINGS: CT OF THE ABDOMEN AND PELVIS WITH CONTRAST Axial CT images of the abdomen and pelvis were obtained after the administration of oral and iv contrast. Coronal reformatted images were also obtained and reviewed.This study was performed with techniques to keep radiation doses as low as reasonably achievable (ALARA). Individualized dose reduction techniques using automated exposure control or adjustment of mA and/or kV according to the patient's size were employed. Abdomen: Mass involving the medial right hepatic lobe now measures 11 mm, was 16 mm. The low-attenuation focus in the anterior aspect of the medial segment of the left hepatic lobe now measures 11 mm, was 13 mm. This once again is of uncertain etiology. The spleen is unremarkable. No adrenal mass is present. There is a stable 7 mm fat attenuation mass in the pancreas which may represent a lipoma. The kidneys are normal, without evidence of mass or hydronephrosis. The aorta is normal in caliber. Moderate vascular calcifications. There is no free fluid or adenopathy. No new mass or adenopathy Pelvis: The appendix is normal. The urinary bladder is unremarkable. No inflammatory process is seen. There is no evidence of mass or adenopathy. There is sigmoid diverticula. There is no evidence of bowel obstruction. Prior right hip arthroplasty with streak artifact. IMPRESSION: Partially improved hepatic metastasis. Reviewed, Interpreted and Dictated by Rishi Booker III, MD Transcribed by Maria Isabel Padilla Authenticated and [facility]
--- NOTE | 2022-12-14 11:08 | PC.NURSE ---
0810- pt accessed for CT scan with power port needle. 0830- pt returned from CT scan. port saline and heparin flushed and needle removed. pt tolerated well.
== END 2022-12-14 08:34 | disposition home or self-care (01) ==
LOC: RAD 08:13 → INF 09:30
PROVIDERS: PCP Emergency Medicine; Visit Provider Internal Medicine Medical Oncology
DX: C34.30 Malignant neoplasm of lower lobe, unspecified bronchus or lung (principal)
CPT/HCPCS: 71260; 74177; J1642; Q9967

== ENCOUNTER 2022-12-20 08:39 | Outpatient (CLI) | payer MEDICARE, SELFPAY ==
[2022-12-20 08:40] VITALS: BMI 25.8
[2022-12-20 08:54] LABS: Basophils % 0.1 % (0.1-2.0); Hematocrit 41.2 % (42.0-52.0); Hemoglobin 13.3 g/dL (14.1-18.0); Lymphocytes # 1.1 K/mm3 (0.7-4.5); Lymphocytes % 5.7 % (10-50); Mean Corpuscular HGB Conc 32.2 g/dL (31.8-35.4); Mean Corpuscular Hemoglobin 30.3 pg (27.0-31.2); Mean Platelet Volume 9.7 fl (7.4-10.4); Monocytes # 0.9 K/mm3 (0.1-1.0); Monocytes % 4.8 % (1.7-9.3); Neutrophils # 17.1 K/mm3 (1.8-7.8); Neutrophils % 89.5 % (37.0-80.0); Platelet Count 153 K/mm3 (142-424); Red Blood Count 4.38 M/mm3 (4.60-6.20); Red Cell Distribution Width 16.3 % (11.5-17.5); White Blood Count 19.1 K/mm3 (4.8-10.8)
[2022-12-20 08:55] LABS: MANUAL DIFFERENTIAL MANUAL DIFFERENTIAL (MANUAL DIFF)
[2022-12-20 09:02] LABS: Chloride 105 mmol/L (98-107); Potassium 4.3 mmoL/L (3.5-5.1); Sodium 138 mmol/L (136-145)
[2022-12-20 09:05] LABS: Alanine Aminotransferase 29 U/L (12-78); Albumin Level 4.1 g/dl (3.5-5.0); Albumin/Globulin Ratio 1.6 (1.1-1.8); Alkaline Phosphatase 43 U/L (38-126); Anion Gap 13.3 mEq/L (5-15); Aspartate Amino Transferase 26 U/L (17-59); Bilirubin,Total 0.4 mg/dl (0.2-1.3); Blood Urea Nitrogen 22 mg/dl (9-20); Calcium 9.3 mg/dl (8.4-10.2); Carbon Dioxide 24 mmol/L (22.0-30.0); Creatinine Clearance Estimated 75 mL/min (50-200); Estimated Glomerular Filt Rate 113 ml/min (>60); GFR (African American) 137 ML/MIN (>60); Globulin 2.6 g/dL (1.3-3.2); Glucose 98 mg/dl (74-100); Total Protein,Serum 6.7 g/dl (6.3-8.2)
[2022-12-20 09:17] LABS: Lymphocytes % 12 % (10-50); Monocytes % 4 % (2-9); Neutrophils % 84 % (42-76); Platelet Estimate Slight Decrease; RBC Morphology Normal; Total Cells Counted 100
[2022-12-20 09:45] VITALS: BP 142/64; PULSE 53; RESP 18; TEMP 36.6; O2SAT 98
[2022-12-20 10:11] VITALS: BP 124/66; PULSE 61; RESP 18; O2SAT 98
[2022-12-20 10:41] VITALS: BP 119/62; PULSE 58; RESP 18; O2SAT 98
[2022-12-20 11:26] VITALS: BP 149/71; PULSE 59; RESP 18; O2SAT 99
== END 2022-12-20 11:28 | disposition home or self-care (01) ==
PROVIDERS: PCP Emergency Medicine; Visit Provider Internal Medicine Medical Oncology
DX: C34.31 Malignant neoplasm of lower lobe, right bronchus or lung (principal); Z45.2 Encounter for adjustment and management of vascular access device; Z79.899 Other long term (current) drug therapy
CPT/HCPCS: 80053; 85007; 85025; 96413; J1642; J2405; J9171

== ENCOUNTER 2023-01-10 09:03 | Outpatient (CLI) | payer MEDICARE, SELFPAY ==
[2023-01-10] VITALS (8 sets, daily range): BP systolic 146–194; BP diastolic 72–91; PULSE 51–54; RESP 18; TEMP 36.8; O2SAT 99; BMI 26.1
[2023-01-10 09:20] LABS: Basophils % 0.1 % (0.1-2.0); Hematocrit 41.2 % (42.0-52.0); Hemoglobin 13.2 g/dL (14.1-18.0); Lymphocytes # 1.4 K/mm3 (0.7-4.5); Lymphocytes % 6.8 % (10-50); Mean Corpuscular HGB Conc 32.1 g/dL (31.8-35.4); Mean Corpuscular Volume 93.3 fl (80-94); Mean Platelet Volume 9.7 fl (7.4-10.4); Monocytes # 1.3 K/mm3 (0.1-1.0); Monocytes % 6.4 % (1.7-9.3); Neutrophils # 17.4 K/mm3 (1.8-7.8); Neutrophils % 86.7 % (37.0-80.0); Platelet Count 161 K/mm3 (142-424); Red Blood Count 4.41 M/mm3 (4.60-6.20); Red Cell Distribution Width 16.8 % (11.5-17.5); White Blood Count 20.1 K/mm3 (4.8-10.8)
[2023-01-10 09:24] LABS: MANUAL DIFFERENTIAL MANUAL DIFFERENTIAL (MANUAL DIFF)
[2023-01-10 09:25] LABS: Chloride 105 mmol/L (98-107); Potassium 4.1 mmoL/L (3.5-5.1); Sodium 137 mmol/L (136-145)
[2023-01-10 09:27] LABS: Blood Urea Nitrogen 26 mg/dl (9-20); Creatinine Clearance Estimated 76 mL/min (50-200); Estimated Glomerular Filt Rate 113 ml/min (>60); GFR (African American) 137 ML/MIN (>60)
[2023-01-10 09:28] LABS: Alanine Aminotransferase 36 U/L (12-78); Albumin Level 3.9 g/dl (3.5-5.0); Albumin/Globulin Ratio 1.6 (1.1-1.8); Alkaline Phosphatase 40 U/L (38-126); Anion Gap 12.1 mEq/L (5-15); Aspartate Amino Transferase 24 U/L (17-59); Bilirubin,Total 0.3 mg/dl (0.2-1.3); Calcium 9.5 mg/dl (8.4-10.2); Carbon Dioxide 24 mmol/L (22.0-30.0); Globulin 2.5 g/dL (1.3-3.2); Glucose 132 mg/dl (74-100); Total Protein,Serum 6.4 g/dl (6.3-8.2)
[2023-01-10 10:09] LABS: Lymphocytes % 3 % (10-50); Monocytes % 4 % (2-9); Neutrophils % 91 % (42-76); Total Cells Counted 100
[2023-01-10 10:13] LABS: Platelet Estimate Normal; RBC Morphology Normal
== END 2023-01-10 12:40 | disposition home or self-care (01) ==
LOC: INF 09:03
PROVIDERS: PCP Emergency Medicine; Visit Provider Internal Medicine Medical Oncology
DX: C34.31 Malignant neoplasm of lower lobe, right bronchus or lung (principal); C79.9 Secondary malignant neoplasm of unspecified site; Z51.11 Encounter for antineoplastic chemotherapy; E86.0 Dehydration; Z45.2 Encounter for adjustment and management of vascular access device
CPT/HCPCS: 80053; 85007; 85025; 96361; 96413; J1642; J2405; J9171

== ENCOUNTER 2023-01-14 09:27 | Outpatient (CLI) | payer MEDICARE, SELFPAY ==
[2023-01-14 09:31] VITALS: BMI 26.1
[2023-01-14 09:48] LABS: Basophils % 0.1 % (0.1-2.0); Eosinophils % 0.2 % (0.1-12.0); Hematocrit 41.4 % (42.0-52.0); Hemoglobin 13.1 g/dL (14.1-18.0); Lymphocytes # 0.6 K/mm3 (0.7-4.5); Lymphocytes % 7.1 % (10-50); Mean Corpuscular HGB Conc 31.8 g/dL (31.8-35.4); Mean Corpuscular Hemoglobin 29.8 pg (27.0-31.2); Mean Corpuscular Volume 93.8 fl (80-94); Mean Platelet Volume 10.6 fl (7.4-10.4); Monocytes # 0.5 K/mm3 (0.1-1.0); Monocytes % 5.5 % (1.7-9.3); Neutrophils # 7.8 K/mm3 (1.8-7.8); Neutrophils % 87.2 % (37.0-80.0); Platelet Count 125 K/mm3 (142-424); Red Blood Count 4.41 M/mm3 (4.60-6.20); Red Cell Distribution Width 16.7 % (11.5-17.5); White Blood Count 8.9 K/mm3 (4.8-10.8)
[2023-01-14 09:50] LABS: MANUAL DIFFERENTIAL MANUAL DIFFERENTIAL (MANUAL DIFF)
[2023-01-14 09:55] LABS: Chloride 104 mmol/L (98-107); Potassium 4.2 mmoL/L (3.5-5.1); Sodium 136 mmol/L (136-145)
[2023-01-14 09:58] LABS: Alanine Aminotransferase 36 U/L (12-78); Albumin Level 3.6 g/dl (3.5-5.0); Albumin/Globulin Ratio 1.7 (1.1-1.8); Alkaline Phosphatase 39 U/L (38-126); Anion Gap 11.2 mEq/L (5-15); Aspartate Amino Transferase 22 U/L (17-59); Bilirubin,Total 0.5 mg/dl (0.2-1.3); Blood Urea Nitrogen 23 mg/dl (9-20); Calcium 8.5 mg/dl (8.4-10.2); Carbon Dioxide 25 mmol/L (22.0-30.0); Creatinine Clearance Estimated 76 mL/min (50-200); Estimated Glomerular Filt Rate 97 ml/min (>60); GFR (African American) 117 ML/MIN (>60); Globulin 2.1 g/dL (1.3-3.2); Glucose 88 mg/dl (74-100); Total Protein,Serum 5.7 g/dl (6.3-8.2)
[2023-01-14 10:25] LABS: Lymphocytes % 8 % (10-50); Monocytes % 1 % (2-9); Neutrophils % 90 % (42-76); Platelet Estimate Slight Decrease; RBC Morphology Normal; Total Cells Counted 100
[2023-01-14 10:26] LABS: Anisocytosis 1+
[2023-01-14 10:30] VITALS: BP 147/76; PULSE 74; RESP 18; O2SAT 99
[2023-01-14 11:33] VITALS: BP 131/72; PULSE 69; RESP 18; O2SAT 95
== END 2023-01-14 11:36 | disposition home or self-care (01) ==
LOC: INF 09:28
PROVIDERS: PCP Emergency Medicine; Visit Provider Internal Medicine Medical Oncology
DX: J98.4 Other disorders of lung (principal); E86.0 Dehydration
CPT/HCPCS: 80053; 85007; 85025; 96360; 96375; J1642; J2405

== ENCOUNTER 2023-01-31 08:59 | Outpatient (CLI) | payer MEDICARE, SELFPAY ==
[2023-01-31 09:03] VITALS: BMI 26.1
[2023-01-31 09:40] VITALS: BP 131/72; PULSE 70; RESP 18; O2SAT 98
[2023-01-31 09:41] LABS: Chloride 108 mmol/L (98-107); Potassium 3.8 mmoL/L (3.5-5.1); Sodium 139 mmol/L (136-145)
[2023-01-31 09:43] LABS: Blood Urea Nitrogen 17 mg/dl (9-20); Creatinine Clearance Estimated 76 mL/min (50-200); Estimated Glomerular Filt Rate 113 ml/min (>60); GFR (African American) 137 ML/MIN (>60)
[2023-01-31 09:44] LABS: Alanine Aminotransferase 34 U/L (12-78); Albumin Level 3.6 g/dl (3.5-5.0); Albumin/Globulin Ratio 1.6 (1.1-1.8); Alkaline Phosphatase 36 U/L (38-126); Anion Gap 11.8 mEq/L (5-15); Aspartate Amino Transferase 26 U/L (17-59); Bilirubin,Total 0.2 mg/dl (0.2-1.3); Calcium 8.5 mg/dl (8.4-10.2); Carbon Dioxide 23 mmol/L (22.0-30.0); Globulin 2.3 g/dL (1.3-3.2); Glucose 107 mg/dl (74-100); Total Protein,Serum 5.9 g/dl (6.3-8.2)
[2023-01-31 09:45] LABS: Basophils % 0.1 % (0.1-2.0); Hemoglobin 11.8 g/dL (14.1-18.0); Lymphocytes # 1.6 K/mm3 (0.7-4.5); Lymphocytes % 8.3 % (10-50); Mean Corpuscular HGB Conc 32.8 g/dL (31.8-35.4); Mean Corpuscular Hemoglobin 31.1 pg (27.0-31.2); Mean Corpuscular Volume 94.8 fl (80-94); Mean Platelet Volume 8.9 fl (7.4-10.4); Monocytes # 1.4 K/mm3 (0.1-1.0); Monocytes % 7.8 % (1.7-9.3); Neutrophils # 15.6 K/mm3 (1.8-7.8); Neutrophils % 83.9 % (37.0-80.0); Platelet Count 161 K/mm3 (142-424); White Blood Count 18.6 K/mm3 (4.8-10.8)
[2023-01-31 09:51] LABS: MANUAL DIFFERENTIAL MANUAL DIFFERENTIAL (MANUAL DIFF)
[2023-01-31 10:10] VITALS: BP 146/71; PULSE 60; RESP 18; O2SAT 97
[2023-01-31 10:50] VITALS: BP 140/68; PULSE 62; RESP 16; O2SAT 98
[2023-01-31 12:02] LABS: Lymphocytes % 9 % (10-50); Monocytes % 2 % (2-9); Neutrophils % 89 % (42-76); Platelet Estimate Normal; RBC Morphology Normal; Total Cells Counted 100
== END 2023-01-31 10:50 | disposition home or self-care (01) ==
LOC: INF 09:00
PROVIDERS: PCP Emergency Medicine; Visit Provider Internal Medicine Medical Oncology
DX: C34.31 Malignant neoplasm of lower lobe, right bronchus or lung (principal); C79.9 Secondary malignant neoplasm of unspecified site; R19.7 Diarrhea, unspecified; E86.0 Dehydration; Z45.2 Encounter for adjustment and management of vascular access device
CPT/HCPCS: 80053; 85007; 85025; 96360; J1642

== ENCOUNTER 2023-02-07 10:04 | Outpatient (CLI) | payer MEDICARE, SELFPAY ==
[2023-02-07 10:10] VITALS: BMI 26.1
[2023-02-07 10:42] LABS: Alanine Aminotransferase 25 U/L (12-78); Albumin Level 4.1 g/dl (3.5-5.0); Albumin/Globulin Ratio 1.7 (1.1-1.8); Alkaline Phosphatase 36 U/L (38-126); Anion Gap 11.5 mEq/L (5-15); Aspartate Amino Transferase 25 U/L (17-59); Bilirubin,Total 0.2 mg/dl (0.2-1.3); Blood Urea Nitrogen 19 mg/dl (9-20); Calcium 8.8 mg/dl (8.4-10.2); Carbon Dioxide 26 mmol/L (22.0-30.0); Chloride 103 mmol/L (98-107); Creatinine Clearance Estimated 76 mL/min (50-200); Estimated Glomerular Filt Rate 135 ml/min (>60); GFR (African American) 163 ML/MIN (>60); Globulin 2.4 g/dL (1.3-3.2); Glucose 114 mg/dl (74-100); Potassium 4.5 mmoL/L (3.5-5.1); Sodium 136 mmol/L (136-145); Total Protein,Serum 6.5 g/dl (6.3-8.2)
[2023-02-07 13:11] LABS: Basophils % 0.1 % (0.1-2.0); Hematocrit 35.6 % (42.0-52.0); Hemoglobin 12.1 g/dL (14.1-18.0); Lymphocytes # 0.8 K/mm3 (0.7-4.5); Lymphocytes % 6.3 % (10-50); Mean Corpuscular Hemoglobin 32.9 pg (27.0-31.2); Mean Corpuscular Volume 96.7 fl (80-94); Monocytes # 0.5 K/mm3 (0.1-1.0); Monocytes % 4.4 % (1.7-9.3); Neutrophils # 10.6 K/mm3 (1.8-7.8); Neutrophils % 89.2 % (37.0-80.0); Platelet Count 162 K/mm3 (142-424); Red Blood Count 3.68 M/mm3 (4.60-6.20); Red Cell Distribution Width 18.2 % (11.5-17.5); White Blood Count 11.9 K/mm3 (4.8-10.8)
[2023-02-07 13:20] LABS: MANUAL DIFFERENTIAL MANUAL DIFFERENTIAL (MANUAL DIFF)
[2023-02-07 13:53] LABS: Lymphocytes % 5 % (10-50); Monocytes % 7 % (2-9); Neutrophils % 88 % (42-76); Platelet Estimate Normal; Total Cells Counted 100
[2023-02-07 13:54] LABS: RBC Morphology Normal
== END 2023-02-07 11:24 | disposition home or self-care (01) ==
LOC: INF 10:05
PROVIDERS: PCP Emergency Medicine; Visit Provider Internal Medicine Medical Oncology
DX: C34.31 Malignant neoplasm of lower lobe, right bronchus or lung (principal); Z45.2 Encounter for adjustment and management of vascular access device
CPT/HCPCS: 36591; 80053; 85007; 85025; J1642

== ENCOUNTER → 2023-02-14 10:56 | Outpatient (CLI) | payer MEDICARE, SELFPAY | PROVIDERS: PCP Emergency Medicine; Visit Provider Internal Medicine Medical Oncology | DX: C34.90 Malignant neoplasm of unspecified part of unspecified bronchus or lung (principal) ==

== ENCOUNTER 2023-02-15 09:02 | Outpatient (CLI) | payer MEDICARE, SELFPAY ==
[2023-02-15 09:11] VITALS: BMI 26.8
[2023-02-15 09:28] LABS: Basophils % 0.1 % (0.1-2.0); Hemoglobin 12.9 g/dL (14.1-18.0); Lymphocytes # 0.8 K/mm3 (0.7-4.5); Lymphocytes % 4.5 % (10-50); Mean Corpuscular HGB Conc 33.9 g/dL (31.8-35.4); Mean Corpuscular Hemoglobin 32.7 pg (27.0-31.2); Mean Corpuscular Volume 96.5 fl (80-94); Mean Platelet Volume 8.7 fl (7.4-10.4); Monocytes # 0.8 K/mm3 (0.1-1.0); Monocytes % 4.6 % (1.7-9.3); Neutrophils # 16.5 K/mm3 (1.8-7.8); Neutrophils % 90.8 % (37.0-80.0); Platelet Count 132 K/mm3 (142-424); Red Blood Count 3.93 M/mm3 (4.60-6.20); Red Cell Distribution Width 17.9 % (11.5-17.5); White Blood Count 18.2 K/mm3 (4.8-10.8)
[2023-02-15 09:33] LABS: Chloride 105 mmol/L (98-107); Sodium 138 mmol/L (136-145)
[2023-02-15 09:35] LABS: MANUAL DIFFERENTIAL MANUAL DIFFERENTIAL (MANUAL DIFF)
[2023-02-15 09:36] LABS: Alanine Aminotransferase 37 U/L (12-78); Albumin Level 4.1 g/dl (3.5-5.0); Albumin/Globulin Ratio 1.8 (1.1-1.8); Alkaline Phosphatase 37 U/L (38-126); Aspartate Amino Transferase 27 U/L (17-59); Blood Urea Nitrogen 17 mg/dl (9-20); Calcium 8.5 mg/dl (8.4-10.2); Carbon Dioxide 26 mmol/L (22.0-30.0); Creatinine Clearance Estimated 77 mL/min (50-200); Estimated Glomerular Filt Rate 113 ml/min (>60); GFR (African American) 137 ML/MIN (>60); Globulin 2.3 g/dL (1.3-3.2); Glucose 144 mg/dl (74-100); Total Protein,Serum 6.4 g/dl (6.3-8.2)
[2023-02-15 09:40] LABS: Bilirubin,Total 0.1 mg/dl (0.2-1.3)
[2023-02-15 09:58] LABS: Lymphocytes % 5 % (10-50); Monocytes % 3 % (2-9); Neutrophils % 92 % (42-76); Platelet Estimate Normal; RBC Morphology Normal; Total Cells Counted 100
[2023-02-15 10:52] LABS: Iron 133 ug/dL (49-181)
[2023-02-15 11:00] VITALS: BP 111/67; PULSE 71; RESP 18; TEMP 36.8; O2SAT 98
[2023-02-15 11:00] LABS: Total Iron Binding Capacity 244 ug/dL (261-462)
[2023-02-15 11:15] VITALS: BP 163/88; PULSE 76
[2023-02-15 11:28] LABS: Ferritin 245 ng/ml (17.9-464)
[2023-02-15 11:30] VITALS: BP 184/86; PULSE 75
[2023-02-15 11:45] VITALS: BP 162/79; PULSE 79
== END 2023-02-15 12:07 | disposition home or self-care (01) ==
LOC: INF 09:02
PROVIDERS: PCP Emergency Medicine; Visit Provider Internal Medicine Medical Oncology
DX: R91.8 Other nonspecific abnormal finding of lung field (principal); C34.31 Malignant neoplasm of lower lobe, right bronchus or lung; C79.9 Secondary malignant neoplasm of unspecified site; D50.9 Iron deficiency anemia, unspecified
CPT/HCPCS: 80053; 82728; 83540; 83550; 85007; 85025; 96413; J1642; J2405; J9171

== ENCOUNTER 2023-02-19 09:26 | Outpatient (CLI) | payer MEDICARE, SELFPAY ==
[2023-02-19 09:38] VITALS: BMI 26.1
--- NOTE | 2023-02-19 09:40 | PC.NURSE ---
0940-notified md with pt condition;new orders for cbc, cmp, ns 1 liter bolus, dexamethasone 12mg ivp, compazine 10mg iv once;notify md with lab results.
[2023-02-19 09:52] VITALS: BP 151/87; PULSE 81; RESP 18; TEMP 37; O2SAT 98
[2023-02-19 09:59] LABS: Basophils % 0.1 % (0.1-2.0); Hematocrit 40.7 % (42.0-52.0); Hemoglobin 13.9 g/dL (14.1-18.0); Lymphocytes # 0.3 K/mm3 (0.7-4.5); Lymphocytes % 2.5 % (10-50); Mean Corpuscular HGB Conc 34.1 g/dL (31.8-35.4); Mean Corpuscular Hemoglobin 32.9 pg (27.0-31.2); Mean Corpuscular Volume 96.4 fl (80-94); Mean Platelet Volume 9.4 fl (7.4-10.4); Monocytes # 0.6 K/mm3 (0.1-1.0); Monocytes % 4.5 % (1.7-9.3); Neutrophils # 12.1 K/mm3 (1.8-7.8); Neutrophils % 92.8 % (37.0-80.0); Platelet Count 110 K/mm3 (142-424); Red Blood Count 4.23 M/mm3 (4.60-6.20); Red Cell Distribution Width 17.3 % (11.5-17.5); White Blood Count 13.1 K/mm3 (4.8-10.8)
[2023-02-19 10:11] LABS: MANUAL DIFFERENTIAL MANUAL DIFFERENTIAL (MANUAL DIFF)
[2023-02-19 10:12] LABS: Alanine Aminotransferase 40 U/L (12-78); Albumin Level 3.9 g/dl (3.5-5.0); Albumin/Globulin Ratio 1.8 (1.1-1.8); Alkaline Phosphatase 42 U/L (38-126); Anion Gap 11.4 mEq/L (5-15); Aspartate Amino Transferase 27 U/L (17-59); Bilirubin,Total 0.6 mg/dl (0.2-1.3); Blood Urea Nitrogen 30 mg/dl (9-20); Calcium 8.6 mg/dl (8.4-10.2); Carbon Dioxide 25 mmol/L (22.0-30.0); Chloride 100 mmol/L (98-107); Creatinine Clearance Estimated 76 mL/min (50-200); Estimated Glomerular Filt Rate 135 ml/min (>60); GFR (African American) 163 ML/MIN (>60); Globulin 2.2 g/dL (1.3-3.2); Glucose 138 mg/dl (74-100); Potassium 4.4 mmoL/L (3.5-5.1); Sodium 132 mmol/L (136-145); Total Protein,Serum 6.1 g/dl (6.3-8.2)
--- NOTE | 2023-02-19 10:23 | PC.NURSE ---
1023-notified md with lab results; no new orders at this time.
[2023-02-19 10:36] LABS: Lymphocytes % 4 % (10-50); Neutrophils % 96 % (42-76); Total Cells Counted 100
[2023-02-19 10:37] LABS: Anisocytosis 2+
[2023-02-19 10:38] LABS: Macrocytosis 1+; Platelet Estimate Moderate Decrease
[2023-02-19 10:53] VITALS: BP 142/65; PULSE 74; RESP 18
== END 2023-02-19 10:53 | disposition home or self-care (01) ==
LOC: INF 09:27
PROVIDERS: PCP Emergency Medicine; Visit Provider Internal Medicine Medical Oncology
DX: R91.8 Other nonspecific abnormal finding of lung field (principal); C34.31 Malignant neoplasm of lower lobe, right bronchus or lung; E86.0 Dehydration
CPT/HCPCS: 80053; 85007; 85025; 96360; 96375; J1642

== ENCOUNTER 2023-03-07 08:40 | Outpatient (CLI) | payer MEDICARE, SELFPAY ==
[2023-03-07 08:45] VITALS: BMI 26.1
[2023-03-07 08:59] LABS: Basophils % 0.1 % (0.1-2.0); Eosinophils % 0.1 % (0.1-12.0); Hematocrit 34.5 % (42.0-52.0); Hemoglobin 11.9 g/dL (14.1-18.0); Lymphocytes # 1.2 K/mm3 (0.7-4.5); Lymphocytes % 11.3 % (10-50); Mean Corpuscular HGB Conc 34.5 g/dL (31.8-35.4); Mean Corpuscular Hemoglobin 32.4 pg (27.0-31.2); Mean Corpuscular Volume 93.8 fl (80-94); Monocytes # 0.8 K/mm3 (0.1-1.0); Monocytes % 7.8 % (1.7-9.3); Neutrophils # 8.1 K/mm3 (1.8-7.8); Neutrophils % 80.6 % (37.0-80.0); Platelet Count 147 K/mm3 (142-424); Red Blood Count 3.68 M/mm3 (4.60-6.20); Red Cell Distribution Width 17.3 % (11.5-17.5)
[2023-03-07 09:08] LABS: Alanine Aminotransferase 25 U/L (12-78); Albumin/Globulin Ratio 1.5 (1.1-1.8); Alkaline Phosphatase 44 U/L (38-126); Anion Gap 15.8 mEq/L (5-15); Aspartate Amino Transferase 24 U/L (17-59); Bilirubin,Total 0.2 mg/dl (0.2-1.3); Blood Urea Nitrogen 15 mg/dl (9-20); Calcium 9.3 mg/dl (8.4-10.2); Carbon Dioxide 22 mmol/L (22.0-30.0); Chloride 106 mmol/L (98-107); Creatinine Clearance Estimated 76 mL/min (50-200); Estimated Glomerular Filt Rate 113 ml/min (>60); GFR (African American) 137 ML/MIN (>60); Globulin 2.7 g/dL (1.3-3.2); Glucose 114 mg/dl (74-100); Potassium 3.8 mmoL/L (3.5-5.1); Sodium 140 mmol/L (136-145); Total Protein,Serum 6.7 g/dl (6.3-8.2)
[2023-03-07 09:38] LABS: Thyroid Stimulating Hormone 0.83 uIU/mL (0.465-4.68)
[2023-03-07 10:30] VITALS: BP 100/59; PULSE 69; RESP 17; TEMP 36.6; O2SAT 96
[2023-03-07 10:45] VITALS: BP 111/57; PULSE 63; RESP 16
[2023-03-07 11:00] VITALS: BP 112/56; PULSE 65; RESP 16
[2023-03-07 11:15] VITALS: BP 108/57; PULSE 64; RESP 16
[2023-03-07 11:30] VITALS: BP 132/63; PULSE 60; RESP 16
[2023-03-08 14:44] LABS: Adrenocorticotropic Hormone 4.3 pg/mL (7.2-63.3)
== END 2023-03-07 11:45 | disposition home or self-care (01) ==
PROVIDERS: PCP Emergency Medicine; Visit Provider Internal Medicine Medical Oncology
DX: Z79.899 Other long term (current) drug therapy; C34.31 Malignant neoplasm of lower lobe, right bronchus or lung
CPT/HCPCS: 80053; 82024; 82533; 84443; 85025; 96413; J1642; J2405; J9171

== ENCOUNTER 2023-03-25 08:40 | Outpatient (CLI) | payer MEDICARE, SELFPAY ==
[2023-03-25 08:33] VITALS: BMI 26.6
--- NOTE | 2023-03-25 08:45 | CT_ITS ---
FINAL REPORT TECHNIQUE: Axial images through the chest was performed with and without contrast by computed tomography. Sagittal and coronal reformatted images were obtained and reviewed. This study was performed with techniques to keep radiation doses as low as reasonably achievable (ALARA). Individualized dose reduction techniques using automated exposure control or adjustment of mA and/or kV according to the patient's size were employed. CLINICAL HISTORY: LUNG CANCER COMPARISON: 12/14/2022 FINDINGS: There is a spiculated mass in the right lower lobe measuring 38 x 29 mm, previously 29 x 23 mm. There is a stable left lower lobe nodule measuring 8-9 mm. Few other tiny nodules are seen, stable. The patient is status post CABG. There is no pleural or pericardial effusion. There is no adenopathy. IMPRESSION: Interval enlargement in primary tumor in the right lower lobe. Small pulmonary nodules, presumably metastatic are stable. Reviewed, Interpreted and Dictated by Keaton Gandhi MD Transcribed by rBigette Bernard Authenticated and . [facility]
--- NOTE | 2023-03-25 08:45 | CT_ITS ---
FINAL REPORT TECHNIQUE: Axial CT of the abdomen and pelvis, without and with IV contrast. Sagittal and coronal reformatted images were obtained and reviewed. This study was performed with techniques to keep radiation doses as low as reasonably achievable (ALARA). Individualized dose reduction techniques using automated exposure control or adjustment of mA and/or kV according to the patient's size were employed. CLINICAL HISTORY: LUNG CANCER. FOLLOW UP COMPARISON: 12/14/2022 FINDINGS: Abdomen: There is a hypodense lesion in the right hepatic lobe near the IVC measuring 12 mm, essentially unchanged. There is an ill-defined hypodensity subcapsular left hepatic lobe which is not as well seen compared to prior exam. No new liver lesion is identified. There is a small lipoma within the distal pancreatic body. The gallbladder is normal. Remaining solid abdominal organs are unremarkable. Precontrast imaging shows no renal stone disease. Postcontrast imaging of the kidneys shows no mass or obstruction. No bowel obstruction or fluid collection is seen. Pelvis: The appendix is not visualized. Pelvic bowel loops are unremarkable. No fluid collection or adenopathy is seen. IMPRESSION: Stable appearance of 12 mm lesion in the right hepatic lobe suspicious for metastases. No evidence of disease progression within the abdomen or pelvis. Reviewed, Interpreted and Dictated by Keaton Gandhi MD Transcribed by Brigette Bernard Authenticated and . [facility]
[2023-03-25 08:57] LABS: Eosinophils % 0.1 % (0.1-12.0); Hematocrit 37.3 % (42.0-52.0); Hemoglobin 12.3 g/dL (14.1-18.0); Lymphocytes # 0.7 K/mm3 (0.7-4.5); Lymphocytes % 7.1 % (10-50); Mean Corpuscular HGB Conc 32.9 g/dL (31.8-35.4); Mean Platelet Volume 8.5 fl (7.4-10.4); Monocytes # 0.2 K/mm3 (0.1-1.0); Monocytes % 2.6 % (1.7-9.3); Neutrophils # 8.4 K/mm3 (1.8-7.8); Neutrophils % 90.3 % (37.0-80.0); Platelet Count 145 K/mm3 (142-424); Red Blood Count 3.97 M/mm3 (4.60-6.20); Red Cell Distribution Width 17.4 % (11.5-17.5); White Blood Count 9.3 K/mm3 (4.8-10.8)
[2023-03-25 09:03] LABS: MANUAL DIFFERENTIAL MANUAL DIFFERENTIAL (MANUAL DIFF)
[2023-03-25 09:05] LABS: Alanine Aminotransferase 28 U/L (12-78); Albumin Level 4.3 g/dl (3.5-5.0); Albumin/Globulin Ratio 1.6 (1.1-1.8); Alkaline Phosphatase 38 U/L (38-126); Anion Gap 12.2 mEq/L (5-15); Aspartate Amino Transferase 26 U/L (17-59); Bilirubin,Total 0.3 mg/dl (0.2-1.3); Blood Urea Nitrogen 15 mg/dl (9-20); Calcium 9.1 mg/dl (8.4-10.2); Carbon Dioxide 23 mmol/L (22.0-30.0); Chloride 105 mmol/L (98-107); Creatinine Clearance Estimated 77 mL/min (50-200); Estimated Glomerular Filt Rate 113 ml/min (>60); GFR (African American) 137 ML/MIN (>60); Globulin 2.7 g/dL (1.3-3.2); Glucose 153 mg/dl (74-100); Potassium 4.2 mmoL/L (3.5-5.1); Sodium 136 mmol/L (136-145)
[2023-03-25 09:24] LABS: Lymphocytes % 8 % (10-50); Monocytes % 3 % (2-9); Neutrophils % 89 % (42-76); Total Cells Counted 100
[2023-03-25 09:25] LABS: Platelet Estimate Normal; RBC Morphology Normal
== END 2023-03-25 09:30 | disposition home or self-care (01) ==
LOC: RAD 08:40
PROVIDERS: PCP Internal Medicine; Visit Provider Internal Medicine Medical Oncology
DX: C34.31 Malignant neoplasm of lower lobe, right bronchus or lung (principal)
CPT/HCPCS: 71270; 74178; 80053; 85007; 85025; J1642; Q9967

== ENCOUNTER 2023-03-27 09:46 | Outpatient (CLI) | payer MEDICARE, SELFPAY ==
--- NOTE | 2023-03-27 10:10 | PC.NURSE ---
1010-pt to d/c home today; dr. chiang cancelled treatment today pt to receive new treatment regimen at a later date.
== END 2023-03-27 10:10 | disposition home or self-care (01) ==
LOC: INF 09:48
PROVIDERS: PCP Physician Assistant; Visit Provider Internal Medicine Medical Oncology
DX: C34.31 Malignant neoplasm of lower lobe, right bronchus or lung (principal)

== ENCOUNTER 2023-04-03 09:35 | Outpatient (CLI) | payer MEDICARE, SELFPAY ==
[2023-04-03 10:03] VITALS: BP 114/52; PULSE 72; RESP 18; TEMP 36.6; O2SAT 97
[2023-04-03 10:35] VITALS: BP 103/64; PULSE 56; RESP 18; O2SAT 97
[2023-04-03 11:05] VITALS: BP 110/56; PULSE 65; RESP 18; O2SAT 97
[2023-04-03 11:19] VITALS: BP 114/53; PULSE 68; RESP 18; O2SAT 97
== END 2023-04-03 11:19 | disposition home or self-care (01) ==
LOC: INF 09:36
PROVIDERS: PCP Physician Assistant; Visit Provider Internal Medicine Medical Oncology
DX: C34.91 Malignant neoplasm of unspecified part of right bronchus or lung (principal); Z51.11 Encounter for antineoplastic chemotherapy; Z45.2 Encounter for adjustment and management of vascular access device
CPT/HCPCS: 96413; J1642; J9201

== ENCOUNTER 2023-04-10 07:55 | Outpatient (CLI) | payer MEDICARE, SELFPAY ==
[2023-04-10 08:11] VITALS: BMI 26.4
[2023-04-10 08:33] LABS: Chloride 107 mmol/L (98-107); Sodium 138 mmol/L (136-145)
[2023-04-10 08:35] LABS: Basophils % 0.5 % (0.1-2.0); Eosinophils % 0.8 % (0.1-12.0); Hematocrit 33.3 % (42.0-52.0); Lymphocytes # 0.7 K/mm3 (0.7-4.5); Lymphocytes % 22.9 % (10-50); Mean Corpuscular Hemoglobin 31.5 pg (27.0-31.2); Mean Corpuscular Volume 95.6 fl (80-94); Monocytes # 0.2 K/mm3 (0.1-1.0); Monocytes % 5.4 % (1.7-9.3); Neutrophils # 2.2 K/mm3 (1.8-7.8); Neutrophils % 70.4 % (37.0-80.0); Platelet Count 110 K/mm3 (142-424); Red Blood Count 3.48 M/mm3 (4.60-6.20); Red Cell Distribution Width 17.2 % (11.5-17.5); White Blood Count 3.1 K/mm3 (4.8-10.8)
[2023-04-10 08:36] LABS: Alanine Aminotransferase 41 U/L (12-78); Albumin Level 3.8 g/dl (3.5-5.0); Albumin/Globulin Ratio 1.7 (1.1-1.8); Alkaline Phosphatase 36 U/L (38-126); Aspartate Amino Transferase 33 U/L (17-59); Bilirubin,Total 0.3 mg/dl (0.2-1.3); Blood Urea Nitrogen 15 mg/dl (9-20); Calcium 8.2 mg/dl (8.4-10.2); Carbon Dioxide 27 mmol/L (22.0-30.0); Creatinine Clearance Estimated 76 mL/min (50-200); Estimated Glomerular Filt Rate 97 ml/min (>60); GFR (African American) 117 ML/MIN (>60); Globulin 2.3 g/dL (1.3-3.2); Glucose 118 mg/dl (74-100); Total Protein,Serum 6.1 g/dl (6.3-8.2)
[2023-04-10 09:20] VITALS: BP 106/57; PULSE 62; RESP 18; TEMP 36.8; O2SAT 97
[2023-04-10 09:35] VITALS: BP 113/54; PULSE 65; RESP 18
[2023-04-10 09:50] VITALS: BP 107/53; PULSE 61
[2023-04-10 10:00] VITALS: BP 105/60; PULSE 63
== END 2023-04-10 10:00 | disposition home or self-care (01) ==
LOC: INF 07:57
PROVIDERS: PCP Physician Assistant; Visit Provider Internal Medicine Medical Oncology
DX: R91.8 Other nonspecific abnormal finding of lung field (principal); C34.31 Malignant neoplasm of lower lobe, right bronchus or lung; Z45.2 Encounter for adjustment and management of vascular access device
CPT/HCPCS: 80053; 85025; 96413; J1642; J9201

== ENCOUNTER 2023-04-17 08:42 | Outpatient (CLI) | payer MEDICARE, SELFPAY ==
[2023-04-17 08:43] VITALS: BMI 26.4
[2023-04-17 09:02] LABS: Basophils % 0.1 % (0.1-2.0); Hemoglobin 10.4 g/dL (14.1-18.0); Lymphocytes # 0.7 K/mm3 (0.7-4.5); Lymphocytes % 47.5 % (10-50); Mean Corpuscular HGB Conc 34.6 g/dL (31.8-35.4); Mean Corpuscular Hemoglobin 32.4 pg (27.0-31.2); Mean Corpuscular Volume 93.6 fl (80-94); Mean Platelet Volume 9.1 fl (7.4-10.4); Monocytes % 2.3 % (1.7-9.3); Neutrophils # 0.7 K/mm3 (1.8-7.8); Neutrophils % 49.1 % (37.0-80.0); Red Blood Count 3.21 M/mm3 (4.60-6.20); Red Cell Distribution Width 16.6 % (11.5-17.5); White Blood Count 1.4 K/mm3 (4.8-10.8)
[2023-04-17 09:12] LABS: Platelet Count 37 K/mm3 (142-424)
[2023-04-17 09:14] LABS: Chloride 106 mmol/L (98-107); Potassium 4.3 mmoL/L (3.5-5.1); Sodium 138 mmol/L (136-145)
[2023-04-17 09:16] LABS: Blood Urea Nitrogen 10 mg/dl (9-20); Creatinine Clearance Estimated 76 mL/min (50-200); Estimated Glomerular Filt Rate 97 ml/min (>60); GFR (African American) 117 ML/MIN (>60)
[2023-04-17 09:17] LABS: Alanine Aminotransferase 83 U/L (12-78); Albumin/Globulin Ratio 1.8 (1.1-1.8); Alkaline Phosphatase 35 U/L (38-126); Anion Gap 10.3 mEq/L (5-15); Aspartate Amino Transferase 50 U/L (17-59); Bilirubin,Total 0.3 mg/dl (0.2-1.3); Calcium 8.8 mg/dl (8.4-10.2); Carbon Dioxide 26 mmol/L (22.0-30.0); Globulin 2.2 g/dL (1.3-3.2); Glucose 109 mg/dl (74-100); Total Protein,Serum 6.2 g/dl (6.3-8.2)
[2023-04-17] MEDS: SODIUM CHLORIDE 0.9% 10ML FLUSH SYRINGE 10 ML IV (10:14)
== END 2023-04-17 09:30 | disposition home or self-care (01) ==
LOC: INF 08:43
PROVIDERS: PCP Internal Medicine; Visit Provider Internal Medicine Medical Oncology
DX: C34.31 Malignant neoplasm of lower lobe, right bronchus or lung; Z45.2 Encounter for adjustment and management of vascular access device
CPT/HCPCS: 36591; 80053; 85025; J1642

== ENCOUNTER 2023-04-24 08:26 | Outpatient (CLI) | payer MEDICARE, SELFPAY ==
[2023-04-24] MEDS: SODIUM CHLORIDE 0.9% 10ML FLUSH SYRINGE 10 ML IV (08:38)
[2023-04-24 08:41] VITALS: BMI 26.5
[2023-04-24 08:56] LABS: Basophils % 0.3 % (0.1-2.0); Eosinophils # 0.2 K/mm3 (0.0-0.4); Eosinophils % 3.6 % (0.1-12.0); Hematocrit 31.6 % (42.0-52.0); Hemoglobin 10.3 g/dL (14.1-18.0); Lymphocytes # 1.1 K/mm3 (0.7-4.5); Lymphocytes % 25.2 % (10-50); Mean Corpuscular HGB Conc 32.5 g/dL (31.8-35.4); Mean Corpuscular Hemoglobin 31.8 pg (27.0-31.2); Monocytes # 0.4 K/mm3 (0.1-1.0); Monocytes % 9.4 % (1.7-9.3); Neutrophils # 2.7 K/mm3 (1.8-7.8); Neutrophils % 61.5 % (37.0-80.0); Platelet Count 167 K/mm3 (142-424); Red Blood Count 3.23 M/mm3 (4.60-6.20); Red Cell Distribution Width 20.1 % (11.5-17.5); White Blood Count 4.4 K/mm3 (4.8-10.8)
[2023-04-24 09:00] LABS: Alanine Aminotransferase 54 U/L (12-78); Albumin Level 3.7 g/dl (3.5-5.0); Albumin/Globulin Ratio 1.7 (1.1-1.8); Alkaline Phosphatase 36 U/L (38-126); Aspartate Amino Transferase 33 U/L (17-59); Bilirubin,Total 0.3 mg/dl (0.2-1.3); Blood Urea Nitrogen 11 mg/dl (9-20); Calcium 8.3 mg/dl (8.4-10.2); Carbon Dioxide 24 mmol/L (22.0-30.0); Chloride 106 mmol/L (98-107); Creatinine Clearance Estimated 77 mL/min (50-200); Estimated Glomerular Filt Rate 113 ml/min (>60); GFR (African American) 137 ML/MIN (>60); Globulin 2.2 g/dL (1.3-3.2); Glucose 102 mg/dl (74-100); Sodium 135 mmol/L (136-145); Total Protein,Serum 5.9 g/dl (6.3-8.2)
== END 2023-04-24 08:40 | disposition home or self-care (01) ==
LOC: INF 08:27
PROVIDERS: PCP Internal Medicine; Visit Provider Internal Medicine Medical Oncology
DX: C34.90 Malignant neoplasm of unspecified part of unspecified bronchus or lung (principal); Z45.2 Encounter for adjustment and management of vascular access device
CPT/HCPCS: 80053; 85025; 96523; J1642

== ENCOUNTER 2023-05-01 09:27 | Outpatient (CLI) | payer MEDICARE, SELFPAY ==
[2023-05-01 09:31] VITALS: BMI 26.6
[2023-05-01 09:42] LABS: Basophils % 0.6 % (0.1-2.0); Eosinophils # 0.1 K/mm3 (0.0-0.4); Eosinophils % 1.9 % (0.1-12.0); Hematocrit 33.9 % (42.0-52.0); Hemoglobin 11.2 g/dL (14.1-18.0); Lymphocytes # 1.2 K/mm3 (0.7-4.5); Lymphocytes % 36.5 % (10-50); Mean Corpuscular HGB Conc 33.2 g/dL (31.8-35.4); Mean Corpuscular Hemoglobin 32.7 pg (27.0-31.2); Mean Corpuscular Volume 98.5 fl (80-94); Mean Platelet Volume 9.8 fl (7.4-10.4); Monocytes # 0.6 K/mm3 (0.1-1.0); Neutrophils # 1.4 K/mm3 (1.8-7.8); Platelet Count 233 K/mm3 (142-424); Red Blood Count 3.44 M/mm3 (4.60-6.20); Red Cell Distribution Width 18.7 % (11.5-17.5); White Blood Count 3.2 K/mm3 (4.8-10.8)
[2023-05-01 09:56] LABS: Alanine Aminotransferase 27 U/L (12-78); Albumin Level 3.9 g/dl (3.5-5.0); Albumin/Globulin Ratio 1.8 (1.1-1.8); Alkaline Phosphatase 38 U/L (38-126); Anion Gap 9.1 mEq/L (5-15); Aspartate Amino Transferase 28 U/L (17-59); Bilirubin,Total 0.4 mg/dl (0.2-1.3); Blood Urea Nitrogen 13 mg/dl (9-20); Calcium 8.3 mg/dl (8.4-10.2); Carbon Dioxide 25 mmol/L (22.0-30.0); Chloride 107 mmol/L (98-107); Creatinine Clearance Estimated 77 mL/min (50-200); Estimated Glomerular Filt Rate 75 ml/min (>60); GFR (African American) 90 ML/MIN (>60); Globulin 2.2 g/dL (1.3-3.2); Glucose 94 mg/dl (74-100); Potassium 4.1 mmoL/L (3.5-5.1); Sodium 137 mmol/L (136-145); Total Protein,Serum 6.1 g/dl (6.3-8.2)
[2023-05-01] MEDS: SODIUM CHLORIDE 0.9% 50ML BAG 50 ML IV (10:59)
[2023-05-01] MEDS: DEXAMETHASONE 4MG TABLET 12 MG PO (11:00)
[2023-05-01] MEDS: SODIUM CHLORIDE 0.9% IV (11:23)
[2023-05-01] MEDS: GEMCITABINE HCL IV (11:23)
[2023-05-01 11:30] VITALS: BP 146/81; PULSE 57; RESP 18; TEMP 36.2; O2SAT 97
[2023-05-01] MEDS: SODIUM CHLORIDE 0.9% 10ML FLUSH SYRINGE 10 ML IV (11:30)
[2023-05-01 11:45] VITALS: BP 124/81; PULSE 63; RESP 17
[2023-05-01 12:00] VITALS: BP 127/73; PULSE 51; RESP 17
== END 2023-05-01 12:20 | disposition home or self-care (01) ==
LOC: INF 09:28
PROVIDERS: PCP Internal Medicine; Visit Provider Internal Medicine Medical Oncology
DX: C34.90 Malignant neoplasm of unspecified part of unspecified bronchus or lung (principal); Z45.2 Encounter for adjustment and management of vascular access device
CPT/HCPCS: 80053; 85025; 96413; J1642; J9201

== ENCOUNTER 2023-05-07 11:41 | Outpatient (CLI) | payer MEDICARE, SELFPAY ==
[2023-05-07 12:53] LABS: Amphetamine/Metha Screen,Urine Negative ng/ml (<1000); Barbiturates Screen,Urine Negative ng/ml (<200); Benzodiazepines Screen,Urine Negative ng/ml (<200); Cannabinoid Screen,Urine Negative ng/ml (<50); Cocaine Screen,Urine Negative ng/ml (<300); Methadone Screen,Urine Negative ng/ml (<300); Opiate Screen,Urine Negative ng/ml (<300); Phencyclidine Screen,Urine Negative ng/ml (<25)
== END 2023-05-07 23:59 ==
LOC: LAB.DROPOF 11:42
PROVIDERS: PCP Internal Medicine; Visit Provider Internal Medicine
DX: Z79.899 Other long term (current) drug therapy (principal)
CPT/HCPCS: 80307

== ENCOUNTER 2023-05-08 09:12 | Outpatient (CLI) | payer MEDICARE, SELFPAY ==
[2023-05-08 09:18] VITALS: BMI 27.6
[2023-05-08 09:38] LABS: Basophils % 0.5 % (0.1-2.0); Eosinophils % 0.5 % (0.1-12.0); Hematocrit 35.8 % (42.0-52.0); Hemoglobin 11.8 g/dL (14.1-18.0); Lymphocytes # 0.9 K/mm3 (0.7-4.5); Lymphocytes % 30.4 % (10-50); Mean Corpuscular HGB Conc 32.9 g/dL (31.8-35.4); Mean Corpuscular Hemoglobin 32.2 pg (27.0-31.2); Mean Corpuscular Volume 97.8 fl (80-94); Mean Platelet Volume 9.1 fl (7.4-10.4); Monocytes # 0.3 K/mm3 (0.1-1.0); Monocytes % 9.7 % (1.7-9.3); Neutrophils # 1.8 K/mm3 (1.8-7.8); Neutrophils % 58.9 % (37.0-80.0); Platelet Count 123 K/mm3 (142-424); Red Blood Count 3.66 M/mm3 (4.60-6.20); Red Cell Distribution Width 18.1 % (11.5-17.5); White Blood Count 3.1 K/mm3 (4.8-10.8)
[2023-05-08 10:03] LABS: Alanine Aminotransferase 28 U/L (12-78); Albumin/Globulin Ratio 1.9 (1.1-1.8); Alkaline Phosphatase 42 U/L (38-126); Anion Gap 7.7 mEq/L (5-15); Aspartate Amino Transferase 35 U/L (17-59); Bilirubin,Total 0.3 mg/dl (0.2-1.3); Blood Urea Nitrogen 12 mg/dl (9-20); Calcium 8.8 mg/dl (8.4-10.2); Carbon Dioxide 28 mmol/L (22.0-30.0); Chloride 106 mmol/L (98-107); Creatinine Clearance Estimated 80 mL/min (50-200); Estimated Glomerular Filt Rate 84 ml/min (>60); GFR (African American) 102 ML/MIN (>60); Globulin 2.1 g/dL (1.3-3.2); Glucose 78 mg/dl (74-100); Potassium 3.7 mmoL/L (3.5-5.1); Sodium 138 mmol/L (136-145); Total Protein,Serum 6.1 g/dl (6.3-8.2)
[2023-05-08] MEDS: DEXAMETHASONE 4MG TABLET 12 MG PO (10:30)
[2023-05-08] MEDS: GEMCITABINE HCL IV (10:35)
[2023-05-08] MEDS: SODIUM CHLORIDE 0.9% IV (10:35)
[2023-05-08] MEDS: SODIUM CHLORIDE 0.9% 50ML BAG 50 ML IV (10:35)
[2023-05-08 10:46] VITALS: BP 116/51; PULSE 71; O2SAT 97
[2023-05-08 11:00] VITALS: BP 120/72; PULSE 68
[2023-05-08] MEDS: SODIUM CHLORIDE 0.9% 10ML FLUSH SYRINGE 10 ML IV (11:15)
[2023-05-08 11:20] VITALS: BP 120/62; PULSE 74
== END 2023-05-08 11:25 | disposition home or self-care (01) ==
LOC: INF 09:13
PROVIDERS: PCP Internal Medicine; Visit Provider Internal Medicine Medical Oncology
DX: J98.4 Other disorders of lung (principal); Z51.11 Encounter for antineoplastic chemotherapy; C34.31 Malignant neoplasm of lower lobe, right bronchus or lung; Z45.2 Encounter for adjustment and management of vascular access device; Z87.891 Personal history of nicotine dependence
CPT/HCPCS: 80053; 85025; 96413; J1642; J9201

== ENCOUNTER 2023-05-15 09:38 | Outpatient (CLI) | payer MEDICARE, SELFPAY ==
[2023-05-15 09:40] VITALS: BMI 27.6
[2023-05-15 10:04] LABS: Basophils % 0.4 % (0.1-2.0); Eosinophils % 0.2 % (0.1-12.0); Hematocrit 33.7 % (42.0-52.0); Hemoglobin 11.4 g/dL (14.1-18.0); Lymphocytes # 0.8 K/mm3 (0.7-4.5); Mean Corpuscular HGB Conc 33.9 g/dL (31.8-35.4); Mean Corpuscular Volume 97.3 fl (80-94); Mean Platelet Volume 9.4 fl (7.4-10.4); Monocytes # 0.3 K/mm3 (0.1-1.0); Monocytes % 6.5 % (1.7-9.3); Neutrophils # 2.9 K/mm3 (1.8-7.8); Neutrophils % 71.9 % (37.0-80.0); Platelet Count 64 K/mm3 (142-424); Red Blood Count 3.46 M/mm3 (4.60-6.20); Red Cell Distribution Width 18.6 % (11.5-17.5)
[2023-05-15 10:06] LABS: Alanine Aminotransferase 37 U/L (12-78); Albumin/Globulin Ratio 1.8 (1.1-1.8); Alkaline Phosphatase 40 U/L (38-126); Anion Gap 9.2 mEq/L (5-15); Aspartate Amino Transferase 35 U/L (17-59); Bilirubin,Total 0.4 mg/dl (0.2-1.3); Blood Urea Nitrogen 12 mg/dl (9-20); Calcium 8.7 mg/dl (8.4-10.2); Carbon Dioxide 27 mmol/L (22.0-30.0); Chloride 108 mmol/L (98-107); Creatinine Clearance Estimated 80 mL/min (50-200); Estimated Glomerular Filt Rate 97 ml/min (>60); GFR (African American) 117 ML/MIN (>60); Globulin 2.2 g/dL (1.3-3.2); Glucose 113 mg/dl (74-100); Potassium 4.2 mmoL/L (3.5-5.1); Sodium 140 mmol/L (136-145); Total Protein,Serum 6.2 g/dl (6.3-8.2)
[2023-05-15] MEDS: DEXAMETHASONE 4MG TABLET 12 MG (10:09)
[2023-05-15] MEDS: SODIUM CHLORIDE 0.9% 10ML FLUSH SYRINGE 10 ML IV (10:25)
== END 2023-05-15 10:25 | disposition home or self-care (01) ==
LOC: INF 09:39
PROVIDERS: PCP Internal Medicine; Visit Provider Internal Medicine Medical Oncology
DX: C34.31 Malignant neoplasm of lower lobe, right bronchus or lung (principal); Z45.2 Encounter for adjustment and management of vascular access device
CPT/HCPCS: 36591; 80053; 85025; J1642

== ENCOUNTER 2023-05-29 09:22 | Outpatient (CLI) | payer MEDICARE, SELFPAY ==
[2023-05-29 09:24] VITALS: BMI 26.9
[2023-05-29 09:39] LABS: Basophils % 0.3 % (0.1-2.0); Eosinophils # 0.1 K/mm3 (0.0-0.4); Eosinophils % 0.6 % (0.1-12.0); Hematocrit 36.8 % (42.0-52.0); Lymphocytes # 1.2 K/mm3 (0.7-4.5); Lymphocytes % 12.5 % (10-50); Mean Corpuscular HGB Conc 35.3 g/dL (31.8-35.4); Mean Corpuscular Hemoglobin 35.2 pg (27.0-31.2); Mean Corpuscular Volume 99.7 fl (80-94); Mean Platelet Volume 8.6 fl (7.4-10.4); Monocytes # 0.8 K/mm3 (0.1-1.0); Monocytes % 8.6 % (1.7-9.3); Neutrophils # 7.3 K/mm3 (1.8-7.8); Platelet Count 231 K/mm3 (142-424); Red Blood Count 3.69 M/mm3 (4.60-6.20); Red Cell Distribution Width 18.7 % (11.5-17.5); White Blood Count 9.3 K/mm3 (4.8-10.8)
[2023-05-29 09:48] LABS: Chloride 106 mmol/L (98-107); Sodium 137 mmol/L (136-145)
[2023-05-29 09:50] LABS: Blood Urea Nitrogen 12 mg/dl (9-20); Creatinine Clearance Estimated 78 mL/min (50-200); Estimated Glomerular Filt Rate 113 ml/min (>60); GFR (African American) 137 ML/MIN (>60)
[2023-05-29 09:51] LABS: Alanine Aminotransferase 23 U/L (12-78); Albumin Level 4.4 g/dl (3.5-5.0); Albumin/Globulin Ratio 1.8 (1.1-1.8); Alkaline Phosphatase 45 U/L (38-126); Aspartate Amino Transferase 26 U/L (17-59); Bilirubin,Total 0.5 mg/dl (0.2-1.3); Calcium 9.2 mg/dl (8.4-10.2); Carbon Dioxide 24 mmol/L (22.0-30.0); Globulin 2.5 g/dL (1.3-3.2); Glucose 128 mg/dl (74-100); Total Protein,Serum 6.9 g/dl (6.3-8.2)
[2023-05-29] MEDS: DEXAMETHASONE 4MG TABLET 12 MG PO (10:40)
[2023-05-29] MEDS: SODIUM CHLORIDE 0.9% IV (11:04)
[2023-05-29] MEDS: GEMCITABINE HCL IV (11:04)
[2023-05-29 11:15] VITALS: BP 178/80; PULSE 74; RESP 18; TEMP 36.7; O2SAT 98
[2023-05-29 11:30] VITALS: BP 177/79; PULSE 78
[2023-05-29 11:45] VITALS: BP 183/87; PULSE 77
[2023-05-29] MEDS: SODIUM CHLORIDE 0.9% 10ML FLUSH SYRINGE 10 ML IV (11:52)
[2023-05-29] MEDS: SODIUM CHLORIDE 0.9% 50ML BAG 50 ML IV (11:53)
== END 2023-05-29 11:55 | disposition home or self-care (01) ==
LOC: INF 09:23
PROVIDERS: PCP Internal Medicine; Visit Provider Internal Medicine Medical Oncology
DX: C34.31 Malignant neoplasm of lower lobe, right bronchus or lung (principal); Z45.2 Encounter for adjustment and management of vascular access device; Z79.899 Other long term (current) drug therapy; Z51.11 Encounter for antineoplastic chemotherapy
CPT/HCPCS: 80053; 85025; 96413; J1642; J9201

== ENCOUNTER 2023-06-05 09:18 | Outpatient (CLI) | payer MEDICARE, SELFPAY ==
[2023-06-05 09:20] VITALS: BMI 26.4
[2023-06-05 09:33] LABS: Basophils % 0.3 % (0.1-2.0); Eosinophils # 0.1 K/mm3 (0.0-0.4); Eosinophils % 1.3 % (0.1-12.0); Hematocrit 37.8 % (42.0-52.0); Hemoglobin 12.5 g/dL (14.1-18.0); Lymphocytes # 0.9 K/mm3 (0.7-4.5); Lymphocytes % 21.5 % (10-50); Mean Corpuscular HGB Conc 33.1 g/dL (31.8-35.4); Mean Corpuscular Hemoglobin 33.1 pg (27.0-31.2); Mean Corpuscular Volume 99.9 fl (80-94); Mean Platelet Volume 8.8 fl (7.4-10.4); Monocytes # 0.4 K/mm3 (0.1-1.0); Neutrophils # 2.8 K/mm3 (1.8-7.8); Neutrophils % 66.9 % (37.0-80.0); Platelet Count 127 K/mm3 (142-424); Red Blood Count 3.78 M/mm3 (4.60-6.20); Red Cell Distribution Width 18.2 % (11.5-17.5); White Blood Count 4.2 K/mm3 (4.8-10.8)
[2023-06-05 09:38] LABS: Chloride 106 mmol/L (98-107); Sodium 137 mmol/L (136-145)
[2023-06-05 09:40] LABS: Blood Urea Nitrogen 15 mg/dl (9-20); Creatinine Clearance Estimated 76 mL/min (50-200); Estimated Glomerular Filt Rate 113 ml/min (>60); GFR (African American) 137 ML/MIN (>60)
[2023-06-05 09:41] LABS: Alanine Aminotransferase 29 U/L (12-78); Albumin Level 4.1 g/dl (3.5-5.0); Albumin/Globulin Ratio 1.8 (1.1-1.8); Alkaline Phosphatase 40 U/L (38-126); Aspartate Amino Transferase 29 U/L (17-59); Bilirubin,Total 0.4 mg/dl (0.2-1.3); Carbon Dioxide 27 mmol/L (22.0-30.0); Globulin 2.3 g/dL (1.3-3.2); Glucose 122 mg/dl (74-100); Total Protein,Serum 6.4 g/dl (6.3-8.2)
[2023-06-05] MEDS: DEXAMETHASONE 4MG TABLET 12 MG (09:55)
[2023-06-05] MEDS: 0.9 % SODIUM CHLORIDE 50 ML 100 ML IV (09:56)
[2023-06-05] MEDS: SODIUM CHLORIDE 0.9% IV (12:04)
[2023-06-05] MEDS: GEMCITABINE HCL IV (12:04)
[2023-06-05 12:07] VITALS: BP 128/72; PULSE 61; RESP 18; TEMP 36.9; O2SAT 98
[2023-06-05] MEDS: SODIUM CHLORIDE 0.9% 10ML FLUSH SYRINGE 10 ML IV (12:45)
[2023-06-05 12:50] VITALS: BP 138/69; PULSE 56; RESP 18; O2SAT 98
== END 2023-06-05 23:59 | disposition home or self-care (01) ==
PROVIDERS: PCP Internal Medicine; Visit Provider Internal Medicine Medical Oncology
DX: C34.31 Malignant neoplasm of lower lobe, right bronchus or lung; Z45.2 Encounter for adjustment and management of vascular access device
CPT/HCPCS: 80053; 85025; 96413; J1642; J9201

== ENCOUNTER 2023-06-19 09:08 | Outpatient (CLI) | payer MEDICARE, SELFPAY ==
[2023-06-19 09:10] VITALS: BMI 26.9
[2023-06-19 09:25] LABS: Basophils % 0.1 % (0.1-2.0); Eosinophils # 0.1 K/mm3 (0.0-0.4); Eosinophils % 0.8 % (0.1-12.0); Hematocrit 36.8 % (42.0-52.0); Hemoglobin 12.1 g/dL (14.1-18.0); Lymphocytes # 1.2 K/mm3 (0.7-4.5); Lymphocytes % 12.6 % (10-50); Mean Corpuscular HGB Conc 32.8 g/dL (31.8-35.4); Mean Corpuscular Volume 103.9 fl (80-94); Mean Platelet Volume 9.4 fl (7.4-10.4); Monocytes # 0.6 K/mm3 (0.1-1.0); Monocytes % 6.7 % (1.7-9.3); Neutrophils # 7.7 K/mm3 (1.8-7.8); Neutrophils % 79.9 % (37.0-80.0); Platelet Count 154 K/mm3 (142-424); Red Blood Count 3.55 M/mm3 (4.60-6.20); Red Cell Distribution Width 18.8 % (11.5-17.5); White Blood Count 9.6 K/mm3 (4.8-10.8)
[2023-06-19 09:32] LABS: Chloride 109 mmol/L (98-107); Potassium 4.2 mmoL/L (3.5-5.1); Sodium 139 mmol/L (136-145)
[2023-06-19 09:34] LABS: Alanine Aminotransferase 37 U/L (12-78); Aspartate Amino Transferase 32 U/L (17-59); Blood Urea Nitrogen 12 mg/dl (9-20); Creatinine Clearance Estimated 78 mL/min (50-200); Estimated Glomerular Filt Rate 97 ml/min (>60); GFR (African American) 117 ML/MIN (>60)
[2023-06-19 09:35] LABS: Albumin/Globulin Ratio 1.9 (1.1-1.8); Alkaline Phosphatase 45 U/L (38-126); Anion Gap 4.2 mEq/L (5-15); Bilirubin,Total 0.2 mg/dl (0.2-1.3); Calcium 8.9 mg/dl (8.4-10.2); Carbon Dioxide 30 mmol/L (22.0-30.0); Globulin 2.1 g/dL (1.3-3.2); Glucose 113 mg/dl (74-100); Total Protein,Serum 6.1 g/dl (6.3-8.2)
[2023-06-19 09:55] VITALS: BP 159/76; PULSE 63; RESP 18; TEMP 36.9; O2SAT 98
[2023-06-19] MEDS: 0.9 % SODIUM CHLORIDE 50 ML IV (09:55)
[2023-06-19] MEDS: DEXAMETHASONE 4MG TABLET 12 MG (09:55)
[2023-06-19] MEDS: SODIUM CHLORIDE 0.9% 10ML FLUSH SYRINGE 10 ML IV (10:03)
[2023-06-19 10:22] VITALS: BP 138/66; PULSE 55; RESP 18; O2SAT 98
[2023-06-19] MEDS: GEMCITABINE HCL IV (10:22)
[2023-06-19] MEDS: SODIUM CHLORIDE 0.9% IV (10:22)
[2023-06-19 11:05] VITALS: BP 129/68; PULSE 59; RESP 18; O2SAT 97
== END 2023-06-19 11:05 | disposition home or self-care (01) ==
LOC: INF 09:09
PROVIDERS: PCP Internal Medicine; Visit Provider Internal Medicine Medical Oncology
DX: C79.51 Secondary malignant neoplasm of bone (principal); C34.31 Malignant neoplasm of lower lobe, right bronchus or lung; Z45.2 Encounter for adjustment and management of vascular access device; Z51.11 Encounter for antineoplastic chemotherapy
CPT/HCPCS: 80053; 85025; 96413; J1642; J9201

== ENCOUNTER 2023-06-26 08:47 | Outpatient (CLI) | payer MEDICARE, SELFPAY ==
[2023-06-26 08:51] VITALS: BMI 26.8
[2023-06-26 09:11] LABS: Basophils % 0.1 % (0.1-2.0); Eosinophils # 0.1 K/mm3 (0.0-0.4); Eosinophils % 1.4 % (0.1-12.0); Hematocrit 36.9 % (42.0-52.0); Hemoglobin 11.8 g/dL (14.1-18.0); Lymphocytes % 30.5 % (10-50); Mean Corpuscular Hemoglobin 32.9 pg (27.0-31.2); Mean Platelet Volume 9.1 fl (7.4-10.4); Monocytes # 0.4 K/mm3 (0.1-1.0); Monocytes % 11.8 % (1.7-9.3); Neutrophils # 1.9 K/mm3 (1.8-7.8); Neutrophils % 56.2 % (37.0-80.0); Platelet Count 151 K/mm3 (142-424); Red Blood Count 3.59 M/mm3 (4.60-6.20); Red Cell Distribution Width 18.1 % (11.5-17.5); White Blood Count 3.4 K/mm3 (4.8-10.8)
[2023-06-26 09:26] LABS: Alanine Aminotransferase 49 U/L (12-78); Albumin Level 3.9 g/dl (3.5-5.0); Albumin/Globulin Ratio 1.6 (1.1-1.8); Alkaline Phosphatase 53 U/L (38-126); Anion Gap 10.5 mEq/L (5-15); Aspartate Amino Transferase 35 U/L (17-59); Bilirubin,Total 0.2 mg/dl (0.2-1.3); Blood Urea Nitrogen 12 mg/dl (9-20); Calcium 9.1 mg/dl (8.4-10.2); Carbon Dioxide 25 mmol/L (22.0-30.0); Chloride 108 mmol/L (98-107); Creatinine Clearance Estimated 77 mL/min (50-200); Estimated Glomerular Filt Rate 84 ml/min (>60); GFR (African American) 102 ML/MIN (>60); Globulin 2.4 g/dL (1.3-3.2); Glucose 100 mg/dl (74-100); Potassium 4.5 mmoL/L (3.5-5.1); Sodium 139 mmol/L (136-145); Total Protein,Serum 6.3 g/dl (6.3-8.2)
[2023-06-26 09:40] VITALS: BP 105/64; PULSE 61; RESP 18; TEMP 36.6; O2SAT 98
[2023-06-26] MEDS: DEXAMETHASONE 4MG TABLET 12 MG PO (09:40)
[2023-06-26] MEDS: SODIUM CHLORIDE 0.9% 50ML BAG 50 ML IV (09:40)
[2023-06-26] MEDS: SODIUM CHLORIDE 0.9% 10ML FLUSH SYRINGE 10 ML IV (09:41)
[2023-06-26 10:01] VITALS: BP 118/64; PULSE 54; RESP 18; O2SAT 98
[2023-06-26] MEDS: GEMCITABINE HCL IV (10:01)
[2023-06-26] MEDS: SODIUM CHLORIDE 0.9% IV (10:01)
[2023-06-26 10:50] VITALS: BP 112/69; PULSE 58; RESP 18; O2SAT 98
== END 2023-06-26 10:50 | disposition home or self-care (01) ==
LOC: INF 08:48
PROVIDERS: PCP Internal Medicine; Visit Provider Internal Medicine Medical Oncology
DX: C34.31 Malignant neoplasm of lower lobe, right bronchus or lung (principal); Z79.899 Other long term (current) drug therapy
CPT/HCPCS: 80053; 85025; 96413; J1642; J9201

== ENCOUNTER 2023-07-08 08:42 | Outpatient (CLI) | payer MEDICARE, SELFPAY ==
[2023-07-08 08:35] VITALS: BMI 27.1
--- NOTE | 2023-07-08 08:50 | CT_ITS ---
FINAL REPORT CLINICAL HISTORY: LUNG CANCER hx lung cancer, states it has spread to liver and femur COMPARISON: 03/25/2023 FINDINGS: CT OF THE ABDOMEN AND PELVIS WITH CONTRAST Axial CT images of the abdomen and pelvis were obtained after the administration of oral and iv contrast. Coronal reformatted images were also obtained and reviewed.This study was performed with techniques to keep radiation doses as low as reasonably achievable (ALARA). Individualized dose reduction techniques using automated exposure control or adjustment of mA and/or kV according to the patient's size were employed. Abdomen: There is a 16 mm mass in the medial right hepatic lobe, previously measured 12 mm. There is a new mass in the anterior segment of the right hepatic lobe lateral to the gallbladder fossa measuring 19 mm and consistent with a new metastasis. There is mild nonspecific gallbladder wall thickening. The spleen is unremarkable. No adrenal mass is present. There is a 6 mm lipoma in the pancreatic body which is stable. The kidneys are normal, without evidence of mass or hydronephrosis. The aorta is normal in caliber. There are moderate vascular calcifications. There is no free fluid or adenopathy. No mass or abnormal fluid collection is seen. Pelvis: The appendix normal. There are several sigmoid diverticula. The urinary bladder is unremarkable. No inflammatory process is seen. There is no evidence of mass or adenopathy. There is no evidence of bowel obstruction. Postoperative change from left hip arthroplasty. IMPRESSION: Interval increase medial right hepatic lobe 16 mm mass with new 19 mm right hepatic lobe mass lateral to the gallbladder fossa. Findings consistent with metastasis. Reviewed, Interpreted and Dictated by Rishi Booker III, MD Transcribed by Maria Isabel Padilla Authenticated and [facility]
--- NOTE | 2023-07-08 08:51 | CT_ITS ---
FINAL REPORT CLINICAL HISTORY: LUNG CANCER hx lung cancer, states it has spread to liver and femur COMPARISON: 03/25/2023 FINDINGS: Axial CT images of the chest were obtained with contrast. Coronal reformatted images were also obtained. This study was performed with techniques to keep radiation doses as low as reasonably achievable, (ALARA). Individualized dose reduction techniques using automated exposure control or adjustment of mA and/or KV according to the patients' size were employed. There is a right-sided chest port. There is no evidence of mediastinal or hilar mass or adenopathy.No axillary mass or adenopathy is identified. Prior median sternotomy. There is moderate stenosis of the proximal left subclavian artery. Again noted is the anterior right lower lobe mass measuring 36 x 28 mm, not significantly changed. Left lower lobe nodule is stable at 8 mm and best seen on image 45. There is mild emphysema and mild scarring. There are several other less than 5 mm lung nodules which are also stable. IMPRESSION: Stable right lower lobe mass. Stable lung nodules as above. Reviewed, Interpreted and Dictated by Rishi Booker III, MD Transcribed by Maria Isabel Padilla Authenticated and [facility]
[2023-07-08 09:14] LABS: Basophils % 0.1 % (0.1-2.0); Eosinophils # 0.1 K/mm3 (0.0-0.4); Eosinophils % 0.5 % (0.1-12.0); Hematocrit 34.4 % (42.0-52.0); Hemoglobin 11.3 g/dL (14.1-18.0); Lymphocytes # 1.1 K/mm3 (0.7-4.5); Mean Corpuscular HGB Conc 32.7 g/dL (31.8-35.4); Mean Corpuscular Volume 103.7 fl (80-94); Mean Platelet Volume 9.5 fl (7.4-10.4); Monocytes # 0.7 K/mm3 (0.1-1.0); Monocytes % 6.9 % (1.7-9.3); Neutrophils # 7.8 K/mm3 (1.8-7.8); Neutrophils % 81.5 % (37.0-80.0); Platelet Count 114 K/mm3 (142-424); Red Blood Count 3.32 M/mm3 (4.60-6.20); Red Cell Distribution Width 19.1 % (11.5-17.5); White Blood Count 9.6 K/mm3 (4.8-10.8)
[2023-07-08 09:21] LABS: Alanine Aminotransferase 56 U/L (12-78); Aspartate Amino Transferase 34 U/L (17-59); Blood Urea Nitrogen 16 mg/dl (9-20); Calcium 8.9 mg/dl (8.4-10.2); Carbon Dioxide 24 mmol/L (22.0-30.0); Creatinine Clearance Estimated 78 mL/min (50-200); Estimated Glomerular Filt Rate 113 ml/min (>60); GFR (African American) 137 ML/MIN (>60); Glucose 99 mg/dl (74-100); Potassium 4.1 mmoL/L (3.5-5.1)
[2023-07-08] MEDS: BARIUM SULFATE(READI-CAT2);450ML BOTTLE 450 ML PO (09:39)
[2023-07-08] MEDS: IOPAMIDOL-370 (76%);100ML BOTTLE 75 ML IV (09:40)
[2023-07-08] MEDS: SODIUM CHLORIDE 0.9% 10ML SYR (RAD ONLY) 10 ML IV (09:40)
[2023-07-08] MEDS: SODIUM CHLORIDE 0.9% 10ML FLUSH SYRINGE 10 ML IV (09:54)
[2023-07-08 10:08] LABS: Albumin Level 4.2 g/dl (3.5-5.0); Alkaline Phosphatase 55 U/L (38-126); Anion Gap 11.1 mEq/L (5-15); Bilirubin,Total 0.2 mg/dl (0.2-1.3); Chloride 108 mmol/L (98-107); Globulin 2.1 g/dL (1.3-3.2); Sodium 139 mmol/L (136-145); Total Protein,Serum 6.3 g/dl (6.3-8.2)
== END 2023-07-08 09:54 | disposition home or self-care (01) ==
LOC: INF 08:44
PROVIDERS: PCP Internal Medicine Medical Oncology; Visit Provider Internal Medicine Medical Oncology
DX: C34.31 Malignant neoplasm of lower lobe, right bronchus or lung (principal); Z79.899 Other long term (current) drug therapy
CPT/HCPCS: 36591; 71260; 74177; 80053; 85025; J1642; Q9967

== ENCOUNTER 2023-07-17 09:22 | Outpatient (CLI) | payer MEDICARE, SELFPAY ==
[2023-07-17 09:26] VITALS: BMI 26.6
[2023-07-17 09:46] LABS: Basophils % 0.2 % (0.1-2.0); Eosinophils # 0.1 K/mm3 (0.0-0.4); Eosinophils % 0.5 % (0.1-12.0); Hematocrit 38.4 % (42.0-52.0); Hemoglobin 12.3 g/dL (14.1-18.0); Lymphocytes % 9.9 % (10-50); Mean Corpuscular HGB Conc 31.9 g/dL (31.8-35.4); Mean Corpuscular Hemoglobin 33.8 pg (27.0-31.2); Mean Corpuscular Volume 106.1 fl (80-94); Mean Platelet Volume 9.8 fl (7.4-10.4); Neutrophils # 8.9 K/mm3 (1.8-7.8); Neutrophils % 89.4 % (37.0-80.0); Platelet Count 229 K/mm3 (142-424); Red Blood Count 3.62 M/mm3 (4.60-6.20)
[2023-07-17 10:02] LABS: Alanine Aminotransferase 20 U/L (12-78); Albumin Level 4.2 g/dl (3.5-5.0); Albumin/Globulin Ratio 1.8 (1.1-1.8); Alkaline Phosphatase 55 U/L (38-126); Anion Gap 8.9 mEq/L (5-15); Aspartate Amino Transferase 23 U/L (17-59); Bilirubin,Total 0.3 mg/dl (0.2-1.3); Blood Urea Nitrogen 15 mg/dl (9-20); Calcium 9.3 mg/dl (8.4-10.2); Carbon Dioxide 25 mmol/L (22.0-30.0); Chloride 108 mmol/L (98-107); Creatinine Clearance Estimated 77 mL/min (50-200); Estimated Glomerular Filt Rate 97 ml/min (>60); GFR (African American) 117 ML/MIN (>60); Globulin 2.4 g/dL (1.3-3.2); Glucose 131 mg/dl (74-100); Potassium 3.9 mmoL/L (3.5-5.1); Sodium 138 mmol/L (136-145); Total Protein,Serum 6.6 g/dl (6.3-8.2)
[2023-07-17 10:07] VITALS: BP 106/70; PULSE 69; RESP 18; TEMP 36.4; O2SAT 98
[2023-07-17] MEDS: ONDANSETRON 4MG ODT 16 MG (10:07)
[2023-07-17] MEDS: DEXAMETHASONE 4MG TABLET 12 MG (10:07)
[2023-07-17] MEDS: 0.9 % SODIUM CHLORIDE 50 ML IV (10:07)
[2023-07-17 10:12] LABS: MANUAL DIFFERENTIAL MANUAL DIFFERENTIAL (MANUAL DIFF)
[2023-07-17 10:31] LABS: Lymphocytes % 9 % (10-50); Monocytes % 9 % (2-9); Neutrophils % 82 % (42-76); Total Cells Counted 100
[2023-07-17 10:32] LABS: Macrocytosis 1+; Platelet Estimate Normal; RBC Morphology Normal
[2023-07-17] MEDS: APREPITANT 125MG/80MG TRIFOLD PACK 1 PACKET PO (10:55)
[2023-07-17 11:01] VITALS: BP 120/77; PULSE 62; RESP 18; O2SAT 98
[2023-07-17 11:42] VITALS: BP 113/62; PULSE 58; RESP 18; O2SAT 98
[2023-07-17 12:12] VITALS: BP 111/60; PULSE 60; RESP 18; O2SAT 98
[2023-07-17] MEDS: SODIUM CHLORIDE 0.9% 10ML FLUSH SYRINGE 10 ML IV (12:22)
[2023-07-17 12:42] VITALS: BP 109/69; PULSE 58; RESP 18; O2SAT 97
[2023-07-17 13:00] VITALS: BP 114/62; PULSE 62; RESP 18; O2SAT 98
== END 2023-07-17 13:05 | disposition home or self-care (01) ==
LOC: INF 09:23
PROVIDERS: PCP Internal Medicine; Visit Provider Internal Medicine Medical Oncology
DX: C34.31 Malignant neoplasm of lower lobe, right bronchus or lung (principal); C79.51 Secondary malignant neoplasm of bone; Z79.899 Other long term (current) drug therapy; Z87.891 Personal history of nicotine dependence
CPT/HCPCS: 80053; 85007; 85025; 96413; 96415; 96417; J1642; J8501; J9045; J9181

== ENCOUNTER 2023-07-18 08:14 | Outpatient (CLI) | payer MEDICARE, SELFPAY ==
[2023-07-18] MEDS: 0.9 % SODIUM CHLORIDE 50 ML 100 ML IV (08:18)
[2023-07-18] MEDS: DEXAMETHASONE 4MG TABLET 12 MG (08:19)
[2023-07-18 08:53] VITALS: BP 133/60; PULSE 66; RESP 18; O2SAT 96
[2023-07-18 09:20] VITALS: BP 158/71; PULSE 56; RESP 18
[2023-07-18] MEDS: SODIUM CHLORIDE 0.9% 10ML FLUSH SYRINGE 10 ML IV (10:00)
[2023-07-18 10:06] VITALS: BP 167/57; PULSE 72; RESP 16; O2SAT 100
== END 2023-07-18 10:06 | disposition home or self-care (01) ==
LOC: INF 08:15
PROVIDERS: PCP Internal Medicine; Visit Provider Internal Medicine Medical Oncology
DX: C34.31 Malignant neoplasm of lower lobe, right bronchus or lung (principal); C79.9 Secondary malignant neoplasm of unspecified site; C79.51 Secondary malignant neoplasm of bone
CPT/HCPCS: 96413; J1642; J9181

== ENCOUNTER 2023-07-19 08:43 | Outpatient (CLI) | payer MEDICARE, SELFPAY ==
[2023-07-19] MEDS: DEXAMETHASONE 4MG TABLET 12 MG PO (08:47)
[2023-07-19 09:25] VITALS: BP 145/87; PULSE 77; RESP 18; TEMP 36.8; O2SAT 97
[2023-07-19 09:40] VITALS: BP 138/67; PULSE 81
[2023-07-19 09:55] VITALS: BP 143/71; PULSE 79
[2023-07-19 10:25] VITALS: BP 164/78; PULSE 76
[2023-07-19] MEDS: SODIUM CHLORIDE 0.9% 10ML FLUSH SYRINGE 10 ML IV (10:45)
== END 2023-07-19 10:45 | disposition home or self-care (01) ==
LOC: INF 08:44
PROVIDERS: PCP Internal Medicine; Visit Provider Internal Medicine Medical Oncology
DX: C34.31 Malignant neoplasm of lower lobe, right bronchus or lung (principal); C79.9 Secondary malignant neoplasm of unspecified site
CPT/HCPCS: 96413; J1642; J9181

== ENCOUNTER 2023-07-23 13:40 | Outpatient (CLI) | payer MEDICARE, SELFPAY ==
[2023-07-23 13:41] VITALS: BMI 26.5
[2023-07-23] MEDS: SODIUM CHLORIDE 0.9% 10ML FLUSH SYRINGE 10 ML IV (13:55)
[2023-07-23 14:16] LABS: Basophils % 0.2 % (0.1-2.0); Eosinophils # 0.1 K/mm3 (0.0-0.4); Eosinophils % 1.6 % (0.1-12.0); Hematocrit 38.9 % (42.0-52.0); Hemoglobin 12.6 g/dL (14.1-18.0); Lymphocytes # 1.5 K/mm3 (0.7-4.5); Lymphocytes % 15.8 % (10-50); Mean Corpuscular HGB Conc 32.4 g/dL (31.8-35.4); Mean Corpuscular Hemoglobin 33.6 pg (27.0-31.2); Mean Corpuscular Volume 103.7 fl (80-94); Mean Platelet Volume 9.6 fl (7.4-10.4); Monocytes # 0.2 K/mm3 (0.1-1.0); Monocytes % 1.7 % (1.7-9.3); Neutrophils # 7.5 K/mm3 (1.8-7.8); Neutrophils % 80.8 % (37.0-80.0); Platelet Count 165 K/mm3 (142-424); Red Blood Count 3.76 M/mm3 (4.60-6.20); Red Cell Distribution Width 16.9 % (11.5-17.5); White Blood Count 9.3 K/mm3 (4.8-10.8)
== END 2023-07-23 13:55 | disposition home or self-care (01) ==
LOC: INF 13:41
PROVIDERS: PCP Internal Medicine; Visit Provider Internal Medicine Medical Oncology
DX: C34.31 Malignant neoplasm of lower lobe, right bronchus or lung (principal)
CPT/HCPCS: 36591; 85025; J1642

== ENCOUNTER 2023-07-30 12:50 | Outpatient (CLI) | payer MEDICARE, SELFPAY ==
[2023-07-30 12:53] VITALS: BMI 26.6
[2023-07-30] MEDS: SODIUM CHLORIDE 0.9% 10ML FLUSH SYRINGE 10 ML IV (13:10)
[2023-07-30 13:18] LABS: Basophils % 0.5 % (0.1-2.0); Eosinophils % 0.4 % (0.1-12.0); Hemoglobin 10.7 g/dL (14.1-18.0); Lymphocytes # 0.9 K/mm3 (0.7-4.5); Lymphocytes % 34.5 % (10-50); Mean Corpuscular HGB Conc 32.4 g/dL (31.8-35.4); Mean Corpuscular Hemoglobin 32.8 pg (27.0-31.2); Mean Corpuscular Volume 101.3 fl (80-94); Mean Platelet Volume 10.3 fl (7.4-10.4); Monocytes # 0.3 K/mm3 (0.1-1.0); Monocytes % 12.5 % (1.7-9.3); Neutrophils # 1.3 K/mm3 (1.8-7.8); Neutrophils % 52.1 % (37.0-80.0); Platelet Count 100 K/mm3 (142-424); Red Blood Count 3.26 M/mm3 (4.60-6.20); Red Cell Distribution Width 16.5 % (11.5-17.5); White Blood Count 2.5 K/mm3 (4.8-10.8)
== END 2023-07-30 13:10 | disposition home or self-care (01) ==
LOC: INF 12:50
PROVIDERS: PCP Internal Medicine; Visit Provider Internal Medicine Medical Oncology
DX: C34.31 Malignant neoplasm of lower lobe, right bronchus or lung (principal)
CPT/HCPCS: 36591; 85025; J1642

== ENCOUNTER 2023-08-07 08:51 | Outpatient (CLI) | payer MEDICARE, SELFPAY ==
[2023-08-07 08:57] VITALS: BMI 26.6
[2023-08-07 09:17] LABS: Basophils % 0.4 % (0.1-2.0); Eosinophils # 0.1 K/mm3 (0.0-0.4); Eosinophils % 0.7 % (0.1-12.0); Hematocrit 39.4 % (42.0-52.0); Hemoglobin 12.5 g/dL (14.1-18.0); Lymphocytes # 1.2 K/mm3 (0.7-4.5); Lymphocytes % 15.3 % (10-50); Mean Corpuscular HGB Conc 31.7 g/dL (31.8-35.4); Mean Corpuscular Hemoglobin 32.5 pg (27.0-31.2); Mean Corpuscular Volume 102.3 fl (80-94); Monocytes # 0.9 K/mm3 (0.1-1.0); Neutrophils # 5.6 K/mm3 (1.8-7.8); Neutrophils % 72.5 % (37.0-80.0); Platelet Count 215 K/mm3 (142-424); Red Blood Count 3.85 M/mm3 (4.60-6.20); Red Cell Distribution Width 16.6 % (11.5-17.5); White Blood Count 7.7 K/mm3 (4.8-10.8)
[2023-08-07 09:27] LABS: Chloride 108 mmol/L (98-107); Sodium 140 mmol/L (136-145)
[2023-08-07 09:28] LABS: Potassium 4.1 mmoL/L (3.5-5.1)
[2023-08-07 09:30] LABS: Alanine Aminotransferase 19 U/L (12-78); Albumin Level 4.1 g/dl (3.5-5.0); Albumin/Globulin Ratio 1.7 (1.1-1.8); Alkaline Phosphatase 64 U/L (38-126); Anion Gap 8.1 mEq/L (5-15); Aspartate Amino Transferase 23 U/L (17-59); Bilirubin,Total 0.3 mg/dl (0.2-1.3); Blood Urea Nitrogen 15 mg/dl (9-20); Carbon Dioxide 28 mmol/L (22.0-30.0); Creatinine Clearance Estimated 77 mL/min (50-200); Estimated Glomerular Filt Rate 113 ml/min (>60); GFR (African American) 137 ML/MIN (>60); Globulin 2.4 g/dL (1.3-3.2); Total Protein,Serum 6.5 g/dl (6.3-8.2)
[2023-08-07 09:31] LABS: Calcium 9.6 mg/dl (8.4-10.2); Glucose 118 mg/dl (74-100)
[2023-08-07] MEDS: 0.9 % SODIUM CHLORIDE 100 ML 25 ML IV (09:43)
[2023-08-07 09:44] VITALS: BP 119/64; PULSE 73; RESP 18; TEMP 36.6; O2SAT 98
[2023-08-07] MEDS: ONDANSETRON 4MG ODT 16 MG (09:44)
[2023-08-07] MEDS: DEXAMETHASONE 4MG TABLET 12 MG (09:44)
[2023-08-07] MEDS: APREPITANT 125MG/80MG TRIFOLD PACK 1 PACKET PO (09:44)
[2023-08-07 10:13] VITALS: BP 98/56; PULSE 63; RESP 18; O2SAT 98
[2023-08-07 10:43] VITALS: BP 111/61; PULSE 71; RESP 18; O2SAT 98
[2023-08-07 11:26] VITALS: BP 102/68; PULSE 58; RESP 18; O2SAT 97
[2023-08-07] MEDS: SODIUM CHLORIDE 0.9% 10ML FLUSH SYRINGE 10 ML IV (11:33)
[2023-08-07 12:07] VITALS: BP 108/58; PULSE 57; RESP 18; O2SAT 98
== END 2023-08-07 12:11 | disposition home or self-care (01) ==
LOC: INF 08:52
PROVIDERS: PCP Internal Medicine; Visit Provider Internal Medicine Medical Oncology
DX: C34.31 Malignant neoplasm of lower lobe, right bronchus or lung
CPT/HCPCS: 80053; 85025; 96413; 96415; 96417; J1642; J8501; J9045; J9181

== ENCOUNTER 2023-08-08 08:40 | Outpatient (CLI) | payer MEDICARE, SELFPAY ==
[2023-08-08 08:59] VITALS: BP 135/67; PULSE 66; RESP 18; TEMP 36.5; O2SAT 98
[2023-08-08] MEDS: SODIUM CHLORIDE 0.9% 10ML FLUSH SYRINGE 10 ML IV (08:59)
[2023-08-08] MEDS: SODIUM CHLORIDE 0.9% 50ML BAG 50 ML IV (08:59)
[2023-08-08] MEDS: DEXAMETHASONE 4MG TABLET 12 MG PO (08:59)
[2023-08-08 09:30] VITALS: BP 136/63; PULSE 67; RESP 18; O2SAT 98
[2023-08-08 10:00] VITALS: BP 131/66; PULSE 65; RESP 18; O2SAT 97
[2023-08-08 10:40] VITALS: BP 138/78; PULSE 58; RESP 18; O2SAT 98
== END 2023-08-08 10:40 | disposition home or self-care (01) ==
LOC: INF 08:41
PROVIDERS: PCP Internal Medicine; Visit Provider Internal Medicine Medical Oncology
DX: C34.31 Malignant neoplasm of lower lobe, right bronchus or lung (principal); Z45.2 Encounter for adjustment and management of vascular access device; Z79.899 Other long term (current) drug therapy
CPT/HCPCS: 96413; J1642; J9181

== ENCOUNTER 2023-08-09 09:54 | Outpatient (CLI) | payer MEDICARE, SELFPAY ==
[2023-08-09] MEDS: DEXAMETHASONE 4MG TABLET 12 MG PO (10:05)
[2023-08-09] MEDS: SODIUM CHLORIDE 0.9% 50ML BAG 50 ML IV (10:09)
[2023-08-09 10:40] VITALS: BP 155/84; PULSE 63; RESP 18; TEMP 36.7; O2SAT 99
[2023-08-09 10:55] VITALS: BP 146/71; PULSE 66
[2023-08-09 11:10] VITALS: BP 143/72; PULSE 62
[2023-08-09 11:25] VITALS: BP 162/81; PULSE 65
[2023-08-09 11:40] VITALS: BP 178/90; PULSE 63
[2023-08-09] MEDS: SODIUM CHLORIDE 0.9% 10ML FLUSH SYRINGE 10 ML IV (11:50)
== END 2023-08-09 11:50 | disposition home or self-care (01) ==
LOC: INF 09:55
PROVIDERS: PCP Internal Medicine; Visit Provider Internal Medicine Medical Oncology
DX: C34.31 Malignant neoplasm of lower lobe, right bronchus or lung (principal); Z45.2 Encounter for adjustment and management of vascular access device
CPT/HCPCS: 96413; J1642; J9181

== ENCOUNTER 2023-08-28 08:32 | Outpatient (CLI) | payer MEDICARE, SELFPAY ==
[2023-08-28] VITALS (9 sets, daily range): BP systolic 117–144; BP diastolic 59–81; PULSE 75–82; RESP 18; TEMP 36.7; O2SAT 96; BMI 25.7
[2023-08-28 08:54] LABS: Basophils % 0.3 % (0.1-2.0); Eosinophils % 0.4 % (0.1-12.0); Hematocrit 36.8 % (42.0-52.0); Hemoglobin 11.7 g/dL (14.1-18.0); Lymphocytes # 1.2 K/mm3 (0.7-4.5); Lymphocytes % 16.4 % (10-50); Mean Corpuscular HGB Conc 31.9 g/dL (31.8-35.4); Mean Corpuscular Hemoglobin 32.2 pg (27.0-31.2); Mean Platelet Volume 10.5 fl (7.4-10.4); Monocytes # 0.9 K/mm3 (0.1-1.0); Monocytes % 11.7 % (1.7-9.3); Neutrophils # 5.2 K/mm3 (1.8-7.8); Neutrophils % 71.2 % (37.0-80.0); Platelet Count 151 K/mm3 (142-424); Red Blood Count 3.64 M/mm3 (4.60-6.20); Red Cell Distribution Width 17.6 % (11.5-17.5); White Blood Count 7.3 K/mm3 (4.8-10.8)
[2023-08-28 09:04] LABS: Alanine Aminotransferase 18 U/L (12-78); Albumin/Globulin Ratio 1.7 (1.1-1.8); Alkaline Phosphatase 62 U/L (38-126); Aspartate Amino Transferase 23 U/L (17-59); Bilirubin,Total 0.3 mg/dl (0.2-1.3); Blood Urea Nitrogen 14 mg/dl (9-20); Calcium 9.4 mg/dl (8.4-10.2); Carbon Dioxide 27 mmol/L (22.0-30.0); Chloride 109 mmol/L (98-107); Creatinine Clearance Estimated 74 mL/min (50-200); Estimated Glomerular Filt Rate 113 ml/min (>60); GFR (African American) 137 ML/MIN (>60); Globulin 2.3 g/dL (1.3-3.2); Glucose 101 mg/dl (74-100); Sodium 140 mmol/L (136-145); Total Protein,Serum 6.3 g/dl (6.3-8.2)
[2023-08-28] MEDS: DEXAMETHASONE 4MG TABLET 12 MG (09:26)
[2023-08-28] MEDS: ONDANSETRON 4MG ODT 16 MG (09:26)
[2023-08-28] MEDS: 0.9 % SODIUM CHLORIDE 50 ML 25 ML IV (09:27)
[2023-08-28] MEDS: APREPITANT 125MG/80MG TRIFOLD PACK 1 PACKET PO (09:27)
[2023-08-28] MEDS: SODIUM CHLORIDE 0.9% 10ML FLUSH SYRINGE 10 ML IV (11:45)
== END 2023-08-28 11:50 | disposition home or self-care (01) ==
LOC: INF 08:33
PROVIDERS: PCP Internal Medicine; Visit Provider Internal Medicine Medical Oncology
DX: C34.31 Malignant neoplasm of lower lobe, right bronchus or lung; Z45.2 Encounter for adjustment and management of vascular access device; Z79.899 Other long term (current) drug therapy; C79.9 Secondary malignant neoplasm of unspecified site; Z87.891 Personal history of nicotine dependence
CPT/HCPCS: 80053; 85025; 96413; 96415; 96417; J1642; J8501; J9045; J9181

== ENCOUNTER 2023-08-29 08:32 | Outpatient (CLI) | payer MEDICARE, SELFPAY ==
[2023-08-29 08:45] VITALS: BP 124/60; PULSE 71; RESP 18; TEMP 36.6; O2SAT 98
[2023-08-29] MEDS: DEXAMETHASONE 4MG TABLET 12 MG PO (08:45)
[2023-08-29] MEDS: SODIUM CHLORIDE 0.9% 50ML BAG 50 ML IV (09:12)
[2023-08-29 09:23] VITALS: BP 131/67; PULSE 68; RESP 18; O2SAT 98
[2023-08-29] MEDS: SODIUM CHLORIDE 0.9% 10ML FLUSH SYRINGE 10 ML IV (09:44)
[2023-08-29 09:53] VITALS: BP 128/69; PULSE 74; RESP 18; O2SAT 98
[2023-08-29 10:40] VITALS: BP 150/61; PULSE 61; RESP 18; O2SAT 97
== END 2023-08-29 10:40 | disposition home or self-care (01) ==
PROVIDERS: PCP Internal Medicine; Visit Provider Internal Medicine Medical Oncology
DX: C34.31 Malignant neoplasm of lower lobe, right bronchus or lung (principal)
CPT/HCPCS: 96413; J1642; J9181

== ENCOUNTER 2023-08-30 11:27 | Outpatient (CLI) | payer MEDICARE, SELFPAY ==
[2023-08-30 11:40] VITALS: BP 138/74; PULSE 78
[2023-08-30] MEDS: 0.9 % SODIUM CHLORIDE 1000ML 1,000 ML 999 ML IV (11:45)
[2023-08-30] MEDS: DEXAMETHASONE 4MG TABLET 12 MG PO (11:45)
[2023-08-30 12:15] VITALS: BP 149/84; PULSE 81; RESP 18; TEMP 36.7; O2SAT 99
[2023-08-30 12:30] VITALS: BP 167/84; PULSE 79
[2023-08-30 12:45] VITALS: BP 164/82; PULSE 82
[2023-08-30 13:00] VITALS: BP 158/79; PULSE 85
[2023-08-30 13:15] VITALS: BP 184/79; PULSE 80
[2023-08-30] MEDS: SODIUM CHLORIDE 0.9% 10ML FLUSH SYRINGE 10 ML IV (13:15)
== END 2023-08-30 13:25 | disposition home or self-care (01) ==
LOC: INF 11:28
PROVIDERS: PCP Internal Medicine; Visit Provider Internal Medicine Medical Oncology
DX: C34.31 Malignant neoplasm of lower lobe, right bronchus or lung (principal); E86.0 Dehydration; Z79.899 Other long term (current) drug therapy
CPT/HCPCS: 96360; 96413; 96417; J1642; J9181

== ENCOUNTER 2023-09-18 09:01 | Outpatient (CLI) | payer MEDICARE, SELFPAY ==
[2023-09-18 09:06] VITALS: BMI 25.7
[2023-09-18 09:25] LABS: Basophils % 0.3 % (0.1-2.0); Eosinophils % 0.2 % (0.1-12.0); Hematocrit 34.6 % (42.0-52.0); Hemoglobin 11.1 g/dL (14.1-18.0); Lymphocytes # 0.9 K/mm3 (0.7-4.5); Lymphocytes % 12.9 % (10-50); Mean Corpuscular Volume 100.3 fl (80-94); Mean Platelet Volume 9.8 fl (7.4-10.4); Monocytes # 0.7 K/mm3 (0.1-1.0); Monocytes % 10.9 % (1.7-9.3); Neutrophils # 5.2 K/mm3 (1.8-7.8); Neutrophils % 75.8 % (37.0-80.0); Platelet Count 134 K/mm3 (142-424); Red Blood Count 3.45 M/mm3 (4.60-6.20); Red Cell Distribution Width 17.7 % (11.5-17.5); White Blood Count 6.8 K/mm3 (4.8-10.8)
[2023-09-18 09:40] LABS: Alanine Aminotransferase 19 U/L (12-78); Albumin Level 4.1 g/dl (3.5-5.0); Albumin/Globulin Ratio 1.6 (1.1-1.8); Alkaline Phosphatase 65 U/L (38-126); Anion Gap 12.8 mEq/L (5-15); Aspartate Amino Transferase 23 U/L (17-59); Bilirubin,Total 0.2 mg/dl (0.2-1.3); Blood Urea Nitrogen 14 mg/dl (9-20); Calcium 9.2 mg/dl (8.4-10.2); Carbon Dioxide 28 mmol/L (22.0-30.0); Chloride 105 mmol/L (98-107); Creatinine Clearance Estimated 74 mL/min (50-200); Estimated Glomerular Filt Rate 113 ml/min (>60); GFR (African American) 137 ML/MIN (>60); Globulin 2.5 g/dL (1.3-3.2); Glucose 77 mg/dl (74-100); Potassium 3.8 mmoL/L (3.5-5.1); Sodium 142 mmol/L (136-145); Total Protein,Serum 6.6 g/dl (6.3-8.2)
[2023-09-18] MEDS: DEXAMETHASONE 4MG TABLET 12 MG PO (09:52)
[2023-09-18 09:53] VITALS: BP 142/82; PULSE 82; RESP 18; TEMP 36.7; O2SAT 98
[2023-09-18] MEDS: 0.9 % SODIUM CHLORIDE 100 ML IV (09:53)
[2023-09-18] MEDS: APREPITANT 125MG/80MG TRIFOLD PACK 1 PACKET PO (09:53)
[2023-09-18] MEDS: ONDANSETRON 4MG ODT 16 MG SL (09:53)
[2023-09-18 10:23] VITALS: BP 110/57; PULSE 67; RESP 18; O2SAT 98
[2023-09-18 11:03] VITALS: BP 131/68; PULSE 61; RESP 20; O2SAT 98
[2023-09-18 11:33] VITALS: BP 119/64; PULSE 69; RESP 20; O2SAT 97
[2023-09-18] MEDS: SODIUM CHLORIDE 0.9% 10ML FLUSH SYRINGE 10 ML IV (11:51)
[2023-09-18 12:17] VITALS: BP 126/69; PULSE 70; RESP 18; O2SAT 98
== END 2023-09-18 12:19 | disposition home or self-care (01) ==
LOC: INF 09:02
PROVIDERS: PCP Internal Medicine; Visit Provider Internal Medicine Medical Oncology
DX: C34.31 Malignant neoplasm of lower lobe, right bronchus or lung (principal); Z79.899 Other long term (current) drug therapy
CPT/HCPCS: 80053; 85025; 96413; 96415; 96417; J1642; J9045; J9181

== ENCOUNTER 2023-09-19 09:17 | Outpatient (CLI) | payer MEDICARE, SELFPAY ==
[2023-09-19] MEDS: DEXAMETHASONE 4MG TABLET 12 MG PO (10:06)
[2023-09-19 10:07] VITALS: BP 128/69; PULSE 78; RESP 18; TEMP 36.6; O2SAT 98
[2023-09-19] MEDS: SODIUM CHLORIDE 0.9% 10ML FLUSH SYRINGE 10 ML IV (10:10)
[2023-09-19] MEDS: SODIUM CHLORIDE 0.9% 50ML BAG 50 ML IV (10:17)
[2023-09-19 10:37] VITALS: BP 121/66; PULSE 77; RESP 18; O2SAT 98
[2023-09-19 11:07] VITALS: BP 131/61; PULSE 79; RESP 18; O2SAT 98
[2023-09-19 11:56] VITALS: BP 125/70; PULSE 75; RESP 18; O2SAT 97
== END 2023-09-19 12:00 | disposition home or self-care (01) ==
LOC: INF 09:18
PROVIDERS: PCP Internal Medicine; Visit Provider Internal Medicine Medical Oncology
DX: C34.31 Malignant neoplasm of lower lobe, right bronchus or lung (principal)
CPT/HCPCS: 96413; J1642; J9181

== ENCOUNTER 2023-09-20 08:29 | Outpatient (CLI) | payer MEDICARE, SELFPAY ==
[2023-09-20] MEDS: DEXAMETHASONE 4MG TABLET 12 MG PO (08:35)
[2023-09-20] MEDS: SODIUM CHLORIDE 0.9% 50ML BAG 50 ML IV (09:01)
[2023-09-20 09:05] VITALS: BP 145/73; PULSE 65; RESP 18; TEMP 36.7; O2SAT 97
[2023-09-20 09:20] VITALS: BP 134/68; PULSE 69
[2023-09-20 09:35] VITALS: BP 156/72; PULSE 70
[2023-09-20 09:50] VITALS: BP 163/71; PULSE 73
[2023-09-20 10:10] VITALS: BP 177/72; PULSE 74
[2023-09-20] MEDS: SODIUM CHLORIDE 0.9% 10ML FLUSH SYRINGE 10 ML IV (10:10)
== END 2023-09-20 10:15 | disposition home or self-care (01) ==
LOC: INF 08:29
PROVIDERS: PCP Internal Medicine; Visit Provider Internal Medicine Medical Oncology
DX: C34.31 Malignant neoplasm of lower lobe, right bronchus or lung (principal); Z79.899 Other long term (current) drug therapy
CPT/HCPCS: 96413; J1642; J9181

== ENCOUNTER 2023-10-07 08:34 | Outpatient (CLI) | payer MEDICARE, SELFPAY ==
[2023-10-07 08:32] VITALS: BMI 26.1
[2023-10-07 08:46] LABS: Basophils % 0.3 % (0.1-2.0); Eosinophils % 0.5 % (0.1-12.0); Hematocrit 33.1 % (42.0-52.0); Hemoglobin 10.6 g/dL (14.1-18.0); Mean Corpuscular Hemoglobin 32.3 pg (27.0-31.2); Mean Corpuscular Volume 101.1 fl (80-94); Mean Platelet Volume 11.2 fl (7.4-10.4); Monocytes # 0.5 K/mm3 (0.1-1.0); Monocytes % 11.6 % (1.7-9.3); Neutrophils # 2.8 K/mm3 (1.8-7.8); Neutrophils % 64.6 % (37.0-80.0); Platelet Count 89 K/mm3 (142-424); Red Blood Count 3.27 M/mm3 (4.60-6.20); White Blood Count 4.3 K/mm3 (4.8-10.8)
--- NOTE | 2023-10-07 08:46 | CT_ITS ---
FINAL REPORT TECHNIQUE: After the administration of intravenous contrast, axial images were obtained through the abdomen and pelvis by computed tomography. Oral contrast was also administered. This study was performed with technique to keep radiation doses as low as reasonably achievable, (ALARA). Individualized dose reduction techniques using automated exposure control or adjustment of the MA and/or KV according to the patient's size were employed. CLINICAL HISTORY: LUNG CANCER COMPARISON: 07/08/2023 FINDINGS: Abdomen: In the medial right hepatic lobe is a mass measuring 27 mm which is stable. There has been interval enlargement of a mass lateral to the gallbladder fossa measuring 45 x 38 mm, previously measured 19 x 18 mm. There is a questionable, new small mass laterally which measures 8 mm. The spleen is unremarkable. The adrenals are normal. There is a small lipoma in the pancreatic body which is stable. The pancreas is otherwise unremarkable. The kidneys enhance appropriately. The aorta is normal in caliber. There is no free fluid or adenopathy. There are moderate vascular calcifications. Pelvis: There are postoperative changes of left hip arthroplasty resulting in streak artifact. The appendix is normal the urinary bladder is unremarkable. There is no free fluid or adenopathy. IMPRESSION: Worsening right hepatic lobe metastasis with questionable new, small right hepatic lobe metastasis. Reviewed, Interpreted and Dictated by Rishi Booker III, MD Transcribed by Tiffanie Valdes Authenticated and [facility]
[2023-10-07 08:51] LABS: Chloride 106 mmol/L (98-107); Potassium 4.5 mmoL/L (3.5-5.1); Sodium 139 mmol/L (136-145)
[2023-10-07 08:54] LABS: Alanine Aminotransferase 20 U/L (12-78); Albumin Level 4.1 g/dl (3.5-5.0); Albumin/Globulin Ratio 1.6 (1.1-1.8); Alkaline Phosphatase 75 U/L (38-126); Anion Gap 11.5 mEq/L (5-15); Aspartate Amino Transferase 20 U/L (17-59); Bilirubin,Total 0.2 mg/dl (0.2-1.3); Blood Urea Nitrogen 14 mg/dl (9-20); Calcium 9.5 mg/dl (8.4-10.2); Carbon Dioxide 26 mmol/L (22.0-30.0); Creatinine Clearance Estimated 76 mL/min (50-200); Estimated Glomerular Filt Rate 97 ml/min (>60); GFR (African American) 117 ML/MIN (>60); Globulin 2.5 g/dL (1.3-3.2); Glucose 98 mg/dl (74-100); Total Protein,Serum 6.6 g/dl (6.3-8.2)
--- NOTE | 2023-10-07 09:02 | CT_ITS ---
FINAL REPORT CLINICAL HISTORY: LUNG CANCER COMPARISON: 07/08/2023 FINDINGS: Axial CT images of the chest were obtained with contrast. Coronal reformatted images were also obtained. This study was performed with techniques to keep radiation doses as low as reasonably achievable, (ALARA). Individualized dose reduction techniques using automated exposure control or adjustment of mA and/or KV according to the patient''''s size were employed. Patient is status post median sternotomy. A right jugular port is in place. There are small, stable mediastinal lymph nodes. No axillary mass or adenopathy is identified. Anterior right upper lobe mass measuring 35 x 30 mm has not significantly changed. There is a left lower lobe nodule measuring 8 mm which is also stable. No new mass or nodule is identified. Chest wall is unremarkable. IMPRESSION: Stable pulmonary nodules. No new mass or nodule. Reviewed, Interpreted and Dictated by Rishi Booker III, MD Transcribed by Tiffanie Valdes Authenticated and [facility]
[2023-10-07] MEDS: SODIUM CHLORIDE 0.9% 10ML FLUSH SYRINGE 10 ML IV (09:20)
[2023-10-07] MEDS: SODIUM CHLORIDE 0.9% 10ML SYR (RAD ONLY) 10 ML IV (09:21)
[2023-10-07] MEDS: IOPAMIDOL-370 (76%);100ML BOTTLE 75 ML IV (09:21)
== END 2023-10-07 09:30 | disposition home or self-care (01) ==
LOC: RAD 08:35
PROVIDERS: PCP Internal Medicine Medical Oncology; Visit Provider Internal Medicine Medical Oncology
DX: C34.31 Malignant neoplasm of lower lobe, right bronchus or lung (principal)
CPT/HCPCS: 36591; 71260; 74177; 80053; 85025; J1642; Q9967

== ENCOUNTER 2023-10-16 08:40 | Outpatient (CLI) | payer MEDICARE, SELFPAY ==
[2023-10-16 08:43] VITALS: BMI 26.1
[2023-10-16 08:56] LABS: Basophils % 0.3 % (0.1-2.0); Eosinophils % 0.3 % (0.1-12.0); Hematocrit 31.9 % (42.0-52.0); Hemoglobin 10.4 g/dL (14.1-18.0); Lymphocytes # 1.3 K/mm3 (0.7-4.5); Lymphocytes % 12.5 % (10-50); Mean Corpuscular HGB Conc 32.5 g/dL (31.8-35.4); Mean Corpuscular Hemoglobin 32.8 pg (27.0-31.2); Mean Corpuscular Volume 100.9 fl (80-94); Mean Platelet Volume 9.3 fl (7.4-10.4); Monocytes % 9.8 % (1.7-9.3); Neutrophils # 7.8 K/mm3 (1.8-7.8); Neutrophils % 77.1 % (37.0-80.0); Platelet Count 171 K/mm3 (142-424); Red Blood Count 3.16 M/mm3 (4.60-6.20); Red Cell Distribution Width 17.8 % (11.5-17.5); White Blood Count 10.2 K/mm3 (4.8-10.8)
[2023-10-16 09:10] LABS: Chloride 106 mmol/L (98-107)
[2023-10-16 09:11] LABS: Sodium 138 mmol/L (136-145)
[2023-10-16 09:13] LABS: Alanine Aminotransferase 15 U/L (12-78); Alkaline Phosphatase 69 U/L (38-126); Aspartate Amino Transferase 21 U/L (17-59); Bilirubin,Total 0.2 mg/dl (0.2-1.3); Blood Urea Nitrogen 18 mg/dl (9-20); Creatinine Clearance Estimated 76 mL/min (50-200); Estimated Glomerular Filt Rate 113 ml/min (>60); GFR (African American) 137 ML/MIN (>60)
[2023-10-16 09:14] LABS: Albumin Level 3.7 g/dl (3.5-5.0); Albumin/Globulin Ratio 1.5 (1.1-1.8); Calcium 8.9 mg/dl (8.4-10.2); Carbon Dioxide 25 mmol/L (22.0-30.0); Globulin 2.5 g/dL (1.3-3.2); Glucose 87 mg/dl (74-100); Total Protein,Serum 6.2 g/dl (6.3-8.2)
[2023-10-16] MEDS: PROCHLORPERAZINE 10MG TABLET 10 MG PO (09:25)
[2023-10-16 09:45] VITALS: BP 117/70; PULSE 84; RESP 18; TEMP 36.6; O2SAT 98
[2023-10-16] MEDS: VINORELBINE TARTRATE IV (09:45)
[2023-10-16] MEDS: SODIUM CHLORIDE 0.9% IV (09:45)
[2023-10-16] MEDS: 0.9 % SODIUM CHLORIDE 50 ML 100 ML IV (09:46)
[2023-10-16 10:00] VITALS: BP 134/67; PULSE 75
[2023-10-16] MEDS: SODIUM CHLORIDE 0.9% 10ML FLUSH SYRINGE 10 ML IV (10:10)
[2023-10-16] MEDS: ONDANSETRON 4MG ODT 4 MG (10:15)
== END 2023-10-16 10:20 | disposition home or self-care (01) ==
LOC: INF 08:43
PROVIDERS: PCP Internal Medicine; Visit Provider Internal Medicine Medical Oncology
DX: C34.31 Malignant neoplasm of lower lobe, right bronchus or lung (principal); C78.7 Secondary malignant neoplasm of liver and intrahepatic bile duct; C79.51 Secondary malignant neoplasm of bone; Z87.891 Personal history of nicotine dependence; Z79.899 Other long term (current) drug therapy
CPT/HCPCS: 80053; 85025; 96409; 96413; J1642; J9390; Q0164

== ENCOUNTER 2023-10-23 08:44 | Outpatient (CLI) | payer MEDICARE, SELFPAY ==
[2023-10-23 08:48] VITALS: BMI 26.2
[2023-10-23 09:11] LABS: Basophils % 0.2 % (0.1-2.0); Eosinophils % 0.3 % (0.1-12.0); Hematocrit 31.4 % (42.0-52.0); Hemoglobin 10.1 g/dL (14.1-18.0); Lymphocytes # 0.9 K/mm3 (0.7-4.5); Lymphocytes % 9.9 % (10-50); Mean Corpuscular HGB Conc 32.2 g/dL (31.8-35.4); Mean Corpuscular Hemoglobin 32.2 pg (27.0-31.2); Mean Platelet Volume 10.2 fl (7.4-10.4); Monocytes # 0.6 K/mm3 (0.1-1.0); Monocytes % 6.4 % (1.7-9.3); Neutrophils # 7.2 K/mm3 (1.8-7.8); Neutrophils % 83.3 % (37.0-80.0); Platelet Count 176 K/mm3 (142-424); Red Blood Count 3.14 M/mm3 (4.60-6.20); Red Cell Distribution Width 17.3 % (11.5-17.5); White Blood Count 8.6 K/mm3 (4.8-10.8)
[2023-10-23 09:15] LABS: Chloride 103 mmol/L (98-107); Potassium 4.1 mmoL/L (3.5-5.1); Sodium 137 mmol/L (136-145)
[2023-10-23 09:18] LABS: Alanine Aminotransferase 16 U/L (12-78); Albumin/Globulin Ratio 1.5 (1.1-1.8); Alkaline Phosphatase 81 U/L (38-126); Anion Gap 12.1 mEq/L (5-15); Aspartate Amino Transferase 18 U/L (17-59); Bilirubin,Total 0.3 mg/dl (0.2-1.3); Blood Urea Nitrogen 18 mg/dl (9-20); Carbon Dioxide 26 mmol/L (22.0-30.0); Creatinine Clearance Estimated 76 mL/min (50-200); Estimated Glomerular Filt Rate 113 ml/min (>60); GFR (African American) 137 ML/MIN (>60); Globulin 2.7 g/dL (1.3-3.2); Total Protein,Serum 6.7 g/dl (6.3-8.2)
[2023-10-23 09:19] LABS: Calcium 9.3 mg/dl (8.4-10.2); Glucose 118 mg/dl (74-100)
[2023-10-23] MEDS: SODIUM CHLORIDE 0.9% 50ML BAG 50 ML IV (09:30)
[2023-10-23] MEDS: PROCHLORPERAZINE 10MG TABLET 10 MG PO (09:30)
[2023-10-23] MEDS: VINORELBINE TARTRATE IV (09:55)
[2023-10-23] MEDS: SODIUM CHLORIDE 0.9% IV (09:55)
[2023-10-23 10:00] VITALS: BP 115/63; PULSE 59; RESP 17; O2SAT 100
[2023-10-23 10:10] VITALS: BP 143/65; PULSE 52; RESP 17
== END 2023-10-23 10:25 | disposition home or self-care (01) ==
LOC: INF 08:44
PROVIDERS: PCP Internal Medicine; Visit Provider Internal Medicine Medical Oncology
DX: C34.31 Malignant neoplasm of lower lobe, right bronchus or lung (principal); C78.7 Secondary malignant neoplasm of liver and intrahepatic bile duct; C79.51 Secondary malignant neoplasm of bone; Z87.891 Personal history of nicotine dependence; Z79.899 Other long term (current) drug therapy
CPT/HCPCS: 80053; 85025; 96409; J1642; J9390; Q0164

== ENCOUNTER 2023-10-30 08:44 | Outpatient (CLI) | payer MEDICARE, SELFPAY ==
[2023-10-30 08:48] VITALS: BMI 26.1
[2023-10-30 09:16] LABS: Basophils % 0.2 % (0.1-2.0); Eosinophils # 0.1 K/mm3 (0.0-0.4); Hematocrit 27.4 % (42.0-52.0); Hemoglobin 9.7 g/dL (14.1-18.0); Lymphocytes # 0.9 K/mm3 (0.7-4.5); Lymphocytes % 14.6 % (10-50); Mean Corpuscular HGB Conc 35.3 g/dL (31.8-35.4); Mean Corpuscular Hemoglobin 35.3 pg (27.0-31.2); Mean Platelet Volume 9.9 fl (7.4-10.4); Monocytes # 0.3 K/mm3 (0.1-1.0); Monocytes % 5.5 % (1.7-9.3); Neutrophils # 4.8 K/mm3 (1.8-7.8); Neutrophils % 78.7 % (37.0-80.0); Platelet Count 185 K/mm3 (142-424); Red Blood Count 2.74 M/mm3 (4.60-6.20); Red Cell Distribution Width 17.5 % (11.5-17.5); White Blood Count 6.1 K/mm3 (4.8-10.8)
[2023-10-30 09:22] LABS: Chloride 108 mmol/L (98-107)
[2023-10-30 09:23] LABS: Potassium 4.2 mmoL/L (3.5-5.1); Sodium 139 mmol/L (136-145)
[2023-10-30 09:25] LABS: Alanine Aminotransferase 16 U/L (12-78); Albumin Level 3.9 g/dl (3.5-5.0); Albumin/Globulin Ratio 1.4 (1.1-1.8); Alkaline Phosphatase 88 U/L (38-126); Anion Gap 8.2 mEq/L (5-15); Aspartate Amino Transferase 24 U/L (17-59); Bilirubin,Total 0.3 mg/dl (0.2-1.3); Blood Urea Nitrogen 16 mg/dl (9-20); Carbon Dioxide 27 mmol/L (22.0-30.0); Creatinine Clearance Estimated 76 mL/min (50-200); Estimated Glomerular Filt Rate 97 ml/min (>60); GFR (African American) 117 ML/MIN (>60); Globulin 2.7 g/dL (1.3-3.2); Total Protein,Serum 6.6 g/dl (6.3-8.2)
[2023-10-30 09:26] LABS: Calcium 9.3 mg/dl (8.4-10.2); Glucose 105 mg/dl (74-100)
[2023-10-30 09:36] VITALS: BP 98/60; PULSE 58; RESP 18; TEMP 36.8; O2SAT 98
[2023-10-30] MEDS: PROCHLORPERAZINE 10MG TABLET 10 MG PO (09:36)
[2023-10-30] MEDS: SODIUM CHLORIDE 0.9% 50ML BAG 50 ML IV (09:53)
[2023-10-30] MEDS: SODIUM CHLORIDE 0.9% 10ML FLUSH SYRINGE 10 ML IV (09:53)
[2023-10-30] MEDS: SODIUM CHLORIDE 0.9% IV (09:57)
[2023-10-30] MEDS: VINORELBINE TARTRATE IV (09:57)
[2023-10-30 10:06] VITALS: BP 110/50; PULSE 53; RESP 18; O2SAT 98
[2023-10-30 10:25] VITALS: BP 128/71; PULSE 58; RESP 18; O2SAT 98
== END 2023-10-30 10:30 | disposition home or self-care (01) ==
LOC: INF 08:45
PROVIDERS: PCP Internal Medicine; Visit Provider Internal Medicine Medical Oncology
DX: C34.31 Malignant neoplasm of lower lobe, right bronchus or lung (principal); C78.7 Secondary malignant neoplasm of liver and intrahepatic bile duct; C79.51 Secondary malignant neoplasm of bone; Z87.891 Personal history of nicotine dependence; Z79.899 Other long term (current) drug therapy
CPT/HCPCS: 80053; 85025; 96409; J1642; J9390; Q0164

== ENCOUNTER 2023-11-06 09:30 | Outpatient (CLI) | payer MEDICARE, SELFPAY ==
[2023-11-06 09:34] VITALS: BMI 26.1
[2023-11-06 09:53] LABS: Basophils % 0.3 % (0.1-2.0); Eosinophils % 0.7 % (0.1-12.0); Hematocrit 26.1 % (42.0-52.0); Hemoglobin 9.6 g/dL (14.1-18.0); Lymphocytes # 0.7 K/mm3 (0.7-4.5); Lymphocytes % 11.9 % (10-50); Mean Corpuscular HGB Conc 36.9 g/dL (31.8-35.4); Mean Corpuscular Hemoglobin 37.1 pg (27.0-31.2); Mean Corpuscular Volume 100.6 fl (80-94); Mean Platelet Volume 10.3 fl (7.4-10.4); Monocytes # 0.3 K/mm3 (0.1-1.0); Monocytes % 5.6 % (1.7-9.3); Neutrophils # 4.5 K/mm3 (1.8-7.8); Neutrophils % 81.5 % (37.0-80.0); Platelet Count 187 K/mm3 (142-424); Red Blood Count 2.59 M/mm3 (4.60-6.20); Red Cell Distribution Width 17.7 % (11.5-17.5); White Blood Count 5.6 K/mm3 (4.8-10.8)
[2023-11-06 10:00] LABS: Alanine Aminotransferase 19 U/L (12-78); Albumin/Globulin Ratio 1.5 (1.1-1.8); Alkaline Phosphatase 85 U/L (38-126); Anion Gap 10.8 mEq/L (5-15); Aspartate Amino Transferase 22 U/L (17-59); Bilirubin,Total 0.3 mg/dl (0.2-1.3); Blood Urea Nitrogen 17 mg/dl (9-20); Calcium 9.4 mg/dl (8.4-10.2); Carbon Dioxide 27 mmol/L (22.0-30.0); Creatinine Clearance Estimated 76 mL/min (50-200); Estimated Glomerular Filt Rate 113 ml/min (>60); GFR (African American) 137 ML/MIN (>60); Globulin 2.6 g/dL (1.3-3.2); Glucose 141 mg/dl (74-100); Potassium 3.8 mmoL/L (3.5-5.1); Sodium 139 mmol/L (136-145); Total Protein,Serum 6.6 g/dl (6.3-8.2)
[2023-11-06] MEDS: PROCHLORPERAZINE 10MG TABLET 10 MG PO (10:18)
[2023-11-06 10:25] LABS: Chloride 105 mmol/L (98-107)
[2023-11-06] MEDS: VINORELBINE TARTRATE IV (10:58)
[2023-11-06] MEDS: SODIUM CHLORIDE 0.9% IV (10:58)
[2023-11-06] MEDS: SODIUM CHLORIDE 0.9% 50ML BAG 50 ML IV (10:58)
[2023-11-06 11:03] VITALS: BP 131/70; PULSE 57; RESP 18; O2SAT 97
[2023-11-06 11:25] VITALS: BP 171/76; PULSE 62; RESP 18; O2SAT 97
== END 2023-11-06 11:25 | disposition home or self-care (01) ==
LOC: INF 09:31
PROVIDERS: PCP Internal Medicine; Visit Provider Internal Medicine Medical Oncology
DX: C34.31 Malignant neoplasm of lower lobe, right bronchus or lung (principal); C78.7 Secondary malignant neoplasm of liver and intrahepatic bile duct; C79.51 Secondary malignant neoplasm of bone; Z87.891 Personal history of nicotine dependence; Z79.899 Other long term (current) drug therapy
CPT/HCPCS: 80053; 85025; 96409; J9390; Q0164

== ENCOUNTER 2023-11-13 10:18 | Outpatient (CLI) | payer MEDICARE, SELFPAY ==
[2023-11-13 10:23] VITALS: BMI 26.4
[2023-11-13 10:39] LABS: Basophils % 0.4 % (0.1-2.0); Eosinophils % 0.7 % (0.1-12.0); Hematocrit 25.8 % (42.0-52.0); Hemoglobin 8.6 g/dL (14.1-18.0); Lymphocytes # 0.6 K/mm3 (0.7-4.5); Lymphocytes % 12.2 % (10-50); Mean Corpuscular HGB Conc 33.3 g/dL (31.8-35.4); Mean Corpuscular Hemoglobin 32.4 pg (27.0-31.2); Mean Corpuscular Volume 97.1 fl (80-94); Mean Platelet Volume 11.2 fl (7.4-10.4); Monocytes # 0.3 K/mm3 (0.1-1.0); Monocytes % 5.9 % (1.7-9.3); Neutrophils # 3.9 K/mm3 (1.8-7.8); Neutrophils % 80.7 % (37.0-80.0); Platelet Count 168 K/mm3 (142-424); Red Blood Count 2.65 M/mm3 (4.60-6.20); Red Cell Distribution Width 17.8 % (11.5-17.5); White Blood Count 4.8 K/mm3 (4.8-10.8)
[2023-11-13 10:48] LABS: Chloride 105 mmol/L (98-107); Sodium 137 mmol/L (136-145)
[2023-11-13 10:50] LABS: Alanine Aminotransferase 16 U/L (12-78); Albumin Level 3.5 g/dl (3.5-5.0); Albumin/Globulin Ratio 1.4 (1.1-1.8); Alkaline Phosphatase 81 U/L (38-126); Aspartate Amino Transferase 20 U/L (17-59); Bilirubin,Total 0.3 mg/dl (0.2-1.3); Blood Urea Nitrogen 14 mg/dl (9-20); Carbon Dioxide 27 mmol/L (22.0-30.0); Creatinine Clearance Estimated 74 mL/min (50-200); Estimated Glomerular Filt Rate 97 ml/min (>60); GFR (African American) 117 ML/MIN (>60); Globulin 2.5 g/dL (1.3-3.2); Glucose 133 mg/dl (74-100)
[2023-11-13] MEDS: PROCHLORPERAZINE 10MG TABLET 10 MG PO (10:55)
[2023-11-13] MEDS: VINORELBINE TARTRATE IV (11:29)
[2023-11-13] MEDS: SODIUM CHLORIDE 0.9% IV (11:29)
[2023-11-13 11:35] VITALS: BP 154/62; PULSE 64; RESP 18; TEMP 37; O2SAT 99
[2023-11-13 11:45] VITALS: BP 155/66; PULSE 58; RESP 18; O2SAT 99
[2023-11-13] MEDS: SODIUM CHLORIDE 0.9% 10ML FLUSH SYRINGE 10 ML IV (11:50)
[2023-11-13 11:51] LABS: Iron 26 ug/dL (49-181)
[2023-11-13 12:00] LABS: Total Iron Binding Capacity 228 ug/dL (261-462)
[2023-11-13 12:28] LABS: Ferritin 335 ng/ml (17.9-464)
== END 2023-11-13 11:55 | disposition home or self-care (01) ==
LOC: INF 10:19
PROVIDERS: PCP Internal Medicine; Visit Provider Internal Medicine Medical Oncology
DX: C34.31 Malignant neoplasm of lower lobe, right bronchus or lung (principal); C78.7 Secondary malignant neoplasm of liver and intrahepatic bile duct; C79.51 Secondary malignant neoplasm of bone; Z87.891 Personal history of nicotine dependence; Z79.899 Other long term (current) drug therapy
CPT/HCPCS: 80053; 82728; 83540; 83550; 85025; 96374; J1642; J9390; Q0164

== ENCOUNTER 2023-11-20 08:22 | Outpatient (CLI) | payer MEDICARE, SELFPAY ==
[2023-11-20 08:36] VITALS: BMI 26.4
[2023-11-20 08:45] LABS: Basophils % 0.3 % (0.1-2.0); Eosinophils % 0.6 % (0.1-12.0); Hematocrit 25.3 % (42.0-52.0); Hemoglobin 8.2 g/dL (14.1-18.0); Lymphocytes # 0.4 K/mm3 (0.7-4.5); Lymphocytes % 12.7 % (10-50); Mean Corpuscular HGB Conc 32.5 g/dL (31.8-35.4); Mean Corpuscular Hemoglobin 32.1 pg (27.0-31.2); Mean Corpuscular Volume 98.8 fl (80-94); Mean Platelet Volume 11.5 fl (7.4-10.4); Monocytes # 0.2 K/mm3 (0.1-1.0); Monocytes % 6.3 % (1.7-9.3); Neutrophils # 2.7 K/mm3 (1.8-7.8); Neutrophils % 80.1 % (37.0-80.0); Platelet Count 167 K/mm3 (142-424); Red Blood Count 2.56 M/mm3 (4.60-6.20); Red Cell Distribution Width 18.1 % (11.5-17.5); White Blood Count 3.4 K/mm3 (4.8-10.8)
[2023-11-20 09:21] LABS: Alanine Aminotransferase 16 U/L (12-78); Albumin Level 3.4 g/dl (3.5-5.0); Albumin/Globulin Ratio 1.4 (1.1-1.8); Alkaline Phosphatase 78 U/L (38-126); Anion Gap 10.9 mEq/L (5-15); Aspartate Amino Transferase 19 U/L (17-59); Bilirubin,Total 0.2 mg/dl (0.2-1.3); Blood Urea Nitrogen 19 mg/dl (9-20); Calcium 8.9 mg/dl (8.4-10.2); Carbon Dioxide 25 mmol/L (22.0-30.0); Chloride 107 mmol/L (98-107); Creatinine Clearance Estimated 74 mL/min (50-200); Estimated Glomerular Filt Rate 113 ml/min (>60); GFR (African American) 137 ML/MIN (>60); Globulin 2.5 g/dL (1.3-3.2); Glucose 117 mg/dl (74-100); Potassium 3.9 mmoL/L (3.5-5.1); Sodium 139 mmol/L (136-145); Total Protein,Serum 5.9 g/dl (6.3-8.2)
[2023-11-20] MEDS: SODIUM CHLORIDE 0.9% 50ML BAG 50 ML IV (09:30)
[2023-11-20] MEDS: SODIUM CHLORIDE 0.9% 10ML FLUSH SYRINGE 10 ML IV (09:31)
[2023-11-20 09:42] VITALS: BP 122/50; PULSE 77; RESP 18; TEMP 36.7; O2SAT 99
[2023-11-20] MEDS: SODIUM CHLORIDE 0.9% IV (09:42)
[2023-11-20] MEDS: VINORELBINE TARTRATE IV (09:42)
[2023-11-20 10:05] VITALS: BP 137/60; PULSE 74; RESP 18; O2SAT 99
== END 2023-11-20 10:05 | disposition home or self-care (01) ==
LOC: INF 08:23
PROVIDERS: PCP Internal Medicine; Visit Provider Internal Medicine Medical Oncology
DX: R91.8 Other nonspecific abnormal finding of lung field (principal)
CPT/HCPCS: 80053; 85025; 96409; J1642; J9390

== ENCOUNTER 2023-11-27 09:12 | Outpatient (CLI) | payer MEDICARE, SELFPAY ==
[2023-11-27 09:17] VITALS: BMI 26.1
[2023-11-27 09:33] LABS: Basophils % 0.2 % (0.1-2.0); Eosinophils % 0.7 % (0.1-12.0); Hematocrit 24.3 % (42.0-52.0); Hemoglobin 7.8 g/dL (14.1-18.0); Lymphocytes # 0.5 K/mm3 (0.7-4.5); Lymphocytes % 13.7 % (10-50); Mean Corpuscular Hemoglobin 31.8 pg (27.0-31.2); Mean Corpuscular Volume 99.2 fl (80-94); Mean Platelet Volume 12.1 fl (7.4-10.4); Monocytes # 0.3 K/mm3 (0.1-1.0); Monocytes % 7.3 % (1.7-9.3); Neutrophils # 2.9 K/mm3 (1.8-7.8); Neutrophils % 78.1 % (37.0-80.0); Platelet Count 160 K/mm3 (142-424); Red Blood Count 2.45 M/mm3 (4.60-6.20); Red Cell Distribution Width 18.5 % (11.5-17.5); White Blood Count 3.7 K/mm3 (4.8-10.8)
[2023-11-27 09:55] LABS: Alanine Aminotransferase 18 U/L (12-78); Albumin Level 3.2 g/dl (3.5-5.0); Albumin/Globulin Ratio 1.2 (1.1-1.8); Alkaline Phosphatase 82 U/L (38-126); Anion Gap 9.7 mEq/L (5-15); Aspartate Amino Transferase 20 U/L (17-59); Bilirubin,Total 0.2 mg/dl (0.2-1.3); Blood Urea Nitrogen 13 mg/dl (9-20); Calcium 8.6 mg/dl (8.4-10.2); Carbon Dioxide 25 mmol/L (22.0-30.0); Chloride 104 mmol/L (98-107); Creatinine Clearance Estimated 76 mL/min (50-200); Estimated Glomerular Filt Rate 135 ml/min (>60); GFR (African American) 163 ML/MIN (>60); Globulin 2.6 g/dL (1.3-3.2); Glucose 132 mg/dl (74-100); Potassium 3.7 mmoL/L (3.5-5.1); Sodium 135 mmol/L (136-145); Total Protein,Serum 5.8 g/dl (6.3-8.2)
[2023-11-27 10:16] VITALS: BP 107/47; PULSE 54; RESP 18; TEMP 36.6; O2SAT 99
[2023-11-27] MEDS: SODIUM CHLORIDE 0.9% IV (10:16)
[2023-11-27] MEDS: VINORELBINE TARTRATE IV (10:16)
[2023-11-27] MEDS: SODIUM CHLORIDE 0.9% 50ML BAG 50 ML IV (10:18)
[2023-11-27 10:30] VITALS: BP 135/77; PULSE 58; RESP 18; O2SAT 99
[2023-11-27] MEDS: SODIUM CHLORIDE 0.9% 10ML FLUSH SYRINGE 10 ML IV (10:55)
== END 2023-11-27 10:35 | disposition home or self-care (01) ==
LOC: INF 09:13
PROVIDERS: PCP Internal Medicine; Visit Provider Internal Medicine Medical Oncology
DX: C34.90 Malignant neoplasm of unspecified part of unspecified bronchus or lung (principal)
CPT/HCPCS: 80053; 85025; 96409; J1642; J9390

== ENCOUNTER 2023-12-04 09:11 | Outpatient (CLI) | payer MEDICARE, SELFPAY ==
[2023-12-04 09:13] VITALS: BMI 25.9
[2023-12-04 09:38] LABS: Albumin Level 3.6 g/dl (3.5-5.0); Basophils % 0.2 % (0.1-2.0); Chloride 105 mmol/L (98-107); Eosinophils % 0.4 % (0.1-12.0); Hematocrit 24.3 % (42.0-52.0); Lymphocytes # 0.5 K/mm3 (0.7-4.5); Lymphocytes % 8.8 % (10-50); Mean Corpuscular HGB Conc 32.9 g/dL (31.8-35.4); Mean Corpuscular Hemoglobin 31.8 pg (27.0-31.2); Mean Corpuscular Volume 96.7 fl (80-94); Mean Platelet Volume 10.6 fl (7.4-10.4); Monocytes # 0.3 K/mm3 (0.1-1.0); Monocytes % 5.9 % (1.7-9.3); Neutrophils # 4.7 K/mm3 (1.8-7.8); Neutrophils % 84.6 % (37.0-80.0); Platelet Count 185 K/mm3 (142-424); Potassium 3.8 mmoL/L (3.5-5.1); Red Blood Count 2.52 M/mm3 (4.60-6.20); Sodium 135 mmol/L (136-145); White Blood Count 5.5 K/mm3 (4.8-10.8)
[2023-12-04 09:41] LABS: Alanine Aminotransferase 19 U/L (12-78); Albumin/Globulin Ratio 1.4 (1.1-1.8); Alkaline Phosphatase 102 U/L (38-126); Anion Gap 9.8 mEq/L (5-15); Aspartate Amino Transferase 24 U/L (17-59); Bilirubin,Total 0.5 mg/dl (0.2-1.3); Blood Urea Nitrogen 14 mg/dl (9-20); Calcium 8.6 mg/dl (8.4-10.2); Carbon Dioxide 24 mmol/L (22.0-30.0); Creatinine Clearance Estimated 73 mL/min (50-200); Estimated Glomerular Filt Rate 113 ml/min (>60); GFR (African American) 137 ML/MIN (>60); Globulin 2.6 g/dL (1.3-3.2); Glucose 131 mg/dl (74-100); Total Protein,Serum 6.2 g/dl (6.3-8.2)
[2023-12-04] MEDS: 0.9 % SODIUM CHLORIDE 1000ML 1,000 ML 999 ML IV (10:00)
[2023-12-04 10:05] VITALS: BP 117/56; PULSE 56; RESP 18; O2SAT 98
[2023-12-04 11:10] VITALS: BP 121/73; PULSE 57
== END 2023-12-04 11:10 | disposition home or self-care (01) ==
LOC: INF 09:12
PROVIDERS: PCP Internal Medicine; Visit Provider Internal Medicine Medical Oncology
DX: R91.8 Other nonspecific abnormal finding of lung field (principal)
CPT/HCPCS: 80053; 85025; 96360; J1642

== ENCOUNTER 2023-12-09 09:53 | Outpatient (CLI) | payer MEDICARE, SELFPAY ==
[2023-12-09 09:57] VITALS: BMI 27.2
--- NOTE | 2023-12-09 10:06 | CT_ITS ---
FINAL REPORT TECHNIQUE: After the administration of intravenous contrast, axial images were obtained through the abdomen and pelvis by computed tomography. This study was performed with technique to keep radiation doses as low as reasonably achievable, (ALARA). Individualized dose reduction techniques using automated exposure control or adjustment of the MA and/or KV according to the patient's size were employed. CLINICAL HISTORY: .LUNG CANCER COMPARISON: 10/07/2023 FINDINGS: Abdomen: There is a dominant mass in the anterior segment of the right hepatic lobe measuring 69 x 58 mm, previously measured 45 x 38 mm. There are multiple other new small masses consistent with new hepatic metastasis. There is gallbladder wall thickening, likely inflammatory. Small pancreatic body lipoma is stable. The spleen is borderline enlarged, but stable from prior exam. The adrenals are normal. . The kidneys enhance appropriately. The aorta is normal in caliber. There is no free fluid or adenopathy. Pelvis: Patient is status post left hip arthroplasty. The appendix is normal. The urinary bladder is unremarkable. There is no free fluid or adenopathy. IMPRESSION: Worsening dominant right hepatic lobe mass with multiple other new small masses consistent with new hepatic metastasis. Reviewed, Interpreted and Dictated by Rishi Booker III, MD Transcribed by Tiffanie Valdes Authenticated and [facility]
--- NOTE | 2023-12-09 10:11 | CT_ITS ---
FINAL REPORT CLINICAL HISTORY: LUNG CANCER COMPARISON: 10/07/2023 FINDINGS: Axial CT images of the chest were obtained with contrast. Coronal reformatted images were also obtained. This study was performed with techniques to keep radiation doses as low as reasonably achievable, (ALARA). Individualized dose reduction techniques using automated exposure control or adjustment of mA and/or KV according to the patient''''s size were employed. There is no evidence of mediastinal or hilar mass or adenopathy.No axillary mass or adenopathy is identified. On lung window images, no pulmonary mass or dominant pulmonary nodule is identified. There is a right jugular port in place. Patient is status post median sternotomy. Moderate stenosis is noted of the proximal left subclavian artery. There is a mass in the anterior right lower lobe measuring 44 x 32 mm, previously measured 35 x 30 mm. There is a stable left lower lobe nodule measuring 8 mm. No new mass or nodule is identified. IMPRESSION: 44 x 32 mm mass in the anterior right lower lobe, previously measured 35 x 30 mm. No new mass or nodule identified. Reviewed, Interpreted and Dictated by Rishi Booker III, MD Transcribed by Tiffanie Valdes Authenticated and [facility]
[2023-12-09 10:14] LABS: Basophils # 0.1 K/mm3 (0-0.2); Basophils % 0.3 % (0.1-2.0); Eosinophils # 0.1 K/mm3 (0.0-0.4); Eosinophils % 0.4 % (0.1-12.0); Hematocrit 28.3 % (42.0-52.0); Hemoglobin 8.5 g/dL (14.1-18.0); Lymphocytes % 7.1 % (10-50); Mean Corpuscular HGB Conc 30.1 g/dL (31.8-35.4); Mean Corpuscular Hemoglobin 29.6 pg (27.0-31.2); Mean Corpuscular Volume 98.3 fl (80-94); Mean Platelet Volume 10.4 fl (7.4-10.4); Monocytes # 1.2 K/mm3 (0.1-1.0); Monocytes % 8.5 % (1.7-9.3); Neutrophils # 11.7 K/mm3 (1.8-7.8); Neutrophils % 83.7 % (37.0-80.0); Platelet Count 248 K/mm3 (142-424); Red Blood Count 2.88 M/mm3 (4.60-6.20); Red Cell Distribution Width 19.1 % (11.5-17.5)
[2023-12-09 10:19] LABS: Albumin Level 3.4 g/dl (3.5-5.0); Chloride 105 mmol/L (98-107); Sodium 136 mmol/L (136-145)
[2023-12-09 10:20] LABS: Potassium 4.2 mmoL/L (3.5-5.1)
[2023-12-09 10:22] LABS: Alanine Aminotransferase 24 U/L (12-78); Alkaline Phosphatase 150 U/L (38-126); Aspartate Amino Transferase 27 U/L (17-59); Bilirubin,Total 0.4 mg/dl (0.2-1.3); Blood Urea Nitrogen 16 mg/dl (9-20); Creatinine Clearance Estimated 79 mL/min (50-200); Estimated Glomerular Filt Rate 135 ml/min (>60); GFR (African American) 163 ML/MIN (>60); Total Protein,Serum 6.1 g/dl (6.3-8.2)
[2023-12-09 10:23] LABS: Calcium 8.7 mg/dl (8.4-10.2); Glucose 141 mg/dl (74-100)
[2023-12-09] MEDS: IOPAMIDOL-370 (76%);100ML BOTTLE 75 ML IV (10:25)
[2023-12-09] MEDS: SODIUM CHLORIDE 0.9% 10ML SYR (RAD ONLY) 10 ML IV (10:25)
[2023-12-09 10:28] LABS: Albumin/Globulin Ratio 1.3 (1.1-1.8); Globulin 2.7 g/dL (1.3-3.2)
[2023-12-09] MEDS: SODIUM CHLORIDE 0.9% 10ML FLUSH SYRINGE 10 ML IV (10:35)
[2023-12-09 10:51] LABS: Anion Gap 10.2 mEq/L (5-15); Carbon Dioxide 25 mmol/L (22.0-30.0)
== END 2023-12-09 10:40 | disposition home or self-care (01) ==
LOC: RAD 09:54 → INF 09:58
PROVIDERS: PCP Internal Medicine Medical Oncology; Visit Provider Internal Medicine Medical Oncology
DX: C34.30 Malignant neoplasm of lower lobe, unspecified bronchus or lung (principal)
CPT/HCPCS: 36591; 71260; 74177; 80053; 85025; J1642; Q9967